=== PATIENT | female | born 1960 | race African-American/Black ===

== ENCOUNTER 2017-01-01 07:48 | Inpatient (IN) | payer MEDICAID, MEDICARE ==
[~2017-01-01] VITALS: Ht 162.6 cm; Wt 45.4 kg
[2017-01-01] VITALS (8 sets, daily range): BP systolic 83–115; BP diastolic 54–76
[2017-01-01] MEDS ORDERED: SODIUM CHLORIDE FLUSH 10ML SYR IVF ONE (08:00)
[2017-01-01] MEDS ORDERED: SODIUM CHLORIDE 0.9% 1,000ML IVBOLUS ONE ×2 (08:00→11:00)
[2017-01-01] MEDS ORDERED: DILTIAZEM 5 MG/ML, 5ML IV ONE (08:00)
[2017-01-01] MEDS ORDERED: DILTIAZEM 5 MG/ML, 5ML ONE ×3 (08:03→11:51)
[2017-01-01] MEDS ORDERED: LORazepam 2 MG/ML, 1ML ONE (08:08)
[2017-01-01 08:29] LABS: ASPARTATE AMINO TRANSFERASE 21 U/L (15-37); BLOOD UREA NITROGEN 12 mg/dL (7-18)
[2017-01-01] MEDS ORDERED: LORazepam 2 MG/ML, 1ML IVPush ONE (08:30)
[2017-01-01 08:34] LABS: IS PT STATUS REG ER OR PRE ER? YES
[2017-01-01] MEDS ORDERED: DILTIAZEM 5 MG/ML, 5ML IVPush ONE ×2 (09:00→12:00)
[2017-01-01 09:02] LABS: HEMOGLOBIN 11.6 g/dL (11.7-16.4)
[2017-01-01] MEDS ORDERED: FUROSEMIDE 20 MG/2 ML IV ONE (09:30)
[2017-01-01] MEDS ORDERED: DILTIAZEM 125 MG in SODIUM CHLORIDE 0.9% 100 ML IV PRN ×2 (09:30→18:00)
[2017-01-01] MEDS ORDERED: FUROSEMIDE 20 MG/2 ML ONE (09:42)
[2017-01-01] MEDS ORDERED: LEVOFLOXACIN/PMX 750MG/150ML 150 ML ONE (10:57)
[2017-01-01] MEDS ORDERED: LEVOFLOXACIN/PMX 750MG/150ML 150 ML IV ONE (11:00)
[2017-01-01] MEDS ORDERED: MAGNESIUM SULFATE PMX 2GM/50ML 50 ML IV ONE (11:00)
[2017-01-01] MEDS ORDERED: LEVO25TA2 PO (11:43)
[2017-01-01] MEDS ORDERED: NITR100C PO (11:43)
[2017-01-01] MEDS ORDERED: DOCUSATE 100 MG CAPSULE PO PRN (12:00)
[2017-01-01] MEDS ORDERED: BISACODYL 10 MG SUPP PR PRN (12:00)
[2017-01-01] MEDS ORDERED: LORazepam 1MG TABLET PO PRN (12:00)
[2017-01-01] MEDS ORDERED: ONDANSETRON ODT 4 MG PO PRN (12:00)
[2017-01-01] MEDS ORDERED: ONDANSETRON 2MG/ML, 2ML IVP PRN (12:00)
[2017-01-01] MEDS ORDERED: DIGOXIN 0.25 MG/ML, 2ML IVPush ONE (12:00)
[2017-01-01] MEDS ORDERED: LABETALOL 5MG/ML, 20ML IV PRN (12:00)
[2017-01-01] MEDS ORDERED: POLYETHYLENE GLYCOL 17 GM PACKET PO PRN (12:00)
[2017-01-01] MEDS ORDERED: POTASSIUM CHLORIDE 20 MEQ TAB.ER.PRT PO ONE (12:30)
[2017-01-01] MEDS ORDERED: ENOXAPARIN 60 MG/0.6 ML SQ SCH (13:30)
[2017-01-01] MEDS: NICOTINE 21 MG/24 HR PATCH.TD24 TD SCH (13:46)
[2017-01-01] MEDS: ALBUTEROL/IPRATROPIUM 2.5MG/0.5MG, 3 ML NPPB SCH ×2 (15:00→20:36)
[2017-01-01] MEDS ORDERED: ASPIRIN 81 MG TABLET EC PO SCH (15:30)
[2017-01-01] MEDS ORDERED: PROPYLTHIOURACIL 50 MG TABLET PO SCH (16:00)
[2017-01-01] MEDS: PROPRANOLOL 40 MG TABLET PO SCH ×3 (16:38→21:56)
[2017-01-01] MEDS: ENOXAPARIN 40 MG/0.4 ML SQ SCH ×2 (16:38→16:49)
[2017-01-01] MEDS: PROPYLTHIOURACIL 50 MG TABLET PO SCH (16:46)
[2017-01-01] MEDS ORDERED: PROP50TA3 PO (16:51)
[2017-01-01 17:50] LABS: RAPID INFLUENZA A Negative (Negative); RAPID INFLUENZA B Negative (Negative)
[2017-01-01] MEDS: MORPHINE SULFATE 4 MG/ML, 1ML IVPush PRN ×2 (19:18→22:01)
[2017-01-01] MEDS ORDERED: ATROPINE SYRINGE 0.1 MG/ML, 10ML ONE (23:27)
[2017-01-01] MEDS ORDERED: GLUCAGON 1 MG IVPush ONE (23:30)
[2017-01-01 23:52] LABS: ABG COLLECTION SITE RIGHT RADIAL; COLLATERAL CIRCULATION TESTING NORMAL
[2017-01-02] VITALS: BP 99/70
[2017-01-02] MEDS ORDERED: ATROPINE SYRINGE 0.1 MG/ML, 10ML IVPush ONE
[2017-01-02] MEDS ORDERED: GLUCAGON 1 MG IVPush PRN
[2017-01-02] MEDS ORDERED: CALCIUM GLUCONATE 4.6 MEQ in SODIUM CHLORIDE 0.9% 50 ML IV ONE
[2017-01-02] MEDS ORDERED: DEXTROSE 50%, 50ML SYRINGE ONE (00:02)
[2017-01-02 00:04] LABS: BLOOD UREA NITROGEN 12 mg/dL (7-18)
[2017-01-02] MEDS ORDERED: CODE BLUE RESPONSE XX ONE ×2 (00:10→01:30)
[2017-01-02] MEDS ORDERED: SODIUM BICARB 8.4%, 50ML SYRINGE ONE ×2 (00:10→00:55)
[2017-01-02] MEDS ORDERED: CALCIUM GLUCONATE 4.6 MEQ/10 ML ONE (00:10)
[2017-01-02] MEDS ORDERED: EPINEPHRINE SYRINGE 0.1 MG/ML, 10ML ONE ×2 (00:10→11:04)
[2017-01-02] MEDS ORDERED: AMIODARONE 50 MG/ML, 3ML ONE (00:10)
[2017-01-02] MEDS ORDERED: CALCIUM CHLORIDE 13.6 MEQ/10 ML ONE (00:10)
[2017-01-02] MEDS: PROPYLTHIOURACIL 50 MG TABLET PO SCH ×2 (00:11→08:11)
[2017-01-02] MEDS ORDERED: ALBUTEROL SULFATE 2.5 MG/3 ML ONE (00:12)
[2017-01-02 00:13] LABS: HEMOGLOBIN 12.2 g/dL (11.7-16.4)
[2017-01-02 00:14] LABS: DIFF TOTAL CELLS COUNTED 100 CELL DIFF
[2017-01-02 00:17] LABS: ANISOCYTOSIS 1+; POLYCHROMASIA 1+; VERIFY COUNTS? YES
[2017-01-02] MEDS ORDERED: EPINEPHRINE 2 MG in SODIUM CHLORIDE 0.9% 248 ML IV PRN (00:30)
[2017-01-02 00:43] LABS: ABG COLLECTION SITE RIGHT BRACHIAL
[2017-01-02] MEDS ORDERED: FUROSEMIDE 40 MG/4 ML IV ONE (01:00)
[2017-01-02] MEDS ORDERED: CEFTRIAXONE PMX 1GM/50ML 50 ML IV SCH (01:00)
[2017-01-02] MEDS ORDERED: SODIUM BICARB 8.4%, 50ML SYRINGE IVPush ONE (01:05)
[2017-01-02 01:16] LABS: BLOOD UREA NITROGEN 11 mg/dL (7-18)
[2017-01-02] MEDS ORDERED: PROPOFOL 100 ML IV ONE (01:47)
[2017-01-02] MEDS ORDERED: INSULIN REGULAR 100 UNITS/ML, 3ML VIAL IVPush ONE (02:00)
[2017-01-02 02:02] LABS: IS PT STATUS REG ER OR PRE ER? NO
[2017-01-02] MEDS ORDERED: LIDOCAINE-MPF 1%, 2ML ENDO PRN (02:30)
[2017-01-02] MEDS ORDERED: PHARMACY MAY ADJ FOR RENAL FX MC SCH (02:30)
[2017-01-02] MEDS: DOXYCYCLINE 100 MG in DEXTROSE 5% 250 ML IV SCH ×2 (03:45→15:38)
[2017-01-02] MEDS: EPINEPHRINE 4 MG in SODIUM CHLORIDE 0.9% 246 ML IV PRN ×2 (03:58→07:33)
[2017-01-02 04:51] LABS: BLOOD UREA NITROGEN 15 mg/dL (7-18)
[2017-01-02 04:56] LABS: ASPARTATE AMINO TRANSFERASE 188 U/L (15-37)
[2017-01-02] MEDS ORDERED: DOPAMINE/D5W PMX 250 ML ONE (05:03)
[2017-01-02 05:28] LABS: ICTOTEST NEGATIVE
[2017-01-02 05:46] VITALS: BP 130/80
[2017-01-02 05:47] LABS: DIFF TOTAL CELLS COUNTED 100 CELL DIFF
[2017-01-02 05:50] LABS: ANISOCYTOSIS 1+; POLYCHROMASIA 1+; VERIFY COUNTS? YES
[2017-01-02] MEDS: ASPIRIN 81 MG TABLET CHEW PO SCH (06:00)
[2017-01-02] MEDS: SODIUM BICARBONATE 8.4% 150 MEQ in DEXTROSE 5% 1,000 ML IV SCH ×3 (07:05→15:38)
[2017-01-02] MEDS: ALBUTEROL/IPRATROPIUM 2.5MG/0.5MG, 3 ML NPPB SCH ×4 (07:09→18:49)
[2017-01-02] MEDS: PROPOFOL 100 ML IV PRN ×2 (07:32→19:57)
[2017-01-02] MEDS: DOPAMINE/D5W PMX 250 ML IV PRN ×2 (08:00→14:49)
[2017-01-02] MEDS ORDERED: ATROPINE SYRINGE 0.1 MG/ML, 10ML ONE (11:05)
[2017-01-02 11:14] LABS: DAU SCREEN DISCLAIMER
[2017-01-02] MEDS ORDERED: LEVOFLOXACIN/PMX 750MG/150ML 150 ML IV SCH (11:30)
[2017-01-02 12:22] LABS: IS PT STATUS REG ER OR PRE ER? NO
[2017-01-02] MEDS: NICOTINE 21 MG/24 HR PATCH.TD24 TD SCH (15:42)
[2017-01-02] MEDS ORDERED: VANCOMYCIN PER PHARMACY MC PRN (17:30)
[2017-01-02] MEDS: MEROPENEM 1 GM in SODIUM CHLORIDE 0.9% 100 ML IV SCH (17:53)
[2017-01-02] MEDS: ENOXAPARIN 40 MG/0.4 ML SQ SCH (17:54)
[2017-01-02] MEDS ORDERED: PHARMACOKINETIC MONITORING MC PRN (18:00)
[2017-01-02] MEDS ORDERED: VANCOMYCIN PMX 1GM/200ML 200 ML IV SCH (18:00)
[2017-01-02] MEDS ORDERED: PHARMACOKINETIC CONSULTATION MC ONE (18:00)
[2017-01-02 18:19] LABS: ASPARTATE AMINO TRANSFERASE 686 U/L (15-37); BLOOD UREA NITROGEN 25 mg/dL (7-18)
[2017-01-02 18:25] LABS: IS PT STATUS REG ER OR PRE ER? NO
[2017-01-03] MEDS: SODIUM BICARBONATE 8.4% 150 MEQ in DEXTROSE 5% 1,000 ML IV SCH (00:03)
[2017-01-03] MEDS: EPINEPHRINE 4 MG in SODIUM CHLORIDE 0.9% 246 ML IV PRN ×2 (00:04→17:06)
[2017-01-03] MEDS: DOPAMINE/D5W PMX 250 ML IV PRN (00:04)
[2017-01-03] MEDS: MEROPENEM 1 GM in SODIUM CHLORIDE 0.9% 100 ML IV SCH ×3 (02:12→17:07)
[2017-01-03] MEDS: ASPIRIN 81 MG TABLET CHEW PO SCH ×2 (06:00→07:46)
[2017-01-03 06:16] LABS: ABG COLLECTION SITE LEFT RADIAL; COLLATERAL CIRCULATION TESTING NORMAL
[2017-01-03 06:21] LABS: ASPARTATE AMINO TRANSFERASE 476 U/L (15-37); BLOOD UREA NITROGEN 28 mg/dL (7-18)
[2017-01-03 06:33] LABS: HEMOGLOBIN 11.1 g/dL (11.7-16.4)
[2017-01-03 06:36] VITALS: BP 86/52
[2017-01-03] MEDS: ALBUTEROL/IPRATROPIUM 2.5MG/0.5MG, 3 ML NPPB SCH ×4 (07:24→22:45)
[2017-01-03] MEDS: PROPOFOL 100 ML IV PRN ×2 (10:08→17:14)
[2017-01-03] MEDS ORDERED: MAGNESIUM SULFATE PMX 4GM/100M 100 ML IV ONE (11:00)
[2017-01-03] MEDS: NS + 20MEQ KCL 1,000 ML IV SCH (12:19)
[2017-01-03] MEDS: NICOTINE 21 MG/24 HR PATCH.TD24 TD SCH (12:21)
[2017-01-03] MEDS: ENOXAPARIN 40 MG/0.4 ML SQ SCH (15:08)
[2017-01-03] MEDS: VANCOMYCIN PMX 1GM/200ML 200 ML IV SCH (21:58)
[2017-01-03] MEDS: MORPHINE SULFATE 4 MG/ML, 1ML IVPush PRN (21:58)
[2017-01-04] MEDS: NS + 20MEQ KCL 1,000 ML IV SCH ×3 (00:10→17:11)
[2017-01-04] MEDS: ALBUTEROL/IPRATROPIUM 2.5MG/0.5MG, 3 ML NPPB SCH ×5 (01:40→18:46)
[2017-01-04] MEDS: MEROPENEM 1 GM in SODIUM CHLORIDE 0.9% 100 ML IV SCH ×3 (02:22→17:11)
[2017-01-04 04:57] LABS: ABG COLLECTION SITE ARTERIAL LINE
[2017-01-04 05:02] LABS: ASPARTATE AMINO TRANSFERASE 161 U/L (15-37); BLOOD UREA NITROGEN 30 mg/dL (7-18)
[2017-01-04 05:08] LABS: HEMOGLOBIN 10.5 g/dL (11.7-16.4)
[2017-01-04] MEDS: PROPOFOL 100 ML IV PRN ×2 (07:32→17:40)
[2017-01-04] MEDS: MORPHINE SULFATE 4 MG/ML, 1ML IVPush PRN ×3 (07:43→22:41)
[2017-01-04] MEDS: QUETIAPINE 25MG TABLET PO SCH ×2 (12:14→20:37)
[2017-01-04] MEDS: NICOTINE 21 MG/24 HR PATCH.TD24 TD SCH (12:15)
[2017-01-04] MEDS ORDERED: ATROPINE SYRINGE 0.1 MG/ML, 10ML ONE (13:58)
[2017-01-04] MEDS ORDERED: OMNIPAQUE 350 MG/ML, 100ML BOTTLE ONE (16:08)
[2017-01-04] MEDS ORDERED: AMIODARONE 150 MG in DEXTROSE 5% 100 ML IV ONE (17:00)
[2017-01-04] MEDS: AMIODARONE 900 MG in DEXTROSE 5% 482 ML IV PRN (17:24)
[2017-01-04] MEDS: ENOXAPARIN 40 MG/0.4 ML SQ SCH (17:38)
[2017-01-04] MEDS ORDERED: HEPARIN 5,000 UNITS/ML, 1ML IV ONE (18:30)
[2017-01-04] MEDS: HEPARIN 25,000 UNITS/500ML PMX 500 ML IV PRN (19:40)
[2017-01-04] MEDS: VANCOMYCIN PMX 1GM/200ML 200 ML IV SCH (20:35)
[2017-01-05] MEDS: MEROPENEM 1 GM in SODIUM CHLORIDE 0.9% 100 ML IV SCH ×3 (01:34→17:39)
[2017-01-05] MEDS: NS + 20MEQ KCL 1,000 ML IV SCH ×2 (03:08→13:34)
[2017-01-05 04:33] LABS: ABG COLLECTION SITE RIGHT RADIAL; COLLATERAL CIRCULATION TESTING NORMAL
[2017-01-05] MEDS: MORPHINE SULFATE 4 MG/ML, 1ML IVPush PRN ×2 (04:59→09:34)
[2017-01-05 05:41] LABS: HEMOGLOBIN 9.9 g/dL (11.7-16.4)
[2017-01-05 05:55] LABS: BLOOD UREA NITROGEN 23 mg/dL (7-18)
[2017-01-05 06:00] LABS: ASPARTATE AMINO TRANSFERASE 57 U/L (15-37)
[2017-01-05] MEDS: ASPIRIN 81 MG TABLET CHEW PO SCH (06:24)
[2017-01-05] MEDS: ALBUTEROL/IPRATROPIUM 2.5MG/0.5MG, 3 ML NPPB SCH ×2 (07:00→11:00)
[2017-01-05] MEDS ORDERED: VANCOMYCIN PMX 1GM/200ML 200 ML IV SCH ×2 (08:30)
[2017-01-05] MEDS: QUETIAPINE 25MG TABLET PO SCH ×2 (09:33→21:13)
[2017-01-05] MEDS: HEPARIN 5,000 UNITS/ML, 1ML IV PRN ×2 (09:34→16:18)
[2017-01-05] MEDS ORDERED: PROPOFOL 10 MG/ML, 20ML ONE (11:01)
[2017-01-05] MEDS ORDERED: SUCCINYLCHOLINE 20 MG/ML, 10ML ONE (11:01)
[2017-01-05] MEDS ORDERED: ETOMIDATE 20 MG/10 ML ONE (11:01)
[2017-01-05] MEDS ORDERED: PROPOFOL 10 MG/ML, 100ML IV ONE (11:01)
[2017-01-05] MEDS: NICOTINE 21 MG/24 HR PATCH.TD24 TD SCH (12:53)
[2017-01-05] MEDS: AMIODARONE 900 MG in DEXTROSE 5% 482 ML IV PRN ×2 (12:53→23:31)
[2017-01-05] MEDS: AMIODARONE 200 MG TABLET PO SCH ×2 (14:33→21:13)
[2017-01-05] MEDS: OXYcodone IR 5MG TABLET PO PRN (16:13)
[2017-01-05] MEDS ORDERED: ALBUTEROL/IPRATROPIUM 2.5MG/0.5MG, 3 ML ONE ×2 (21:05→21:47)
[2017-01-05 21:31] LABS: ABG COLLECTION SITE LEFT BRACHIAL
[2017-01-05] MEDS ORDERED: LORazepam 2 MG/ML, 1ML ONE (21:42)
[2017-01-05] MEDS ORDERED: LORazepam 2 MG/ML, 1ML IVPush ONE (22:00)
[2017-01-05] MEDS ORDERED: FUROSEMIDE 40 MG/4 ML IV ONE (22:00)
[2017-01-05] MEDS ORDERED: AMIODARONE 150 MG in DEXTROSE 5% 100 ML IV ONE (22:00)
[2017-01-05] MEDS: PROPOFOL 100 ML IV PRN (22:30)
[2017-01-05] MEDS ORDERED: CALCIUM GLUCONATE 4.6 MEQ in SODIUM CHLORIDE 0.9% 50 ML IV ONE (22:30)
[2017-01-05] MEDS ORDERED: LIDOCAINE-MPF 1%, 2ML ENDO ONE (23:00)
[2017-01-05 23:25] LABS: HEMOGLOBIN 10.8 g/dL (11.7-16.4)
[2017-01-05 23:27] LABS: ASPARTATE AMINO TRANSFERASE 53 U/L (15-37); BLOOD UREA NITROGEN 19 mg/dL (7-18)
[2017-01-05] MEDS: methylPREDNISolone SOD SUCC 125 MG/2 ML IVPush SCH (23:49)
[2017-01-05 23:51] LABS: ABG COLLECTION SITE LEFT BRACHIAL
[2017-01-06] MEDS ORDERED: LIDOCAINE-MPF 1%, 2ML INFIL PRN
[2017-01-06] MEDS ORDERED: LORazepam 2 MG/ML, 1ML IVPush ONE (00:30)
[2017-01-06] MEDS: HEPARIN 5,000 UNITS/ML, 1ML IV PRN (00:49)
[2017-01-06] MEDS ORDERED: SUCCINYLCHOLINE 20 MG/ML, 10ML IVPush ONE (01:00)
[2017-01-06] MEDS ORDERED: ETOMIDATE 20 MG/10 ML IVPush ONE (01:00)
[2017-01-06] MEDS: HEPARIN 25,000 UNITS/500ML PMX 500 ML IV PRN (02:06)
[2017-01-06] MEDS: MEROPENEM 1 GM in SODIUM CHLORIDE 0.9% 100 ML IV SCH ×3 (02:07→18:22)
[2017-01-06] MEDS: PROPOFOL 100 ML IV PRN ×2 (02:25→15:34)
[2017-01-06] MEDS ORDERED: LIDOCAINE-MPF 1%, 2ML ENDO PRN (02:30)
[2017-01-06 04:38] LABS: ABG COLLECTION SITE LEFT RADIAL; COLLATERAL CIRCULATION TESTING NORMAL; HEMOGLOBIN 10.9 g/dL (11.7-16.4)
[2017-01-06 04:57] LABS: BLOOD UREA NITROGEN 25 mg/dL (7-18)
[2017-01-06] MEDS: methylPREDNISolone SOD SUCC 125 MG/2 ML IVPush SCH ×4 (05:10→20:57)
[2017-01-06 05:42] LABS: DIFF TOTAL CELLS COUNTED 100 CELL DIFF
[2017-01-06 05:43] LABS: VERIFY COUNTS? YES
[2017-01-06 05:44] LABS: POLYCHROMASIA 1+
[2017-01-06 05:45] LABS: HYPOCHROMIA 1+
[2017-01-06 05:46] LABS: LARGE PLATELETS 1+
[2017-01-06] MEDS: ASPIRIN 81 MG TABLET CHEW PO SCH (06:33)
[2017-01-06] MEDS ORDERED: ALBUMIN HUMAN 25% 100 ML IV ONE (09:00)
[2017-01-06] MEDS: AMIODARONE 200 MG TABLET PO SCH ×2 (10:05→20:57)
[2017-01-06] MEDS: QUETIAPINE 25MG TABLET PO SCH ×2 (10:05→20:56)
[2017-01-06] MEDS ORDERED: FUROSEMIDE 20 MG/2 ML IV ONE (10:30)
[2017-01-06] MEDS: NICOTINE 21 MG/24 HR PATCH.TD24 TD SCH (13:38)
[2017-01-07] MEDS: MEROPENEM 1 GM in SODIUM CHLORIDE 0.9% 100 ML IV SCH ×3 (01:11→16:20)
[2017-01-07] MEDS: PROPOFOL 100 ML IV PRN ×2 (01:11→15:35)
[2017-01-07] MEDS: FILTER 0.22 MICRON IV PRN (02:04)
[2017-01-07] MEDS: AMIODARONE 900 MG in DEXTROSE 5% 482 ML IV PRN (02:05)
[2017-01-07] MEDS: methylPREDNISolone SOD SUCC 125 MG/2 ML IVPush SCH ×4 (04:02→22:23)
[2017-01-07] MEDS: HEPARIN 25,000 UNITS/500ML PMX 500 ML IV PRN (04:05)
[2017-01-07 04:51] LABS: ABG COLLECTION SITE ARTERIAL LINE
[2017-01-07] MEDS: HEPARIN 5,000 UNITS/ML, 1ML IV PRN ×3 (05:51→20:21)
[2017-01-07] MEDS: ASPIRIN 81 MG TABLET CHEW PO SCH (06:42)
[2017-01-07] MEDS: AMIODARONE 200 MG TABLET PO SCH ×2 (07:52→20:22)
[2017-01-07] MEDS: QUETIAPINE 25MG TABLET PO SCH ×2 (07:52→20:22)
[2017-01-07 08:32] LABS: BLOOD UREA NITROGEN 35 mg/dL (7-18)
[2017-01-07] MEDS ORDERED: ALBUMIN HUMAN 25% 100 ML IV ONE (09:00)
[2017-01-07] MEDS ORDERED: FUROSEMIDE 40 MG/4 ML IV ONE (09:00)
[2017-01-07] MEDS: CHOLESTYRAMINE 4GM PACKET PO SCH ×2 (09:04→20:22)
[2017-01-07] MEDS: NICOTINE 21 MG/24 HR PATCH.TD24 TD SCH (12:00)
[2017-01-07] MEDS: ALBUTEROL/IPRATROPIUM 2.5MG/0.5MG, 3 ML NPPB PRN (22:53)
[2017-01-08] MEDS: MEROPENEM 1 GM in SODIUM CHLORIDE 0.9% 100 ML IV SCH ×3 (01:36→17:42)
[2017-01-08] MEDS: methylPREDNISolone SOD SUCC 125 MG/2 ML IVPush SCH ×4 (03:29→21:21)
[2017-01-08] MEDS: HEPARIN 25,000 UNITS/500ML PMX 500 ML IV PRN ×2 (03:36→22:02)
[2017-01-08 04:27] LABS: ABG COLLECTION SITE LEFT RADIAL; COLLATERAL CIRCULATION TESTING NORMAL
[2017-01-08 04:43] LABS: BLOOD UREA NITROGEN 35 mg/dL (7-18)
[2017-01-08] MEDS: ASPIRIN 81 MG TABLET CHEW PO SCH (06:31)
[2017-01-08] MEDS ORDERED: MAGNESIUM SULFATE PMX 2GM/50ML 50 ML IV ONE (07:00)
[2017-01-08] MEDS: AMIODARONE 200 MG TABLET PO SCH ×2 (08:04→21:20)
[2017-01-08] MEDS: QUETIAPINE 25MG TABLET PO SCH ×2 (08:04→21:20)
[2017-01-08] MEDS: CHOLESTYRAMINE 4GM PACKET PO SCH ×2 (08:04→21:20)
[2017-01-08 08:08] LABS: HEMOGLOBIN 9.7 g/dL (11.7-16.4)
[2017-01-08] MEDS: FILTER 0.22 MICRON IV PRN (08:12)
[2017-01-08] MEDS: AMIODARONE 900 MG in DEXTROSE 5% 482 ML IV PRN (08:12)
[2017-01-08 08:42] LABS: DIFF TOTAL CELLS COUNTED 100 CELL DIFF
[2017-01-08 08:43] LABS: VERIFY COUNTS? YES
[2017-01-08 08:44] LABS: LARGE PLATELETS 1+; POLYCHROMASIA 1+
[2017-01-08] MEDS: HEPARIN 5,000 UNITS/ML, 1ML IV PRN ×2 (08:59→22:50)
[2017-01-08] MEDS: ALBUMIN HUMAN 25% 100 ML IV SCH (09:54)
[2017-01-08] MEDS: FUROSEMIDE 40 MG/4 ML IV SCH (11:09)
[2017-01-08] MEDS: NICOTINE 21 MG/24 HR PATCH.TD24 TD SCH (11:12)
[2017-01-08] MEDS: MORPHINE SULFATE 4 MG/ML, 1ML IVPush PRN ×2 (19:28→22:30)
[2017-01-08] MEDS: ALBUTEROL/IPRATROPIUM 2.5MG/0.5MG, 3 ML NPPB PRN ×2 (19:35→21:45)
[2017-01-09] MEDS: MEROPENEM 1 GM in SODIUM CHLORIDE 0.9% 100 ML IV SCH ×3 (01:25→17:34)
[2017-01-09] MEDS: PROPOFOL 100 ML IV PRN (01:45)
[2017-01-09] MEDS: ALBUTEROL/IPRATROPIUM 2.5MG/0.5MG, 3 ML NPPB PRN (02:32)
[2017-01-09] MEDS: methylPREDNISolone SOD SUCC 125 MG/2 ML IVPush SCH ×4 (04:06→20:55)
[2017-01-09 04:58] LABS: HEMOGLOBIN 9.8 g/dL (11.7-16.4)
[2017-01-09 05:09] LABS: BLOOD UREA NITROGEN 35 mg/dL (7-18)
[2017-01-09] MEDS: ASPIRIN 81 MG TABLET CHEW PO SCH (05:09)
[2017-01-09] MEDS: CHOLESTYRAMINE 4GM PACKET PO SCH ×2 (09:00→20:53)
[2017-01-09] MEDS: INSULIN ASPART 100 UNITS/ML, PEN SQ-INSULIN SCH ×4 (09:07→20:55)
[2017-01-09] MEDS: ALBUMIN HUMAN 25% 100 ML IV SCH (09:07)
[2017-01-09] MEDS: QUETIAPINE 25MG TABLET PO SCH ×2 (09:47→20:55)
[2017-01-09] MEDS: AMIODARONE 200 MG TABLET PO SCH ×2 (09:47→20:55)
[2017-01-09] MEDS: FUROSEMIDE 40 MG/4 ML IV SCH (10:05)
[2017-01-09] MEDS: NICOTINE 21 MG/24 HR PATCH.TD24 TD SCH (12:23)
[2017-01-09] MEDS: HEPARIN 25,000 UNITS/500ML PMX 500 ML IV PRN (16:28)
[2017-01-10] MEDS: MEROPENEM 1 GM in SODIUM CHLORIDE 0.9% 100 ML IV SCH ×3 (01:39→17:25)
[2017-01-10] MEDS: methylPREDNISolone SOD SUCC 125 MG/2 ML IVPush SCH ×4 (03:56→21:55)
[2017-01-10 04:18] VITALS: BP 124/66
[2017-01-10] MEDS: ASPIRIN 81 MG TABLET CHEW PO SCH (05:14)
[2017-01-10 07:38] LABS: ABG COLLECTION SITE LEFT RADIAL; COLLATERAL CIRCULATION TESTING NORMAL
[2017-01-10 07:41] LABS: HEMOGLOBIN 9.6 g/dL (11.7-16.4)
[2017-01-10 07:46] LABS: BLOOD UREA NITROGEN 37 mg/dL (7-18)
[2017-01-10] MEDS: INSULIN ASPART 100 UNITS/ML, PEN SQ-INSULIN SCH ×4 (07:58→23:00)
[2017-01-10] MEDS: ALBUMIN HUMAN 25% 100 ML IV SCH ×2 (08:06→19:17)
[2017-01-10 08:09] LABS: DIFF TOTAL CELLS COUNTED 100 CELL DIFF
[2017-01-10 08:16] LABS: VERIFY COUNTS? YES
[2017-01-10 08:17] LABS: LARGE PLATELETS 1+; POLYCHROMASIA 1+
[2017-01-10] MEDS: HEPARIN 25,000 UNITS/500ML PMX 500 ML IV PRN (08:28)
[2017-01-10] MEDS: FUROSEMIDE 40 MG/4 ML IV SCH ×2 (09:28→20:30)
[2017-01-10] MEDS: AMIODARONE 200 MG TABLET PO SCH (11:27)
[2017-01-10] MEDS: CHOLESTYRAMINE 4GM PACKET PO SCH ×2 (11:27→21:00)
[2017-01-10] MEDS: NICOTINE 21 MG/24 HR PATCH.TD24 TD SCH (11:57)
[2017-01-10] MEDS: AMIODARONE 150 MG in DEXTROSE 5% 100 ML IV SCH (21:38)
[2017-01-11] MEDS: HEPARIN 25,000 UNITS/500ML PMX 500 ML IV PRN ×2 (00:06→17:53)
[2017-01-11] MEDS: MEROPENEM 1 GM in SODIUM CHLORIDE 0.9% 100 ML IV SCH ×3 (01:44→17:38)
[2017-01-11] MEDS: MORPHINE SULFATE 4 MG/ML, 1ML IVPush PRN ×3 (01:49→23:00)
[2017-01-11] MEDS: INSULIN ASPART 100 UNITS/ML, PEN SQ-INSULIN SCH ×4 (04:37→22:57)
[2017-01-11] MEDS: methylPREDNISolone SOD SUCC 125 MG/2 ML IVPush SCH ×2 (04:37→10:18)
[2017-01-11 04:39] LABS: HEMOGLOBIN 10.4 g/dL (11.7-16.4)
[2017-01-11 04:49] LABS: BLOOD UREA NITROGEN 34 mg/dL (7-18)
[2017-01-11 04:52] LABS: ASPARTATE AMINO TRANSFERASE 29 U/L (15-37)
[2017-01-11] MEDS: ASPIRIN 81 MG TABLET CHEW PO SCH (05:54)
[2017-01-11] MEDS: ALBUMIN HUMAN 25% 100 ML IV SCH ×2 (08:03→19:30)
[2017-01-11] MEDS: CHOLESTYRAMINE 4GM PACKET PO SCH ×2 (09:00→21:00)
[2017-01-11] MEDS: FAMOTIDINE 20 MG/2 ML IVPush SCH ×2 (09:24→20:40)
[2017-01-11] MEDS: FUROSEMIDE 40 MG/4 ML IV SCH ×2 (09:25→20:40)
[2017-01-11] MEDS: AMIODARONE 150 MG in DEXTROSE 5% 100 ML IV SCH ×2 (10:18→20:39)
[2017-01-11] MEDS ORDERED: ALBUTEROL/IPRATROPIUM 2.5MG/0.5MG, 3 ML ONE (12:03)
[2017-01-11] MEDS: NICOTINE 21 MG/24 HR PATCH.TD24 TD SCH (17:10)
[2017-01-11] MEDS: methylPREDNISolone SOD SUCC 40 MG/ML IVPush SCH (17:38)
[2017-01-12] MEDS: MEROPENEM 1 GM in SODIUM CHLORIDE 0.9% 100 ML IV SCH ×3 (01:31→17:58)
[2017-01-12] MEDS: methylPREDNISolone SOD SUCC 40 MG/ML IVPush SCH ×3 (02:11→17:57)
[2017-01-12] MEDS: INSULIN ASPART 100 UNITS/ML, PEN SQ-INSULIN SCH ×4 (04:33→23:00)
[2017-01-12 04:44] LABS: HEMOGLOBIN 10.6 g/dL (11.7-16.4)
[2017-01-12 04:50] LABS: ASPARTATE AMINO TRANSFERASE 26 U/L (15-37); BLOOD UREA NITROGEN 36 mg/dL (7-18)
[2017-01-12] MEDS ORDERED: POTASSIUM CHLORIDE 40 MEQ in SODIUM CHLORIDE 0.9% 500 ML IV ONE (06:00)
[2017-01-12] MEDS: ASPIRIN 81 MG TABLET CHEW PO SCH (06:00)
[2017-01-12] MEDS: ALBUMIN HUMAN 25% 100 ML IV SCH (08:08)
[2017-01-12] MEDS: AMIODARONE 150 MG in DEXTROSE 5% 100 ML IV SCH (09:00)
[2017-01-12] MEDS: FUROSEMIDE 40 MG/4 ML IV SCH (09:00)
[2017-01-12] MEDS ORDERED: POTASSIUM CHLORIDE 10% 40 MEQ/30 ML UDC PO ONE (09:30)
[2017-01-12] MEDS: FAMOTIDINE 20 MG/2 ML IVPush SCH ×2 (09:30→22:05)
[2017-01-12] MEDS ORDERED: MAGNESIUM SULFATE PMX 4GM/100M 100 ML IV ONE (09:30)
[2017-01-12] MEDS: CHOLESTYRAMINE 4GM PACKET PO SCH ×2 (09:31→21:00)
[2017-01-12] MEDS: AMIODARONE 200 MG TABLET PO SCH ×2 (09:46→21:00)
[2017-01-12] MEDS: CARVEDILOL 3.125 MG TABLET PO SCH ×2 (09:46→17:57)
[2017-01-12] MEDS: HEPARIN 25,000 UNITS/500ML PMX 500 ML IV PRN (11:08)
[2017-01-12] MEDS: LISINOPRIL 5 MG TABLET PO SCH ×2 (12:12→21:00)
[2017-01-12] MEDS: NICOTINE 21 MG/24 HR PATCH.TD24 TD SCH (12:12)
[2017-01-12] MEDS ORDERED: FUROSEMIDE 20 MG/2 ML IV ONE (18:00)
[2017-01-12 21:48] VITALS: BP_SYST 172; BP_SYST 177; BP_DIAS 108
[2017-01-12] MEDS: MORPHINE SULFATE 4 MG/ML, 1ML IVPush PRN ×2 (22:05→22:52)
[2017-01-12] MEDS ORDERED: FUROSEMIDE 40 MG/4 ML ONE (22:18)
[2017-01-12] MEDS ORDERED: FUROSEMIDE 40 MG/4 ML IV ONE (22:30)
[2017-01-12 22:53] LABS: ABG COLLECTION SITE RIGHT BRACHIAL
[2017-01-12] MEDS: AMIODARONE 900 MG in DEXTROSE 5% 482 ML IV PRN (23:46)
[2017-01-12] MEDS: FILTER 0.22 MICRON IV PRN (23:46)
[2017-01-13 00:22] VITALS: BP 161/98
[2017-01-13] MEDS: MEROPENEM 1 GM in SODIUM CHLORIDE 0.9% 100 ML IV SCH ×3 (02:00→19:00)
[2017-01-13] MEDS: MORPHINE SULFATE 4 MG/ML, 1ML IVPush PRN ×3 (03:05→20:42)
[2017-01-13] MEDS: methylPREDNISolone SOD SUCC 40 MG/ML IVPush SCH ×3 (03:05→19:00)
[2017-01-13] MEDS: HEPARIN 25,000 UNITS/500ML PMX 500 ML IV PRN ×2 (05:07→17:06)
[2017-01-13 05:29] LABS: HEMOGLOBIN 10.8 g/dL (11.7-16.4)
[2017-01-13] MEDS: CARVEDILOL 3.125 MG TABLET PO SCH (05:54)
[2017-01-13] MEDS: ASPIRIN 81 MG TABLET CHEW PO SCH (05:54)
[2017-01-13 05:57] LABS: ASPARTATE AMINO TRANSFERASE 27 U/L (15-37); BLOOD UREA NITROGEN 28 mg/dL (7-18)
[2017-01-13] MEDS: INSULIN ASPART 100 UNITS/ML, PEN SQ-INSULIN SCH ×4 (06:02→23:00)
[2017-01-13 06:41] VITALS: BP 137/78
[2017-01-13] MEDS: CHOLESTYRAMINE 4GM PACKET PO SCH (09:00)
[2017-01-13] MEDS: LISINOPRIL 5 MG TABLET PO SCH ×2 (09:00→21:00)
[2017-01-13] MEDS: AMIODARONE 200 MG TABLET PO SCH ×2 (09:00→21:00)
[2017-01-13] MEDS: FAMOTIDINE 20 MG/2 ML IVPush SCH ×2 (11:43→20:59)
[2017-01-13] MEDS: NICOTINE 21 MG/24 HR PATCH.TD24 TD SCH (11:43)
[2017-01-13 14:42] VITALS: BP 157/101
[2017-01-13] MEDS: AMIODARONE 900 MG in DEXTROSE 5% 482 ML IV PRN (17:03)
[2017-01-13] MEDS: FILTER 0.22 MICRON IV PRN (17:03)
[2017-01-13 17:22] VITALS: BP 164/98
[2017-01-13 18:57] VITALS: BP 161/100
[2017-01-13] MEDS: hydrALAzine 20 MG/ML, 1ML IV PRN (18:57)
[2017-01-13 20:00] VITALS: BP 129/89
[2017-01-14] VITALS (12 sets, daily range): BP systolic 122–178; BP diastolic 62–117
[2017-01-14] MEDS: MORPHINE SULFATE 4 MG/ML, 1ML IVPush PRN ×3 (01:54→21:02)
[2017-01-14] MEDS: MEROPENEM 1 GM in SODIUM CHLORIDE 0.9% 100 ML IV SCH ×3 (04:14→21:26)
[2017-01-14] MEDS: methylPREDNISolone SOD SUCC 40 MG/ML IVPush SCH ×3 (04:15→21:02)
[2017-01-14] MEDS: INSULIN ASPART 100 UNITS/ML, PEN SQ-INSULIN SCH ×4 (05:10→23:31)
[2017-01-14 05:30] LABS: HEMOGLOBIN 10.3 g/dL (11.7-16.4)
[2017-01-14 05:41] LABS: BLOOD UREA NITROGEN 23 mg/dL (7-18)
[2017-01-14 05:44] LABS: ASPARTATE AMINO TRANSFERASE 35 U/L (15-37)
[2017-01-14] MEDS: ASPIRIN 81 MG TABLET CHEW PO SCH (06:33)
[2017-01-14] MEDS: FAMOTIDINE 20 MG/2 ML IVPush SCH ×2 (08:54→21:02)
[2017-01-14] MEDS: AMIODARONE 200 MG TABLET PO SCH ×2 (08:54→21:02)
[2017-01-14] MEDS: LISINOPRIL 5 MG TABLET PO SCH ×2 (08:55→21:01)
[2017-01-14] MEDS: HEPARIN 25,000 UNITS/500ML PMX 500 ML IV PRN (10:21)
[2017-01-14] MEDS: hydrALAzine 20 MG/ML, 1ML IV PRN (10:22)
[2017-01-14] MEDS: NICOTINE 21 MG/24 HR PATCH.TD24 TD SCH (11:56)
[2017-01-14] MEDS ORDERED: FUROSEMIDE 20 MG/2 ML IV ONE (13:30)
[2017-01-14] MEDS ORDERED: POTASSIUM CHLORIDE 20 MEQ PACKET PO ONE (15:00)
[2017-01-14] MEDS ORDERED: MAGNESIUM SULFATE PMX 2GM/50ML 50 ML IV ONE (15:30)
[2017-01-14 17:28] LABS: DAU SCREEN DISCLAIMER
[2017-01-15] MEDS ORDERED: LORazepam 2 MG/ML, 1ML IVPush ONE ×2 (00:05→01:50)
[2017-01-15 00:42] LABS: ABG COLLECTION SITE LEFT RADIAL; COLLATERAL CIRCULATION TESTING NORMAL
[2017-01-15 00:52] LABS: IS PT STATUS REG ER OR PRE ER? NO
[2017-01-15] MEDS ORDERED: FUROSEMIDE 20 MG/2 ML IV ONE ×2 (01:30)
[2017-01-15 02:42] VITALS: BP 126/77
[2017-01-15] MEDS: methylPREDNISolone SOD SUCC 40 MG/ML IVPush SCH ×3 (04:52→21:36)
[2017-01-15] MEDS: MEROPENEM 1 GM in SODIUM CHLORIDE 0.9% 100 ML IV SCH ×3 (04:52→21:36)
[2017-01-15] MEDS: INSULIN ASPART 100 UNITS/ML, PEN SQ-INSULIN SCH ×3 (05:00→17:00)
[2017-01-15] MEDS: HEPARIN 25,000 UNITS/500ML PMX 500 ML IV PRN (05:23)
[2017-01-15 05:54] LABS: HEMOGLOBIN 10.7 g/dL (11.7-16.4)
[2017-01-15] MEDS: ASPIRIN 81 MG TABLET CHEW PO SCH (06:00)
[2017-01-15 06:04] LABS: BLOOD UREA NITROGEN 25 mg/dL (7-18)
[2017-01-15 06:08] LABS: IS PT STATUS REG ER OR PRE ER? NO
[2017-01-15 08:09] VITALS: BP 158/77
[2017-01-15] MEDS: AMIODARONE 900 MG in DEXTROSE 5% 482 ML IV PRN (08:49)
[2017-01-15] MEDS ORDERED: AMIODARONE 150 MG in DEXTROSE 5% 100 ML IV ONE (09:00)
[2017-01-15] MEDS ORDERED: POTASSIUM CHLORIDE 20 MEQ TAB.ER.PRT PO ONE ×2 (09:00→12:30)
[2017-01-15] MEDS: FAMOTIDINE 20 MG/2 ML IVPush SCH ×2 (09:00→21:36)
[2017-01-15] MEDS: AMIODARONE 200 MG TABLET PO SCH ×2 (09:00→21:00)
[2017-01-15] MEDS: LISINOPRIL 5 MG TABLET PO SCH ×2 (09:00→21:00)
[2017-01-15 09:11] LABS: ABG COLLECTION SITE LEFT RADIAL; COLLATERAL CIRCULATION TESTING NORMAL
[2017-01-15] MEDS ORDERED: FUROSEMIDE 40 MG/4 ML ONE (09:11)
[2017-01-15] MEDS ORDERED: FUROSEMIDE 40 MG/4 ML IV ONE (09:30)
[2017-01-15] MEDS: NICOTINE 21 MG/24 HR PATCH.TD24 TD SCH (12:38)
[2017-01-15 13:29] LABS: IS PT STATUS REG ER OR PRE ER? NO
[2017-01-15] MEDS ORDERED: POTASSIUM CHLORIDE 40 MEQ in SODIUM CHLORIDE 0.9% 500 ML IV ONE (17:00)
[2017-01-15 17:35] VITALS: BP 154/96
[2017-01-15 20:00] VITALS: BP 147/94
[2017-01-16] VITALS (9 sets, daily range): BP systolic 133–165; BP diastolic 84–101
[2017-01-16] MEDS: HEPARIN 25,000 UNITS/500ML PMX 500 ML IV PRN (01:04)
[2017-01-16] MEDS: INSULIN ASPART 100 UNITS/ML, PEN SQ-INSULIN SCH ×5 (01:04→23:45)
[2017-01-16] MEDS: methylPREDNISolone SOD SUCC 40 MG/ML IVPush SCH ×3 (04:20→22:10)
[2017-01-16 05:25] LABS: HEMOGLOBIN 10.1 g/dL (11.7-16.4)
[2017-01-16 05:33] LABS: BLOOD UREA NITROGEN 27 mg/dL (7-18)
[2017-01-16 05:37] LABS: ASPARTATE AMINO TRANSFERASE 24 U/L (15-37)
[2017-01-16] MEDS: ASPIRIN 81 MG TABLET CHEW PO SCH (06:00)
[2017-01-16] MEDS ORDERED: LORazepam 2 MG/ML, 1ML IVPush ONE ×2 (08:30→15:30)
[2017-01-16] MEDS: LISINOPRIL 5 MG TABLET PO SCH ×2 (08:44→22:10)
[2017-01-16] MEDS: AMIODARONE 200 MG TABLET PO SCH ×2 (08:44→21:00)
[2017-01-16] MEDS ORDERED: SODIUM CHLORIDE 0.9% 1,000 ML IV SCH (09:48)
[2017-01-16] MEDS ORDERED: VANCOMYCIN PMX 1GM/200ML 200 ML IVPB ONE (11:00)
[2017-01-16] MEDS: FAMOTIDINE 20 MG/2 ML IVPush SCH ×2 (11:30→23:33)
[2017-01-16] MEDS: NICOTINE 21 MG/24 HR PATCH.TD24 TD SCH ×2 (12:00→16:23)
[2017-01-16] MEDS: hydrALAzine 20 MG/ML, 1ML IV PRN (13:02)
[2017-01-16] MEDS ORDERED: MAGNESIUM SULFATE PMX 2GM/50ML 50 ML IV ONE (15:30)
[2017-01-16] MEDS ORDERED: FUROSEMIDE 40 MG/4 ML IV ONE (17:00)
[2017-01-16] MEDS ORDERED: CEFAZOLIN 1,000 MG ONE ×2 (17:36→17:46)
[2017-01-16] MEDS ORDERED: FENTANYL PF 100 MCG/2ML ONE ×2 (17:36→17:45)
[2017-01-16] MEDS ORDERED: MIDAZOLAM 1 MG/ML, 5ML ONE ×2 (17:36→17:46)
[2017-01-16] MEDS ORDERED: CEFAZOLIN PMX 1GM/50ML 0 ML ONE ×2 (17:36→17:46)
[2017-01-16] MEDS ORDERED: LIDOCAINE 2%, 20ML ONE ×2 (17:36→17:46)
[2017-01-16] MEDS: AMIODARONE 900 MG in DEXTROSE 5% 482 ML IV PRN (17:54)
[2017-01-17 01:43] VITALS: BP 152/85
[2017-01-17] MEDS: HEPARIN 25,000 UNITS/500ML PMX 500 ML IV PRN (03:29)
[2017-01-17] MEDS: OXYcodone IR 5MG TABLET PO PRN ×2 (04:42→20:18)
[2017-01-17] MEDS: INSULIN ASPART 100 UNITS/ML, PEN SQ-INSULIN SCH ×3 (05:00→17:00)
[2017-01-17 06:01] LABS: HEMOGLOBIN 10.8 g/dL (11.7-16.4)
[2017-01-17] MEDS: methylPREDNISolone SOD SUCC 40 MG/ML IVPush SCH ×2 (06:07→14:24)
[2017-01-17] MEDS: ASPIRIN 81 MG TABLET CHEW PO SCH (06:07)
[2017-01-17 06:08] LABS: BLOOD UREA NITROGEN 29 mg/dL (7-18)
[2017-01-17 06:55] VITALS: BP 140/76
[2017-01-17] MEDS: LISINOPRIL 5 MG TABLET PO SCH ×2 (09:00→20:17)
[2017-01-17] MEDS: AMIODARONE 200 MG TABLET PO SCH (09:00)
[2017-01-17] MEDS: SODIUM CHLORIDE 0.9% 1,000 ML IV SCH (09:48)
[2017-01-17] MEDS ORDERED: VANCOMYCIN PMX 1GM/200ML 200 ML ONE (09:53)
[2017-01-17] MEDS ORDERED: VANCOMYCIN 500 MG ONE (09:53)
[2017-01-17] MEDS ORDERED: DIPHENHYDRAMINE 50 MG/ML, 1ML ONE (09:56)
[2017-01-17] MEDS ORDERED: MIDAZOLAM 1 MG/ML, 5ML ONE (09:56)
[2017-01-17] MEDS ORDERED: FENTANYL PF 100 MCG/2ML ONE (09:56)
[2017-01-17] MEDS ORDERED: HYDROcodone/APAP 5/325 TABLET PO PRN (10:00)
[2017-01-17] MEDS ORDERED: LIDOCAINE 2%, 20ML ONE (10:09)
[2017-01-17 12:42] VITALS: BP 157/82
[2017-01-17] MEDS: AMIODARONE 900 MG in DEXTROSE 5% 482 ML IV SCH ×2 (13:15→20:21)
[2017-01-17] MEDS ORDERED: HEPARIN 25,000 UNITS/500ML PMX 500 ML IV PRN (14:00)
[2017-01-17] MEDS: NICOTINE 21 MG/24 HR PATCH.TD24 TD SCH (14:24)
[2017-01-17] MEDS: FAMOTIDINE 20 MG/2 ML IVPush SCH ×2 (14:24→20:17)
[2017-01-17] MEDS: SODIUM CHLORIDE FLUSH 10ML SYR IVF SCH (20:17)
[2017-01-18] MEDS: methylPREDNISolone SOD SUCC 40 MG/ML IVPush SCH ×3 (00:05→16:09)
[2017-01-18] MEDS: INSULIN ASPART 100 UNITS/ML, PEN SQ-INSULIN SCH ×5 (00:10→23:00)
[2017-01-18 00:28] VITALS: BP 165/83
[2017-01-18] MEDS ORDERED: FUROSEMIDE 20 MG/2 ML IV ONE (00:40)
[2017-01-18] MEDS: SODIUM CHLORIDE 0.9% 1,000 ML IV SCH ×2 (00:57→12:28)
[2017-01-18] MEDS: CLINDAMYCIN PMX 600MG/50ML 50 ML IV SCH ×3 (01:15→18:07)
[2017-01-18] MEDS: ASPIRIN 81 MG TABLET CHEW PO SCH (04:37)
[2017-01-18 06:34] LABS: BLOOD UREA NITROGEN 28 mg/dL (7-18)
[2017-01-18 06:40] LABS: ASPARTATE AMINO TRANSFERASE 41 U/L (15-37)
[2017-01-18 06:53] LABS: DIFF TOTAL CELLS COUNTED 100 CELL DIFF
[2017-01-18 06:55] LABS: ANISOCYTOSIS 1+
[2017-01-18] MEDS ORDERED: HEPARIN 5,000 UNITS/ML, 1ML IV ONE (07:00)
[2017-01-18] MEDS ORDERED: HEPARIN 25,000 UNITS/500ML PMX 500 ML IV PRN ×2 (07:00)
[2017-01-18] MEDS ORDERED: HEPARIN 5,000 UNITS/ML, 1ML IV PRN (07:00)
[2017-01-18 07:05] LABS: VERIFY COUNTS? YES
[2017-01-18 07:32] VITALS: BP 147/90
[2017-01-18] MEDS: FAMOTIDINE 20 MG/2 ML IVPush SCH ×2 (08:51→21:53)
[2017-01-18] MEDS: SODIUM CHLORIDE FLUSH 10ML SYR IVF SCH ×2 (08:51→21:53)
[2017-01-18] MEDS: LISINOPRIL 5 MG TABLET PO SCH ×2 (08:52→21:54)
[2017-01-18] MEDS: RIVAROXABAN 15 MG TABLET PO SCH ×2 (12:05→18:24)
[2017-01-18] MEDS: METOPROLOL TARTRATE 25 MG TABLET PO SCH ×2 (12:07→18:30)
[2017-01-18] MEDS: AMIODARONE 200 MG TABLET PO SCH ×2 (12:12→21:54)
[2017-01-18 13:43] VITALS: BP 152/84
[2017-01-18] MEDS: NICOTINE 21 MG/24 HR PATCH.TD24 TD SCH (14:35)
[2017-01-18] MEDS ORDERED: POTASSIUM CHLORIDE 20 MEQ TAB.ER.PRT PO ONE ×2 (15:00→19:00)
[2017-01-18 18:46] VITALS: BP 136/82
[2017-01-18] MEDS ORDERED: MAGNESIUM SULFATE PMX 2GM/50ML 50 ML IV ONE (23:00)
[2017-01-19] MEDS: METOPROLOL TARTRATE 25 MG TABLET PO SCH (01:21)
[2017-01-19] MEDS: CLINDAMYCIN PMX 600MG/50ML 50 ML IV SCH ×3 (01:31→17:03)
[2017-01-19] MEDS: methylPREDNISolone SOD SUCC 40 MG/ML IVPush SCH ×3 (01:31→17:03)
[2017-01-19 03:07] VITALS: BP 138/76
[2017-01-19] MEDS: INSULIN ASPART 100 UNITS/ML, PEN SQ-INSULIN SCH ×2 (05:00→11:00)
[2017-01-19] MEDS: ASPIRIN 81 MG TABLET CHEW PO SCH (05:01)
[2017-01-19 05:52] LABS: ASPARTATE AMINO TRANSFERASE 27 U/L (15-37); BLOOD UREA NITROGEN 28 mg/dL (7-18)
[2017-01-19 05:53] LABS: HEMOGLOBIN 12.6 g/dL (11.7-16.4)
[2017-01-19 06:21] LABS: DIFF TOTAL CELLS COUNTED 100 CELL DIFF
[2017-01-19 06:28] LABS: ANISOCYTOSIS 1+; VERIFY COUNTS? YES
[2017-01-19 06:30] LABS: MICROCYTOSIS 1+
[2017-01-19 06:31] LABS: POLYCHROMASIA 1+
[2017-01-19 07:27] VITALS: BP 156/73
[2017-01-19] MEDS: SODIUM CHLORIDE FLUSH 10ML SYR IVF SCH ×2 (09:00→21:44)
[2017-01-19] MEDS: AMIODARONE 200 MG TABLET PO SCH ×2 (09:32→21:43)
[2017-01-19] MEDS: RIVAROXABAN 15 MG TABLET PO SCH ×2 (09:33→17:03)
[2017-01-19] MEDS: LISINOPRIL 5 MG TABLET PO SCH ×2 (09:34→21:43)
[2017-01-19] MEDS: FAMOTIDINE 20 MG/2 ML IVPush SCH ×2 (09:37→21:44)
[2017-01-19] MEDS: NICOTINE 21 MG/24 HR PATCH.TD24 TD SCH (13:00)
[2017-01-19 14:00] VITALS: BP 138/87
[2017-01-19] MEDS: METOPROLOL TARTRATE 50 MG TABLET PO SCH (17:05)
[2017-01-19 19:13] VITALS: BP 118/69
[2017-01-20 01:22] VITALS: BP 145/76
[2017-01-20] MEDS: methylPREDNISolone SOD SUCC 40 MG/ML IVPush SCH ×2 (01:38→08:01)
[2017-01-20] MEDS: CLINDAMYCIN PMX 600MG/50ML 50 ML IV SCH ×2 (01:38→09:03)
[2017-01-20 05:30] VITALS: BP 148/69
[2017-01-20] MEDS: ASPIRIN 81 MG TABLET CHEW PO SCH (05:31)
[2017-01-20] MEDS: METOPROLOL TARTRATE 50 MG TABLET PO SCH ×2 (05:31→18:16)
[2017-01-20 07:47] VITALS: BP 130/79
[2017-01-20] MEDS: FAMOTIDINE 20 MG/2 ML IVPush SCH (08:01)
[2017-01-20] MEDS: LISINOPRIL 5 MG TABLET PO SCH ×2 (08:01→21:32)
[2017-01-20] MEDS: AMIODARONE 200 MG TABLET PO SCH ×3 (08:02→21:32)
[2017-01-20] MEDS: RIVAROXABAN 15 MG TABLET PO SCH ×2 (08:03→18:16)
[2017-01-20] MEDS: SODIUM CHLORIDE FLUSH 10ML SYR IVF SCH ×2 (08:03→21:32)
[2017-01-20] MEDS: POTASSIUM CHLORIDE 20 MEQ TAB.ER.PRT PO SCH ×2 (09:44→17:00)
[2017-01-20] MEDS: NICOTINE 21 MG/24 HR PATCH.TD24 TD SCH (12:32)
[2017-01-20 16:07] VITALS: BP 127/72
[2017-01-20 21:00] VITALS: BP 117/67
[2017-01-21 03:35] VITALS: BP 94/64
[2017-01-21] MEDS: ASPIRIN 81 MG TABLET CHEW PO SCH (05:33)
[2017-01-21] MEDS: METOPROLOL TARTRATE 50 MG TABLET PO SCH ×2 (05:33→16:55)
[2017-01-21 06:37] LABS: BLOOD UREA NITROGEN 35 mg/dL (7-18)
[2017-01-21 06:50] VITALS: BP 108/72
[2017-01-21 07:06] LABS: DIFF TOTAL CELLS COUNTED 100 CELL DIFF; HEMOGLOBIN 13.8 g/dL (11.7-16.4)
[2017-01-21 07:07] LABS: VERIFY COUNTS? YES
[2017-01-21 07:09] LABS: ANISOCYTOSIS 1+
[2017-01-21] MEDS ORDERED: MAGNESIUM SULFATE PMX 4GM/100M 100 ML IV ONE (10:00)
[2017-01-21] MEDS: RIVAROXABAN 15 MG TABLET PO SCH ×2 (10:44→16:54)
[2017-01-21] MEDS: POTASSIUM CHLORIDE 20 MEQ TAB.ER.PRT PO SCH ×2 (10:44→16:54)
[2017-01-21] MEDS: AMIODARONE 200 MG TABLET PO SCH ×2 (10:44→22:39)
[2017-01-21] MEDS: LISINOPRIL 5 MG TABLET PO SCH ×2 (10:45→22:38)
[2017-01-21] MEDS: SODIUM CHLORIDE FLUSH 10ML SYR IVF SCH ×2 (10:45→22:39)
[2017-01-21] MEDS: NICOTINE 21 MG/24 HR PATCH.TD24 TD SCH (11:41)
[2017-01-21 13:18] VITALS: BP 122/83
[2017-01-21 18:38] VITALS: BP 117/73
[2017-01-21 22:34] VITALS: BP 93/61
[2017-01-22 01:58] VITALS: BP 105/70
[2017-01-22 06:25] LABS: HEMOGLOBIN 15.8 g/dL (11.7-16.4)
[2017-01-22 06:31] VITALS: BP 101/64
[2017-01-22] MEDS: ASPIRIN 81 MG TABLET CHEW PO SCH (06:32)
[2017-01-22] MEDS: METOPROLOL TARTRATE 50 MG TABLET PO SCH ×2 (06:32→17:50)
[2017-01-22 06:49] LABS: ASPARTATE AMINO TRANSFERASE 18 U/L (15-37); BLOOD UREA NITROGEN 34 mg/dL (7-18)
[2017-01-22 07:20] VITALS: BP 94/60
[2017-01-22 07:30] LABS: DIFF TOTAL CELLS COUNTED 100 CELL DIFF
[2017-01-22 07:45] LABS: ANISOCYTOSIS 1+; VERIFY COUNTS? YES
[2017-01-22] MEDS: POTASSIUM CHLORIDE 20 MEQ TAB.ER.PRT PO SCH ×2 (08:15→17:49)
[2017-01-22] MEDS: RIVAROXABAN 15 MG TABLET PO SCH ×2 (08:15→17:50)
[2017-01-22] MEDS: AMIODARONE 200 MG TABLET PO SCH ×2 (08:15→21:46)
[2017-01-22] MEDS: LISINOPRIL 5 MG TABLET PO SCH ×2 (08:16→21:46)
[2017-01-22] MEDS: SODIUM CHLORIDE FLUSH 10ML SYR IVF SCH ×2 (08:21→21:46)
[2017-01-22] MEDS: SODIUM CHLORIDE 0.45% 1,000 ML IV SCH (10:30)
[2017-01-22] MEDS: NICOTINE 21 MG/24 HR PATCH.TD24 TD SCH (12:55)
[2017-01-22 13:03] VITALS: BP 103/66
[2017-01-22 18:44] VITALS: BP 101/70
[2017-01-23] VITALS (7 sets, daily range): BP systolic 93–132; BP diastolic 56–69
[2017-01-23] MEDS: SODIUM CHLORIDE 0.45% 1,000 ML IV SCH (02:10)
[2017-01-23] MEDS: METOPROLOL TARTRATE 50 MG TABLET PO SCH ×2 (06:37→18:41)
[2017-01-23] MEDS: ASPIRIN 81 MG TABLET CHEW PO SCH (06:37)
[2017-01-23 06:57] LABS: BLOOD UREA NITROGEN 23 mg/dL (7-18)
[2017-01-23 07:02] LABS: HEMOGLOBIN 11.8 g/dL (11.7-16.4)
[2017-01-23] MEDS: RIVAROXABAN 15 MG TABLET PO SCH ×2 (09:02→16:51)
[2017-01-23] MEDS: LISINOPRIL 5 MG TABLET PO SCH ×2 (09:02→21:52)
[2017-01-23] MEDS: AMIODARONE 200 MG TABLET PO SCH ×2 (09:02→21:51)
[2017-01-23] MEDS: SODIUM CHLORIDE FLUSH 10ML SYR IVF SCH (09:02)
[2017-01-23] MEDS: NICOTINE 21 MG/24 HR PATCH.TD24 TD SCH (12:00)
[2017-01-24 01:12] VITALS: BP 103/65
[2017-01-24] MEDS: ASPIRIN 81 MG TABLET CHEW PO SCH (06:00)
[2017-01-24 06:19] VITALS: BP 92/56
[2017-01-24] MEDS: METOPROLOL TARTRATE 50 MG TABLET PO SCH ×2 (06:22→17:34)
[2017-01-24 06:32] VITALS: BP 92/56
[2017-01-24] MEDS: RIVAROXABAN 15 MG TABLET PO SCH ×2 (09:05→17:34)
[2017-01-24] MEDS: AMIODARONE 200 MG TABLET PO SCH ×2 (09:05→20:09)
[2017-01-24] MEDS: LISINOPRIL 5 MG TABLET PO SCH ×2 (09:06→20:09)
[2017-01-24 13:04] VITALS: BP 103/69
[2017-01-24] MEDS: NICOTINE 21 MG/24 HR PATCH.TD24 TD SCH (15:11)
[2017-01-24 17:33] VITALS: BP 102/56
[2017-01-24 18:55] VITALS: BP 105/85
[2017-01-25 01:34] VITALS: BP 94/54
[2017-01-25 05:53] LABS: HEMOGLOBIN 10.3 g/dL (11.7-16.4)
[2017-01-25] MEDS: ASPIRIN 81 MG TABLET CHEW PO SCH (06:21)
[2017-01-25 06:22] VITALS: BP_SYST 81; BP_SYST 94; BP_DIAS 53; BP_DIAS 57
[2017-01-25 06:23] LABS: BLOOD UREA NITROGEN 11 mg/dL (7-18)
[2017-01-25 06:36] VITALS: BP 93/58
[2017-01-25] MEDS: METOPROLOL TARTRATE 50 MG TABLET PO SCH ×2 (08:00→15:44)
[2017-01-25] MEDS: RIVAROXABAN 15 MG TABLET PO SCH ×2 (08:20→15:52)
[2017-01-25] MEDS: LISINOPRIL 5 MG TABLET PO SCH ×2 (08:20→20:35)
[2017-01-25] MEDS: AMIODARONE 200 MG TABLET PO SCH ×2 (08:20→20:35)
[2017-01-25] MEDS ORDERED: ACETAMINOPHEN 325 MG TABLET ONE (10:16)
[2017-01-25] MEDS: NICOTINE 21 MG/24 HR PATCH.TD24 TD SCH (15:52)
[2017-01-25 16:15] VITALS: BP 92/56
[2017-01-25 20:20] VITALS: BP 94/54
[2017-01-26 02:29] VITALS: BP 98/51
[2017-01-26 05:24] VITALS: BP 102/61
[2017-01-26] MEDS: ASPIRIN 81 MG TABLET CHEW PO SCH (06:06)
[2017-01-26 07:18] VITALS: BP 97/60
[2017-01-26] MEDS: METOPROLOL TARTRATE 50 MG TABLET PO SCH ×2 (08:00→17:21)
[2017-01-26] MEDS: LISINOPRIL 5 MG TABLET PO SCH ×2 (08:46→21:00)
[2017-01-26] MEDS: AMIODARONE 200 MG TABLET PO SCH ×2 (09:51→22:07)
[2017-01-26] MEDS: RIVAROXABAN 15 MG TABLET PO SCH ×2 (09:51→18:20)
[2017-01-26 13:31] VITALS: BP 98/57
[2017-01-26] MEDS: NICOTINE 21 MG/24 HR PATCH.TD24 TD SCH (15:41)
[2017-01-26 19:06] VITALS: BP 115/66
[2017-01-27 01:02] VITALS: BP 103/48
[2017-01-27] MEDS: ASPIRIN 81 MG TABLET CHEW PO SCH (05:41)
[2017-01-27] MEDS: METOPROLOL TARTRATE 50 MG TABLET PO SCH (05:42)
[2017-01-27 06:30] VITALS: BP 101/61
[2017-01-27] MEDS: RIVAROXABAN 15 MG TABLET PO SCH ×2 (09:25→17:46)
[2017-01-27] MEDS: AMIODARONE 200 MG TABLET PO SCH ×2 (09:25→20:27)
[2017-01-27] MEDS: LISINOPRIL 5 MG TABLET PO SCH ×2 (09:26→19:42)
[2017-01-27 12:30] VITALS: BP 91/37
[2017-01-27] MEDS: NICOTINE 21 MG/24 HR PATCH.TD24 TD SCH (15:46)
[2017-01-27 17:00] VITALS: BP 92/49
[2017-01-27 19:06] VITALS: BP 105/56
[2017-01-28 01:51] VITALS: BP 100/52
[2017-01-28] MEDS: ASPIRIN 81 MG TABLET CHEW PO SCH (05:22)
[2017-01-28 05:47] LABS: HEMOGLOBIN 10.3 g/dL (11.7-16.4)
[2017-01-28 06:14] LABS: ASPARTATE AMINO TRANSFERASE 18 U/L (15-37); BLOOD UREA NITROGEN 10 mg/dL (7-18)
[2017-01-28 07:54] VITALS: BP 103/52
[2017-01-28] MEDS: RIVAROXABAN 15 MG TABLET PO SCH ×2 (08:32→16:42)
[2017-01-28] MEDS: LISINOPRIL 5 MG TABLET PO SCH ×2 (08:32→21:37)
[2017-01-28] MEDS: AMIODARONE 200 MG TABLET PO SCH ×2 (08:32→21:37)
[2017-01-28] MEDS: HYDROCORTISONE OINT 2.5%, 20GM TP PRN ×2 (11:44→21:37)
[2017-01-28 12:00] VITALS: BP 107/61
[2017-01-28] MEDS: NICOTINE 21 MG/24 HR PATCH.TD24 TD SCH (16:42)
[2017-01-28 18:49] VITALS: BP 117/68
[2017-01-28 19:12] VITALS: BP 115/74
[2017-01-29 01:17] VITALS: BP 95/54
[2017-01-29] MEDS: ASPIRIN 81 MG TABLET CHEW PO SCH (05:26)
[2017-01-29 06:55] VITALS: BP 95/59
[2017-01-29] MEDS: HYDROCORTISONE OINT 2.5%, 20GM TP PRN (08:39)
[2017-01-29] MEDS: LISINOPRIL 5 MG TABLET PO SCH (08:39)
[2017-01-29] MEDS: RIVAROXABAN 15 MG TABLET PO SCH ×2 (08:39→15:25)
[2017-01-29] MEDS: AMIODARONE 200 MG TABLET PO SCH (08:41)
[2017-01-29 12:46] VITALS: BP 102/59
[2017-01-29] MEDS ORDERED: ASPI-515 PO (13:39)
[2017-01-29] MEDS ORDERED: METH10TA6 PO (13:39)
[2017-01-29] MEDS ORDERED: LISI5TAB7 PO (13:39)
[2017-01-29] MEDS ORDERED: DOCU-30 PO (13:39)
[2017-01-29] MEDS ORDERED: HYDR453.4 TP (13:39)
[2017-01-29] MEDS ORDERED: AMIO200T42 PO (13:39)
[2017-01-29] MEDS ORDERED: NICO1PAT5 TD (13:39)
[2017-01-29] MEDS ORDERED: RIVA15TA PO (13:39)
[2017-01-29] MEDS: NICOTINE 21 MG/24 HR PATCH.TD24 TD SCH (15:25)
== END 2017-01-29 16:10 | disposition home or self-care (01) | DRG 870 ==
LOC: ED 10:55 → EDIP 11:02 → 5SO 12:55 → CCU 23:51 → 5SO 01-12 21:22 → 3NE 01-26 19:00
PROVIDERS: ADMIT Hospitalist; ATTEND Family Medicine
PROC: 0T9B70Z Drainage of Bladder with Drainage Device, Via Natural or Artificial Opening (ICD-10-PCS; 2017-01-01)
PROC: 5A1955Z Respiratory Ventilation, Greater than 96 Consecutive Hours (ICD-10-PCS; principal; 2017-01-02)
PROC: 02HV33Z Insertion of Infusion Device into Superior Vena Cava, Percutaneous Approach (ICD-10-PCS; 2017-01-02)
PROC: B548ZZA Ultrasonography of Superior Vena Cava, Guidance (ICD-10-PCS; 2017-01-02)
PROC: 5A12012 Performance of Cardiac Output, Single, Manual (ICD-10-PCS; 2017-01-02)
PROC: 0BH17EZ Insertion of Endotracheal Airway into Trachea, Via Natural or Artificial Opening (ICD-10-PCS; 2017-01-02)
PROC: 5A1955Z Respiratory Ventilation, Greater than 96 Consecutive Hours (ICD-10-PCS; 2017-01-05)
PROC: 0BH17EZ Insertion of Endotracheal Airway into Trachea, Via Natural or Artificial Opening (ICD-10-PCS; 2017-01-05)
PROC: 02H63JZ Insertion of Pacemaker Lead into Right Atrium, Percutaneous Approach (ICD-10-PCS; 2017-01-17)
PROC: 0JH606Z Insertion of Pacemaker, Dual Chamber into Chest Subcutaneous Tissue and Fascia, Open Approach (ICD-10-PCS; 2017-01-17)
PROC: 02HK3JZ Insertion of Pacemaker Lead into Right Ventricle, Percutaneous Approach (ICD-10-PCS; 2017-01-17)
DX: A41.9 Sepsis, unspecified organism (principal); J96.00 Acute respiratory failure, unspecified whether with hypoxia or hypercapnia; J18.9 Pneumonia, unspecified organism; E43 Unspecified severe protein-calorie malnutrition; K72.00 Acute and subacute hepatic failure without coma; I46.9 Cardiac arrest, cause unspecified; I82.621 Acute embolism and thrombosis of deep veins of right upper extremity; I50.20 Unspecified systolic (congestive) heart failure; E87.0 Hyperosmolality and hypernatremia; R57.9 Shock, unspecified; I42.9 Cardiomyopathy, unspecified; Z99.11 Dependence on respirator [ventilator] status; Z68.1 Body mass index [BMI] 19.9 or less, adult; N17.9 Acute kidney failure, unspecified; I48.1 Persistent atrial fibrillation; E87.6 Hypokalemia; E05.00 Thyrotoxicosis with diffuse goiter without thyrotoxic crisis or storm; E83.42 Hypomagnesemia; E87.5 Hyperkalemia; F17.210 Nicotine dependence, cigarettes, uncomplicated; I11.0 Hypertensive heart disease with heart failure; D64.9 Anemia, unspecified; F14.10 Cocaine abuse, uncomplicated; J44.9 Chronic obstructive pulmonary disease, unspecified; I49.5 Sick sinus syndrome; K80.20 Calculus of gallbladder without cholecystitis without obstruction; R13.10 Dysphagia, unspecified; Z87.440 Personal history of urinary (tract) infections; Z98.890 Other specified postprocedural states; Z88.0 Allergy status to penicillin; Z79.01 Long term (current) use of anticoagulants; Z79.899 Other long term (current) drug therapy
CPT/HCPCS: 33208; 36415; 36600; 70450; 71010; 71275; 74000; 74230; 76536; 76700; 80048; 80053; 80061; 80202; 80307; 81001; 82533; 82803; 82962; 83605; 83735; 83880; 84100; 84132; 84145; 84436; 84439; 84443; 84478; 84481; 84484; 85025; 85520; 85610; 85730; 87040; 87070; 87081; 87086; 87205; 87324; 87400; 92950; 93005; 93306; 93970; 94002; 94003; 94150; 94640; 96361; 96365; 96366; 96375; 96376; C1779; C1785; C1892; J0461; J0610; J0690; J0696; J1265; J1644; J1650; J1815; J1940; J1956; J2185; J2250; J2704; J3010; J3370; J3480; J3490; J7060; J7070; J7620; P9047; Q9967; J0171; J0282; J0330; J0360; J1160; J1200; J1610; J2060; J2920; J2930; J3475; J7030; J7040; J7050; J7512; S0028

== ENCOUNTER 2017-02-03 09:32 | Emergency (ER) | payer MEDICAID ==
[~2017-02-03] VITALS: Ht 162.6 cm; Wt 48.0 kg
[~2017-02-03 09:32] MED LIST: AMIO200T42 PO; ASPI-515 PO; DOCU-30 PO; HYDR453.4 TP; LEVO25TA2 PO; LISI5TAB7 PO; METH10TA6 PO; NICO1PAT5 TD; NITR100C PO; PROP50TA3 PO; RIVA15TA PO
[2017-02-03 09:35] VITALS: BP 122/86
== END 2017-02-03 11:57 | disposition home or self-care (01) ==
LOC: ED 11:51
DX: L03.114 Cellulitis of left upper limb (principal); I80.8 Phlebitis and thrombophlebitis of other sites; I10 Essential (primary) hypertension; E03.9 Hypothyroidism, unspecified; Z88.0 Allergy status to penicillin
CPT/HCPCS: 93005; 99284

== ENCOUNTER 2017-07-11 11:36 | Inpatient (IN) | payer MEDICAID ==
[~2017-07-11] VITALS: Ht 162.6 cm; Wt 50.6 kg
[~2017-07-11 11:36] MED LIST changes: +DOCU-131 PO; -DOCU-30 PO; +NICO1PAT16 TD; -NICO1PAT5 TD
[2017-07-11] MEDS ORDERED: ASPIRIN 81 MG TABLET CHEW ONE (12:22)
[2017-07-11] MEDS ORDERED: SODIUM CHLORIDE FLUSH 10ML SYR IVF ONE (12:30)
[2017-07-11] MEDS ORDERED: ASPIRIN 81 MG TABLET CHEW PO ONE (12:30)
[2017-07-11] MEDS ORDERED: SODIUM CHLORIDE 0.9% 1,000ML IVBOLUS ONE (12:30)
[2017-07-11 12:38] LABS: ASPARTATE AMINO TRANSFERASE 16 U/L (15-37); BLOOD UREA NITROGEN 12 mg/dL (7-18)
[2017-07-11 12:44] LABS: IS PT STATUS REG ER OR PRE ER? YES
[2017-07-11 12:54] LABS: HEMATOCRIT 36.2 % (34.6-47.8); HEMOGLOBIN 11.7 g/dL (11.7-16.4)
[2017-07-11] MEDS ORDERED: CEFTRIAXONE PMX 1GM/50ML 50 ML IVPB ONE (15:00)
[2017-07-11] MEDS ORDERED: OMNIPAQUE 350 MG/ML, 100ML BOTTLE ONE (15:56)
[2017-07-11] MEDS ORDERED: ONDANSETRON ODT 4 MG PO PRN (16:00)
[2017-07-11] MEDS ORDERED: ONDANSETRON 2MG/ML, 2ML IVPush PRN (16:00)
[2017-07-11] MEDS ORDERED: FUROSEMIDE 20 MG/2 ML IV ONE (16:00)
[2017-07-11 16:18] LABS: ACETAMINOPHEN < 2 mcg/mL (10-30)
[2017-07-11] MEDS ORDERED: CEFTRIAXONE PMX 1GM/50ML 50 ML ONE (16:56)
[2017-07-11 18:37] VITALS: BP 152/87
[2017-07-11 19:17] VITALS: BP 153/91
[2017-07-11] MEDS ORDERED: LORazepam 2 MG/ML, 1ML ONE (21:23)
[2017-07-11] MEDS ORDERED: LORazepam 2 MG/ML, 1ML IVPush ONE (21:30)
[2017-07-11 21:56] LABS: ABG COLLECTION SITE LEFT RADIAL; COLLATERAL CIRCULATION TESTING NORMAL
[2017-07-11] MEDS ORDERED: PIPERACILLIN/TAZO/PMX 3.375GM 50 ML IV SCH (22:00)
[2017-07-11 22:19] LABS: DAU SCREEN DISCLAIMER
[2017-07-11] MEDS ORDERED: CEFTRIAXONE PMX 1GM/50ML 50 ML IV SCH (22:30)
[2017-07-11] MEDS ORDERED: MAGNESIUM SULFATE PMX 2GM/50ML 50 ML IV ONE (22:30)
[2017-07-11] MEDS: NICOTINE 7 MG/24 HR PATCH.TD24 TD SCH (22:37)
[2017-07-11] MEDS: RIVAROXABAN 15 MG TABLET PO SCH (22:37)
[2017-07-11] MEDS: AMIODARONE 200 MG TABLET PO SCH (22:38)
[2017-07-11] MEDS: PROPYLTHIOURACIL 50 MG TABLET PO SCH (22:38)
[2017-07-11] MEDS ORDERED: DILTIAZEM 5 MG/ML, 5ML IVPush ONE (23:00)
[2017-07-11 23:19] LABS: HEMATOCRIT 38.4 % (34.6-47.8); HEMOGLOBIN 12.4 g/dL (11.7-16.4); WHITE BLOOD COUNT 14.1 x10^3/uL (3.4-10)
[2017-07-11 23:28] LABS: BLOOD UREA NITROGEN 10 mg/dL (7-18)
[2017-07-11 23:30] LABS: ASPARTATE AMINO TRANSFERASE 18 U/L (15-37)
[2017-07-12] MEDS ORDERED: DILTIAZEM 5 MG/ML, 5ML IVPush ONE (00:30)
[2017-07-12 00:34] LABS: IS PT STATUS REG ER OR PRE ER? NO
[2017-07-12 02:00] VITALS: BP 109/64
[2017-07-12] MEDS ORDERED: ALBUTEROL SULFATE 2.5 MG/3 ML NPPB PRN (03:00)
[2017-07-12 05:54] LABS: HEMATOCRIT 37.2 % (34.6-47.8); WHITE BLOOD COUNT 13.3 x10^3/uL (3.4-10)
[2017-07-12 06:15] LABS: ASPARTATE AMINO TRANSFERASE 17 U/L (15-37); BLOOD UREA NITROGEN 10 mg/dL (7-18)
[2017-07-12 06:54] VITALS: BP 113/66
[2017-07-12] MEDS: LORazepam 2 MG/ML, 1ML IVPush PRN ×2 (07:59→21:02)
[2017-07-12] MEDS: PROPYLTHIOURACIL 50 MG TABLET PO SCH ×2 (11:37→21:00)
[2017-07-12] MEDS: AMIODARONE 200 MG TABLET PO SCH ×2 (11:37→21:01)
[2017-07-12] MEDS: RIVAROXABAN 15 MG TABLET PO SCH ×2 (11:38→21:01)
[2017-07-12] MEDS: LISINOPRIL 5 MG TABLET PO SCH (11:38)
[2017-07-12] MEDS ORDERED: POTASSIUM CHLORIDE 20 MEQ TAB.ER.PRT PO ONE (15:30)
[2017-07-12 15:39] VITALS: BP_SYST 105; BP_SYST 106; BP_DIAS 61; BP_DIAS 66
[2017-07-12] MEDS: CEFTRIAXONE PMX 1GM/50ML 50 ML IV SCH (15:43)
[2017-07-12] MEDS: METRONIDAZOLE PMX 500MG/100ML 100 ML IV SCH (16:44)
[2017-07-12] MEDS: NICOTINE 7 MG/24 HR PATCH.TD24 TD SCH (16:46)
[2017-07-12 19:46] VITALS: BP 106/65
[2017-07-13] MEDS: METRONIDAZOLE PMX 500MG/100ML 100 ML IV SCH ×3 (00:44→17:55)
[2017-07-13 00:53] VITALS: BP 105/71
[2017-07-13 05:37] LABS: BLOOD UREA NITROGEN 15 mg/dL (7-18)
[2017-07-13 05:40] LABS: HEMATOCRIT 33.6 % (34.6-47.8); HEMOGLOBIN 10.9 g/dL (11.7-16.4); WHITE BLOOD COUNT 6.3 x10^3/uL (3.4-10)
[2017-07-13 05:41] LABS: ASPARTATE AMINO TRANSFERASE 13 U/L (15-37)
[2017-07-13 07:50] VITALS: BP 113/63
[2017-07-13] MEDS: RIVAROXABAN 15 MG TABLET PO SCH ×2 (08:38→17:55)
[2017-07-13] MEDS: LISINOPRIL 5 MG TABLET PO SCH (08:38)
[2017-07-13] MEDS: AMIODARONE 200 MG TABLET PO SCH ×2 (08:38→21:31)
[2017-07-13] MEDS: PROPYLTHIOURACIL 50 MG TABLET PO SCH ×2 (08:38→21:31)
[2017-07-13 08:50] VITALS: BP_SYST 118; BP_SYST 126; BP_SYST 136; BP_DIAS 78; BP_DIAS 79; BP_DIAS 92
[2017-07-13 13:10] VITALS: BP_SYST 102; BP_SYST 104; BP_DIAS 64; BP_DIAS 68; BP_DIAS 78
[2017-07-13] MEDS ORDERED: POTASSIUM CHLORIDE 20 MEQ TAB.ER.PRT PO ONE (15:00)
[2017-07-13] MEDS: NICOTINE 7 MG/24 HR PATCH.TD24 TD SCH (15:47)
[2017-07-13] MEDS: CEFTRIAXONE PMX 1GM/50ML 50 ML IV SCH (15:47)
[2017-07-13] MEDS: POTASSIUM CHLORIDE 20 MEQ TAB.ER.PRT PO SCH (17:55)
[2017-07-13 19:00] VITALS: BP 119/72
[2017-07-14] VITALS (7 sets, daily range): BP systolic 107–134; BP diastolic 60–86
[2017-07-14] MEDS: METRONIDAZOLE PMX 500MG/100ML 100 ML IV SCH ×3 (00:36→17:27)
[2017-07-14] MEDS: POTASSIUM CHLORIDE 20 MEQ TAB.ER.PRT PO SCH ×2 (08:00→16:25)
[2017-07-14] MEDS: RIVAROXABAN 15 MG TABLET PO SCH ×2 (08:28→16:25)
[2017-07-14] MEDS: PROPYLTHIOURACIL 50 MG TABLET PO SCH ×2 (08:28→20:44)
[2017-07-14] MEDS: LISINOPRIL 5 MG TABLET PO SCH (08:28)
[2017-07-14] MEDS: AMIODARONE 200 MG TABLET PO SCH ×2 (08:28→20:44)
[2017-07-14 13:31] LABS: BLOOD UREA NITROGEN 15 mg/dL (7-18)
[2017-07-14] MEDS: CEFTRIAXONE PMX 1GM/50ML 50 ML IV SCH (14:58)
[2017-07-14] MEDS ORDERED: MAGNESIUM SULFATE PMX 2GM/50ML 50 ML IV ONE (15:00)
[2017-07-14] MEDS: NICOTINE 7 MG/24 HR PATCH.TD24 TD SCH (16:00)
[2017-07-15] MEDS: METRONIDAZOLE PMX 500MG/100ML 100 ML IV SCH ×2 (00:34→08:06)
[2017-07-15 01:00] VITALS: BP 117/74
[2017-07-15 06:02] LABS: HEMATOCRIT 36.2 % (34.6-47.8); HEMOGLOBIN 11.8 g/dL (11.7-16.4); WHITE BLOOD COUNT 6.4 x10^3/uL (3.4-10)
[2017-07-15 06:06] LABS: BLOOD UREA NITROGEN 14 mg/dL (7-18)
[2017-07-15] MEDS: RIVAROXABAN 15 MG TABLET PO SCH (08:05)
[2017-07-15] MEDS: AMIODARONE 200 MG TABLET PO SCH (08:06)
[2017-07-15] MEDS: PROPYLTHIOURACIL 50 MG TABLET PO SCH (08:06)
[2017-07-15] MEDS: LISINOPRIL 5 MG TABLET PO SCH (08:06)
[2017-07-15 08:23] VITALS: BP_SYST 117; BP_SYST 121; BP_SYST 126; BP_DIAS 69; BP_DIAS 75; BP_DIAS 76
[2017-07-15] MEDS ORDERED: METH10TA6 PO (08:41)
[2017-07-15] MEDS ORDERED: AMIO200T42 PO (08:41)
[2017-07-15] MEDS ORDERED: CEFD300C37 PO (08:41)
[2017-07-15] MEDS ORDERED: RIVA20TA PO (08:41)
[2017-07-15] MEDS ORDERED: METR500T PO (08:41)
[2017-07-15] MEDS ORDERED: PROP50TA3 PO (08:41)
[2017-07-15] MEDS ORDERED: LISI5TAB7 PO (08:41)
[2017-07-15] MEDS ORDERED: metroNIDAZOLE 500 MG TABLET PO SCH (09:00)
[2017-07-15] MEDS ORDERED: CEFDINIR 300 MG CAPSULE PO SCH (09:00)
== END 2017-07-15 10:20 | disposition home or self-care (01) | DRG 177 ==
LOC: ED 12:53 → EDIP 14:33 → 4WST 17:05 → DCLOUNGE 07-15 10:07
PROVIDERS: ADMIT Hospitalist; ATTEND Hospitalist
DX: J69.0 Pneumonitis due to inhalation of food and vomit (principal); I50.33 Acute on chronic diastolic (congestive) heart failure; J96.10 Chronic respiratory failure, unspecified whether with hypoxia or hypercapnia; E44.0 Moderate protein-calorie malnutrition; I42.9 Cardiomyopathy, unspecified; D68.59 Other primary thrombophilia; J44.0 Chronic obstructive pulmonary disease with (acute) lower respiratory infection; I48.2 Chronic atrial fibrillation; Z68.1 Body mass index [BMI] 19.9 or less, adult; R17 Unspecified jaundice; D63.8 Anemia in other chronic diseases classified elsewhere; J15.9 Unspecified bacterial pneumonia; I11.0 Hypertensive heart disease with heart failure; I27.2 Other secondary pulmonary hypertension; E83.42 Hypomagnesemia; E86.0 Dehydration; E05.00 Thyrotoxicosis with diffuse goiter without thyrotoxic crisis or storm; Z88.0 Allergy status to penicillin; Z88.8 Allergy status to other drugs, medicaments and biological substances; F14.10 Cocaine abuse, uncomplicated; F17.210 Nicotine dependence, cigarettes, uncomplicated; Z79.82 Long term (current) use of aspirin; Z86.711 Personal history of pulmonary embolism; Z86.718 Personal history of other venous thrombosis and embolism; Z91.14 Patient's other noncompliance with medication regimen; Z99.81 Dependence on supplemental oxygen; Z95.0 Presence of cardiac pacemaker; R42 Dizziness and giddiness
CPT/HCPCS: 36415; 36600; 70450; 71010; 71020; 71275; 80048; 80053; 80307; 82803; 82962; 83605; 83735; 84145; 84439; 84443; 84481; 84484; 85025; 85379; 85610; 85730; 87040; 87324; 89055; 93005; 93306; 96365; 96366; J0696; J2405; Q9967; J1940; J2060; J3475; J7030

== ENCOUNTER 2017-12-02 09:27 | Emergency (ER) | payer MEDICAID ==
[~2017-12-02] VITALS: Ht 162.6 cm; Wt 50.0 kg
[~2017-12-02 09:27] MED LIST changes: +CEFD300C37 PO; +METR500T PO; +NICO-487 TD; -NICO1PAT16 TD; +RIVA20TA PO
[2017-12-02] MEDS ORDERED: CARV6.252 PO (10:51)
[2017-12-02 11:01] VITALS: BP 125/73
== END 2017-12-02 11:04 | disposition home or self-care (01) ==
LOC: ED 10:26
DX: S99.911A Unspecified injury of right ankle, initial encounter (principal); J44.0 Chronic obstructive pulmonary disease with (acute) lower respiratory infection; J18.9 Pneumonia, unspecified organism; I10 Essential (primary) hypertension; Z87.891 Personal history of nicotine dependence; Z88.0 Allergy status to penicillin; Z95.0 Presence of cardiac pacemaker
CPT/HCPCS: 71046; 99284

== ENCOUNTER 2017-12-11 21:57 | Inpatient (IN) | payer MEDICAID ==
[~2017-12-11] VITALS: Ht 162.6 cm; Wt 57.3 kg
[~2017-12-11 21:57] MED LIST changes: +CARV6.252 PO; +DILT30TA27 PO
[2017-12-11] MEDS ORDERED: HYDROmorphone 2 MG/ML, 1ML ONE (22:19)
[2017-12-11] MEDS ORDERED: LORazepam 2 MG/ML, 1ML ONE (22:20)
[2017-12-11] MEDS ORDERED: DILTIAZEM 5 MG/ML, 5ML IVPush STA (22:24)
[2017-12-11] MEDS ORDERED: DILTIAZEM 5 MG/ML, 5ML ONE (22:29)
[2017-12-11] MEDS ORDERED: HYDROmorphone 1 MG/ML, 1ML IV ONE (22:30)
[2017-12-11] MEDS ORDERED: LORazepam 2 MG/ML, 1ML IVPush ONE (22:30)
[2017-12-11 22:43] LABS: MEAN CORPUSCULAR HEMOGLOBIN 27.8 pg (27.0-34.8); MEAN CORPUSCULAR VOLUME 86.9 fL (80-100); MEAN PLATELET VOLUME 8.6 fL (7.4-10.4); PLATELET COUNT 280 x10^3/uL (130-400); RED BLOOD COUNT 4.28 x10^6/uL (3.82-5.3); RED CELL DISTRIBUTION WIDTH 15.1 % (9.6-15.2)
[2017-12-11 22:44] LABS: INTERNATIONAL NORMALIZED RATIO 2.11 (0.93-1.1); PROTHROMBIN TIME 21.4 Seconds (9.6-11.5)
[2017-12-11 22:47] LABS: ANION GAP 13 mmol/L (5-15); CALCIUM 8.5 mg/dL (8.5-10.1); CHLORIDE 102 mmol/L (98-107)
[2017-12-11 22:53] LABS: ALANINE AMINOTRANSFERASE 15 U/L (12-78); ALKALINE PHOSPHATASE 159 U/L (45-117); BILIRUBIN,TOTAL 3.4 mg/dL (0.2-1.0); CREATININE 0.38 mg/dL (0.55-1.02); TOTAL PROTEIN 7.9 g/dL (6.4-8.2); TROPONIN I < 0.015 ng/mL (0.000-0.045)
[2017-12-11 22:55] LABS: MD YES
[2017-12-11 22:58] LABS: EOS#(MANUAL) 0.21 x10^3/uL (0.0-0.4); EOS% (MANUAL) 1 % (1-7); LYMPH#(MANUAL) 3.28 x10^3/uL (1-3.4); LYMPHS% (MANUAL) 16 % (22-44); MONOS#(MANUAL) 1.03 x10^3/uL (0.3-2.7); MONOS% (MANUAL) 5 % (2-9); NRBC % (MANUAL) 1 % (0-1); POLYCHROMASIA 1+; SEG#(MANUAL) 15.99 x10^3/uL (1.8-6.8); SEGS% (MANUAL) 78 % (42-75)
[2017-12-11 22:59] LABS: ANISOCYTOSIS 1+
[2017-12-11 23:00] LABS: <PLATELET ESTIMATE> ADEQUATE; <PLT MORPHOLOGY> NORMAL PLT MORPH; PMNS WITH VACUOLES 1+
[2017-12-11] MEDS ORDERED: CEFTRIAXONE PMX 1GM/50ML 50 ML IVPB ONE (23:30)
[2017-12-11] MEDS ORDERED: CEFTRIAXONE PMX 1GM/50ML 50 ML ONE (23:51)
[2017-12-12] MEDS ORDERED: LABETALOL 5MG/ML, 20ML IVPush PRN
[2017-12-12] MEDS ORDERED: DOCUSATE 100 MG CAPSULE PO PRN
[2017-12-12] MEDS ORDERED: ACETAMINOPHEN 325 MG TABLET PO PRN
[2017-12-12] MEDS ORDERED: ONDANSETRON ODT 4 MG PO PRN
[2017-12-12] MEDS ORDERED: LORazepam 2 MG/ML, 1ML IVPush PRN (00:30)
[2017-12-12 00:51] VITALS: BP 113/71
[2017-12-12] MEDS ORDERED: DILTIAZEM 5 MG/ML, 5ML IVPush PRN (01:00)
[2017-12-12 03:13] VITALS: BP 114/72
[2017-12-12] MEDS: DILTIAZEM 30 MG TABLET PO SCH ×4 (06:13→17:34)
[2017-12-12 07:48] VITALS: BP 122/69
[2017-12-12] MEDS: PROPYLTHIOURACIL 50 MG TABLET PO SCH ×2 (07:53→20:40)
[2017-12-12] MEDS: RIVAROXABAN 20 MG TABLET PO SCH (07:54)
[2017-12-12] MEDS: LISINOPRIL 5 MG TABLET PO SCH (07:54)
[2017-12-12 12:22] VITALS: BP 119/70
[2017-12-12] MEDS ORDERED: FUROSEMIDE 20 MG/2 ML IV ONE (13:00)
[2017-12-12] MEDS: FUROSEMIDE 20 MG/2 ML IV SCH (16:05)
[2017-12-12] MEDS ORDERED: GUAIFENESIN 100 MG/5 ML, 5ML UDC ONE (16:50)
[2017-12-12] MEDS ORDERED: CEFTRIAXONE 1,000 MG IM SCH (17:00)
[2017-12-12] MEDS: CEFTRIAXONE PMX 1GM/50ML 50 ML IV SCH (17:34)
[2017-12-12] MEDS: GUAIFENESIN 200 MG TABLET PO SCH (17:34)
[2017-12-12 18:23] VITALS: BP 152/88
[2017-12-13] VITALS (7 sets, daily range): BP systolic 97–134; BP diastolic 59–82
[2017-12-13] MEDS: DILTIAZEM 30 MG TABLET PO SCH ×5 (00:19→17:24)
[2017-12-13] MEDS: BENZONATATE 100 MG CAPSULE PO PRN (00:20)
[2017-12-13] MEDS ORDERED: BENZONATATE 100 MG CAPSULE PO SCH (00:30)
[2017-12-13 05:21] LABS: CHLORIDE 107 mmol/L (98-107)
[2017-12-13 05:23] LABS: BASOPHILS # (AUTO) 0.09 x10^3/uL (0-0.1); BASOPHILS % (AUTO) 1 % (0-1); EOSINOPHILS % (AUTO) 3 % (1-7); LYMPHOCYTES # (AUTO) 2.07 x10^3/uL (1-3.4); LYMPHOCYTES % (AUTO) 19 % (22-44); MD NO; MEAN CORPUSCULAR HEMOGLOBIN 27.6 pg (27.0-34.8); MEAN CORPUSCULAR HGB CONC 31.4 g/dL (32.4-35.8); MEAN CORPUSCULAR VOLUME 87.8 fL (80-100); MEAN PLATELET VOLUME 8.8 fL (7.4-10.4); MONOCYTES # (AUTO) 1.24 x10^3/uL (0.2-0.8); MONOCYTES % (AUTO) 11 % (2-9); NEUTROPHILS # (AUTO) 7.12 x10^3/uL (1.8-6.8); NEUTROPHILS % (AUTO) 66 % (42-75); PLATELET COUNT 227 x10^3/uL (130-400); RED BLOOD COUNT 3.55 x10^6/uL (3.82-5.3); RED CELL DISTRIBUTION WIDTH 15.6 % (9.6-15.2)
[2017-12-13 05:41] LABS: ALANINE AMINOTRANSFERASE 12 U/L (12-78); ALBUMIN 2.3 g/dL (3.4-5.0); ALKALINE PHOSPHATASE 124 U/L (45-117); ANION GAP 8 mmol/L (5-15); BILIRUBIN,TOTAL 1.7 mg/dL (0.2-1.0); CALCIUM 7.8 mg/dL (8.5-10.1); CREATININE 0.36 mg/dL (0.55-1.02); TOTAL PROTEIN 6.5 g/dL (6.4-8.2)
[2017-12-13] MEDS: GUAIFENESIN 200 MG TABLET PO SCH ×4 (06:05→21:56)
[2017-12-13] MEDS: LISINOPRIL 5 MG TABLET PO SCH (07:58)
[2017-12-13] MEDS ORDERED: MAGNESIUM SULFATE PMX 4GM/100M 100 ML IV ONE (08:00)
[2017-12-13] MEDS: RIVAROXABAN 20 MG TABLET PO SCH (08:23)
[2017-12-13] MEDS: FUROSEMIDE 20 MG/2 ML IV SCH ×2 (08:23→17:24)
[2017-12-13] MEDS: PROPYLTHIOURACIL 50 MG TABLET PO SCH ×2 (08:23→21:56)
[2017-12-13] MEDS: CEFTRIAXONE PMX 1GM/50ML 50 ML IV SCH (17:24)
[2017-12-14] VITALS (7 sets, daily range): BP systolic 100–116; BP diastolic 60–76
[2017-12-14] MEDS: DILTIAZEM 30 MG TABLET PO SCH ×5 (00:47→23:57)
[2017-12-14] MEDS: BENZONATATE 100 MG CAPSULE PO PRN (04:03)
[2017-12-14 05:14] LABS: ALANINE AMINOTRANSFERASE 13 U/L (12-78); ALBUMIN 2.5 g/dL (3.4-5.0); ANION GAP 6 mmol/L (5-15); CALCIUM 8.4 mg/dL (8.5-10.1); CHLORIDE 104 mmol/L (98-107)
[2017-12-14 05:16] LABS: ALKALINE PHOSPHATASE 144 U/L (45-117); BILIRUBIN,TOTAL 1.7 mg/dL (0.2-1.0); CREATININE 0.44 mg/dL (0.55-1.02); TOTAL PROTEIN 7.5 g/dL (6.4-8.2)
[2017-12-14 05:19] LABS: BASOPHILS # (AUTO) 0.02 x10^3/uL (0-0.1); BASOPHILS % (AUTO) 0 % (0-1); EOSINOPHILS # (AUTO) 0.59 x10^3/uL (0-0.4); EOSINOPHILS % (AUTO) 7 % (1-7); LYMPHOCYTES # (AUTO) 3.09 x10^3/uL (1-3.4); LYMPHOCYTES % (AUTO) 34 % (22-44); MD NO; MEAN CORPUSCULAR HEMOGLOBIN 28.2 pg (27.0-34.8); MEAN CORPUSCULAR HGB CONC 32.6 g/dL (32.4-35.8); MEAN CORPUSCULAR VOLUME 86.4 fL (80-100); MEAN PLATELET VOLUME 8.4 fL (7.4-10.4); MONOCYTES # (AUTO) 1.01 x10^3/uL (0.2-0.8); MONOCYTES % (AUTO) 11 % (2-9); NEUTROPHILS # (AUTO) 4.32 x10^3/uL (1.8-6.8); NEUTROPHILS % (AUTO) 48 % (42-75); PLATELET COUNT 257 x10^3/uL (130-400); RED CELL DISTRIBUTION WIDTH 15.1 % (9.6-15.2)
[2017-12-14] MEDS: GUAIFENESIN 200 MG TABLET PO SCH ×4 (06:13→20:03)
[2017-12-14] MEDS: PROPYLTHIOURACIL 50 MG TABLET PO SCH ×2 (09:55→20:03)
[2017-12-14] MEDS: FUROSEMIDE 20 MG/2 ML IV SCH ×2 (09:55→17:14)
[2017-12-14] MEDS: RIVAROXABAN 20 MG TABLET PO SCH (09:56)
[2017-12-14] MEDS: LISINOPRIL 5 MG TABLET PO SCH (09:56)
[2017-12-14] MEDS ORDERED: FENTANYL PF 100 MCG/2ML ONE (11:26)
[2017-12-14] MEDS ORDERED: MIDAZOLAM 1 MG/ML, 2ML ONE (11:26)
[2017-12-14] MEDS: CEFTRIAXONE PMX 1GM/50ML 50 ML IV SCH (17:14)
[2017-12-14 19:13] LABS: THYROID STIMULATING HORMONE < 0.005 mIU/L (0.358-3.740)
[2017-12-14 19:14] LABS: FREE T4 (FREE THYROXINE) > 8.00 ng/dL (0.76-1.46)
[2017-12-14] MEDS: TEMAZEPAM 15 MG CAPSULE PO PRN (23:57)
[2017-12-15 06:39] VITALS: BP 104/58
[2017-12-15] MEDS: GUAIFENESIN 200 MG TABLET PO SCH ×4 (06:40→20:23)
[2017-12-15 07:32] VITALS: BP 104/70
[2017-12-15] MEDS: DILTIAZEM CD 180 MG CAP.ER.24H PO SCH (09:13)
[2017-12-15] MEDS: FUROSEMIDE 20 MG/2 ML IV SCH ×2 (09:13→16:50)
[2017-12-15] MEDS: LISINOPRIL 5 MG TABLET PO SCH (09:14)
[2017-12-15] MEDS: PROPYLTHIOURACIL 50 MG TABLET PO SCH ×3 (09:14→20:23)
[2017-12-15] MEDS: RIVAROXABAN 20 MG TABLET PO SCH (09:23)
[2017-12-15 13:52] VITALS: BP 117/64
[2017-12-15] MEDS: CEFTRIAXONE PMX 1GM/50ML 50 ML IV SCH (16:50)
[2017-12-15 19:05] VITALS: BP 112/63
[2017-12-15] MEDS: TEMAZEPAM 15 MG CAPSULE PO PRN (20:23)
[2017-12-16 03:04] VITALS: BP 112/70
[2017-12-16 05:08] LABS: ALBUMIN 2.6 g/dL (3.4-5.0); ANION GAP 6 mmol/L (5-15); CALCIUM 8.6 mg/dL (8.5-10.1); CHLORIDE 102 mmol/L (98-107)
[2017-12-16 05:12] LABS: ALANINE AMINOTRANSFERASE 19 U/L (12-78); ALKALINE PHOSPHATASE 144 U/L (45-117); BILIRUBIN,TOTAL 0.9 mg/dL (0.2-1.0); CREATININE 0.45 mg/dL (0.55-1.02); TOTAL PROTEIN 7.7 g/dL (6.4-8.2)
[2017-12-16 05:25] LABS: MEAN CORPUSCULAR HEMOGLOBIN 27.9 pg (27.0-34.8); MEAN CORPUSCULAR HGB CONC 32.3 g/dL (32.4-35.8); MEAN CORPUSCULAR VOLUME 86.5 fL (80-100); MEAN PLATELET VOLUME 8.2 fL (7.4-10.4); PLATELET COUNT 298 x10^3/uL (130-400); RED BLOOD COUNT 4.21 x10^6/uL (3.82-5.3); RED CELL DISTRIBUTION WIDTH 15.2 % (9.6-15.2)
[2017-12-16] MEDS: GUAIFENESIN 200 MG TABLET PO SCH ×2 (05:52→11:29)
[2017-12-16 06:01] LABS: BASOPHILS # (AUTO) 0.06 x10^3/uL (0-0.1); BASOPHILS % (AUTO) 1 % (0-1); EOSINOPHILS # (AUTO) 0.46 x10^3/uL (0-0.4); EOSINOPHILS % (AUTO) 8 % (1-7); LYMPHOCYTES # (AUTO) 2.13 x10^3/uL (1-3.4); LYMPHOCYTES % (AUTO) 38 % (22-44); MD SCAN; MONOCYTES # (AUTO) 0.92 x10^3/uL (0.2-0.8); MONOCYTES % (AUTO) 16 % (2-9); NEUTROPHILS # (AUTO) 2.08 x10^3/uL (1.8-6.8); NEUTROPHILS % (AUTO) 37 % (42-75)
[2017-12-16 07:25] VITALS: BP 126/69
[2017-12-16] MEDS: LISINOPRIL 5 MG TABLET PO SCH (07:34)
[2017-12-16] MEDS: RIVAROXABAN 20 MG TABLET PO SCH (07:34)
[2017-12-16] MEDS: PROPYLTHIOURACIL 50 MG TABLET PO SCH (07:34)
[2017-12-16] MEDS: FUROSEMIDE 20 MG/2 ML IV SCH (07:34)
[2017-12-16] MEDS: DILTIAZEM CD 180 MG CAP.ER.24H PO SCH (07:35)
[2017-12-16] MEDS ORDERED: DILT180C53 PO (10:55)
[2017-12-16] MEDS ORDERED: METH10TA6 PO (10:55)
[2017-12-16] MEDS ORDERED: PROP50TA3 PO (10:55)
[2017-12-16 11:38] VITALS: BP 119/79
== END 2017-12-16 12:35 | disposition home or self-care (01) | DRG 871 ==
LOC: ED 22:16 → EDIP 23:39 → 5SO 12-12 00:19 → DCLOUNGE 12-16 12:28
PROVIDERS: ADMIT Family Medicine; ATTEND Family Medicine
DX: A41.9 Sepsis, unspecified organism (principal); J15.9 Unspecified bacterial pneumonia; I11.0 Hypertensive heart disease with heart failure; D68.69 Other thrombophilia; E44.0 Moderate protein-calorie malnutrition; I27.20 Pulmonary hypertension, unspecified; I50.32 Chronic diastolic (congestive) heart failure; R17 Unspecified jaundice; J44.0 Chronic obstructive pulmonary disease with (acute) lower respiratory infection; I48.2 Chronic atrial fibrillation; F14.10 Cocaine abuse, uncomplicated; M54.9 Dorsalgia, unspecified; R65.20 Severe sepsis without septic shock; D64.9 Anemia, unspecified; E05.90 Thyrotoxicosis, unspecified without thyrotoxic crisis or storm; F15.10 Other stimulant abuse, uncomplicated; Z72.0 Tobacco use; Z86.711 Personal history of pulmonary embolism; Z86.718 Personal history of other venous thrombosis and embolism; Z95.0 Presence of cardiac pacemaker; Z68.21 Body mass index [BMI] 21.0-21.9, adult; Z88.0 Allergy status to penicillin; Z88.8 Allergy status to other drugs, medicaments and biological substances
CPT/HCPCS: 36415; 71045; 71250; 76700; 80053; 83520; 83605; 83735; 83880; 84439; 84443; 84481; 84484; 85025; 85610; 85730; 87040; 93005; 96374; 96375; J0696; J1170; J2250; J3010; J1940; J2060; J3475

== ENCOUNTER 2018-03-23 10:29 | Inpatient (IN) | payer MEDICAID ==
[~2018-03-23] VITALS: Ht 162.6 cm; Wt 44.6 kg
[~2018-03-23 10:29] MED LIST changes: +DILT180C53 PO
[2018-03-23] MEDS ORDERED: ALBUTEROL/IPRATROPIUM 2.5MG/0.5MG, 3 ML ONE ×2 (10:42→16:03)
[2018-03-23 10:57] LABS: MEAN CORPUSCULAR HEMOGLOBIN 28.3 pg (27.0-34.8); MEAN CORPUSCULAR HGB CONC 32.5 g/dL (32.4-35.8); MEAN PLATELET VOLUME 8.2 fL (7.4-10.4); PLATELET COUNT 265 x10^3/uL (130-400); RED BLOOD COUNT 4.11 x10^6/uL (3.82-5.3); RED CELL DISTRIBUTION WIDTH 14.7 % (9.6-15.2)
[2018-03-23] MEDS ORDERED: METOPROLOL 1 MG/ML, 5ML ONE ×3 (10:59→17:42)
[2018-03-23] MEDS ORDERED: SODIUM CHLORIDE FLUSH 10ML SYR IVF ONE (11:00)
[2018-03-23] MEDS ORDERED: METOPROLOL 1 MG/ML, 5ML IVPush ONE ×3 (11:00→19:00)
[2018-03-23] MEDS ORDERED: AMIODARONE 50 MG/ML, 3ML ONE ×2 (11:06→17:41)
[2018-03-23 11:08] LABS: ALBUMIN 2.7 g/dL (3.4-5.0); ANION GAP 11 mmol/L (5-15); CHLORIDE 106 mmol/L (98-107)
[2018-03-23 11:11] LABS: ALANINE AMINOTRANSFERASE 20 U/L (12-78); ALKALINE PHOSPHATASE 173 U/L (45-117); BILIRUBIN,TOTAL 3.1 mg/dL (0.2-1.0); CREATININE 0.47 mg/dL (0.55-1.02); TOTAL PROTEIN 7.4 g/dL (6.4-8.2); TROPONIN I < 0.015 ng/mL (0.000-0.045)
[2018-03-23 11:25] LABS: MD YES
[2018-03-23 11:28] LABS: BAND#(MANUAL) 0.19 x10^3/uL; BANDS%(MANUAL) 1 % (0-7); LYMPH#(MANUAL) 3.28 x10^3/uL (1-3.4); LYMPHS% (MANUAL) 17 % (22-44); MONOS#(MANUAL) 0.58 x10^3/uL (0.3-2.7); MONOS% (MANUAL) 3 % (2-9); SEG#(MANUAL) 15.25 x10^3/uL (1.8-6.8); SEGS% (MANUAL) 79 % (42-75)
[2018-03-23 11:29] LABS: <PLATELET ESTIMATE> ADEQUATE; <PLT MORPHOLOGY> NORMAL PLT MORPH; <RBC MORPHOLOGY> NORMAL
[2018-03-23] MEDS ORDERED: VERAPAMIL 2.5 MG/ML, 2ML IV ONE (11:30)
[2018-03-23] MEDS ORDERED: VERAPAMIL 2.5 MG/ML, 2ML ONE (11:44)
[2018-03-23] MEDS ORDERED: FUROSEMIDE 20 MG/2 ML ONE (11:44)
[2018-03-23] MEDS ORDERED: FUROSEMIDE 100 MG/10 ML IV ONE (12:00)
[2018-03-23 14:18] VITALS: BP 125/91
[2018-03-23 15:00] LABS: FREE T4 (FREE THYROXINE) 5.17 ng/dL (0.76-1.46)
[2018-03-23] MEDS ORDERED: LORazepam 2 MG/ML, 1ML IVPush ONE (15:00)
[2018-03-23 15:15] LABS: THYROID STIMULATING HORMONE < 0.005 mIU/L (0.358-3.740)
[2018-03-23] MEDS ORDERED: ONDANSETRON ODT 4 MG PO PRN (15:30)
[2018-03-23] MEDS: NICOTINE 7 MG/24 HR PATCH.TD24 TD SCH (15:30)
[2018-03-23 15:40] LABS: AMPHETAMINE SCREEN, URINE Negative (Negative); BARBITURATE SCREEN, URINE Negative (Negative); BENZODIAZEPINE SCREEN, URINE Negative (Negative); CANNABINOID SCREEN, URINE Negative (Negative); COCAINE SCREEN, URINE Positive (Negative); METHADONE SCREEN, URINE Negative (Negative); OPIATE SCREEN, URINE Negative (Negative)
[2018-03-23] MEDS ORDERED: ALBU18HF INH (15:42)
[2018-03-23] MEDS ORDERED: TIOT18CA INH (15:42)
[2018-03-23] MEDS ORDERED: FLUT1AER INH (15:42)
[2018-03-23] MEDS ORDERED: LISINOPRIL 5 MG TABLET PO SCH (15:54)
[2018-03-23] MEDS ORDERED: DILTIAZEM CD 180 MG CAP.ER.24H PO SCH (15:54)
[2018-03-23] MEDS ORDERED: RIVAROXABAN 20 MG TABLET PO SCH (15:54)
[2018-03-23 15:59] VITALS: BP 119/79
[2018-03-23] MEDS ORDERED: DOXYCYCLINE 100 MG in DEXTROSE 5% 250 ML IV SCH (16:00)
[2018-03-23] MEDS ORDERED: DIGOXIN 0.25 MG/ML, 2ML IVPush ONE (16:00)
[2018-03-23] MEDS ORDERED: VERAPAMIL 2.5 MG/ML, 4ML IVPush ONE (16:00)
[2018-03-23] MEDS ORDERED: CEFTRIAXONE PMX 1GM/50ML 50 ML IV SCH (16:00)
[2018-03-23 16:25] VITALS: BP 130/85
[2018-03-23] MEDS ORDERED: MAGNESIUM SULFATE PMX 4GM/100M 100 ML IV ONE (17:00)
[2018-03-23] MEDS: FUROSEMIDE 20 MG/2 ML IV SCH (17:00)
[2018-03-23] MEDS ORDERED: ROCURONIUM 10 MG/ML,10ML ONE (17:41)
[2018-03-23] MEDS ORDERED: CODE BLUE RESPONSE XX ONE (17:41)
[2018-03-23] MEDS ORDERED: ETOMIDATE 20 MG/10 ML ONE (17:41)
[2018-03-23] MEDS ORDERED: FILTER 0.22 MICRON IV PRN (18:00)
[2018-03-23] MEDS ORDERED: AMIODARONE 150 MG in DEXTROSE 5% 100 ML IVPB ONE (18:00)
[2018-03-23] MEDS ORDERED: SENNA/DOCUSATE TABLET NG PRN (18:30)
[2018-03-23] MEDS ORDERED: FENTANYL PF 100 MCG/2ML IVPush PRN (18:30)
[2018-03-23] MEDS ORDERED: SENNOSIDES 8.8 MG/5 ML ORAL SOL NG PRN (18:30)
[2018-03-23] MEDS ORDERED: SODIUM CHLORIDE 0.9% 1,000ML IVBOLUS ONE ×2 (18:30→19:30)
[2018-03-23] MEDS ORDERED: BISACODYL 10 MG SUPP PR PRN (18:30)
[2018-03-23] MEDS ORDERED: LIDOCAINE-MPF 1%, 2ML ENDO PRN (18:30)
[2018-03-23] MEDS ORDERED: LACTULOSE 20 GM/30 ML UDC NG PRN (18:30)
[2018-03-23] MEDS ORDERED: PHARMACY MAY ADJ FOR RENAL FX MC SCH (18:30)
[2018-03-23 18:37] LABS: ANION GAP 14 mmol/L (5-15); CHLORIDE 105 mmol/L (98-107); CREATININE 0.81 mg/dL (0.55-1.02); TRIGLYCERIDES 71 mg/dL (50-200)
[2018-03-23 18:44] LABS: INTERNATIONAL NORMALIZED RATIO 1.44 (0.93-1.1); MEAN CORPUSCULAR HEMOGLOBIN 28.9 pg (27.0-34.8); MEAN CORPUSCULAR HGB CONC 32.4 g/dL (32.4-35.8); MEAN CORPUSCULAR VOLUME 89.3 fL (80-100); MEAN PLATELET VOLUME 8.5 fL (7.4-10.4); PLATELET COUNT 305 x10^3/uL (130-400); PROTHROMBIN TIME 14.9 Seconds (9.6-11.5); RED BLOOD COUNT 4.22 x10^6/uL (3.82-5.3); RED CELL DISTRIBUTION WIDTH 14.8 % (9.6-15.2)
[2018-03-23 18:46] LABS: BASOPHILS # (AUTO) 0.05 x10^3/uL (0-0.1); BASOPHILS % (AUTO) 0 % (0-1); EOSINOPHILS # (AUTO) 0.06 x10^3/uL (0-0.4); EOSINOPHILS % (AUTO) 0 % (1-7); LYMPHOCYTES # (AUTO) 4.16 x10^3/uL (1-3.4); LYMPHOCYTES % (AUTO) 22 % (22-44); MONOCYTES # (AUTO) 1.39 x10^3/uL (0.2-0.8); MONOCYTES % (AUTO) 7 % (2-9); NEUTROPHILS # (AUTO) 13.08 x10^3/uL (1.8-6.8); NEUTROPHILS % (AUTO) 70 % (42-75)
[2018-03-23 18:47] LABS: MD SCAN
[2018-03-23] MEDS: ALBUTEROL/IPRATROPIUM 2.5MG/0.5MG, 3 ML INLINE SCH ×2 (19:05→22:10)
[2018-03-23 19:14] LABS: TROPONIN I 0.028 ng/mL (0.000-0.045)
[2018-03-23] MEDS: PROPOFOL 100 ML IV PRN (19:21)
[2018-03-23] MEDS ORDERED: HEPARIN 5,000 UNITS/ML, 1ML IV ONE (19:30)
[2018-03-23] MEDS: AMIODARONE 450 MG in DEXTROSE 5% 241 ML IV PRN (19:37)
[2018-03-23] MEDS ORDERED: ALBUTEROL/IPRATROPIUM 2.5MG/0.5MG, 3 ML NPPB SCH (20:00)
[2018-03-23] MEDS: CEFTRIAXONE PMX 2GM/50ML 50 ML IV SCH (20:31)
[2018-03-23] MEDS: METRONIDAZOLE PMX 500MG/100ML 100 ML IV SCH (20:31)
[2018-03-23] MEDS: ASPIRIN 81 MG TABLET CHEW NG SCH (20:34)
[2018-03-23] MEDS: HEPARIN 25,000 UNITS/500ML PMX 500 ML IV PRN (20:37)
[2018-03-24 01:39] LABS: TROPONIN I 0.047 ng/mL (0.000-0.045)
[2018-03-24] MEDS: HEPARIN 5,000 UNITS/ML, 1ML IV PRN ×4 (01:54→21:40)
[2018-03-24] MEDS: ALBUTEROL/IPRATROPIUM 2.5MG/0.5MG, 3 ML INLINE SCH ×6 (02:18→22:13)
[2018-03-24] MEDS: METRONIDAZOLE PMX 500MG/100ML 100 ML IV SCH ×3 (03:23→18:36)
[2018-03-24 03:36] VITALS: BP 97/71
[2018-03-24] MEDS: AMIODARONE 450 MG in DEXTROSE 5% 241 ML IV PRN (04:22)
[2018-03-24] MEDS: PROPOFOL 100 ML IV PRN ×2 (04:22→14:55)
[2018-03-24 04:34] LABS: MEAN CORPUSCULAR HEMOGLOBIN 28.2 pg (27.0-34.8); MEAN CORPUSCULAR HGB CONC 31.9 g/dL (32.4-35.8); MEAN CORPUSCULAR VOLUME 88.3 fL (80-100); MEAN PLATELET VOLUME 8.4 fL (7.4-10.4); PLATELET COUNT 227 x10^3/uL (130-400); RED BLOOD COUNT 3.96 x10^6/uL (3.82-5.3); RED CELL DISTRIBUTION WIDTH 14.8 % (9.6-15.2)
[2018-03-24 04:43] LABS: ALBUMIN 2.1 g/dL (3.4-5.0); ANION GAP 9 mmol/L (5-15); CALCIUM 7.2 mg/dL (8.5-10.1); CHLORIDE 108 mmol/L (98-107)
[2018-03-24 04:54] LABS: ALANINE AMINOTRANSFERASE 42 U/L (12-78); ALKALINE PHOSPHATASE 140 U/L (45-117); BILIRUBIN,TOTAL 2.2 mg/dL (0.2-1.0); CREATININE 0.88 mg/dL (0.55-1.02); FREE T4 (FREE THYROXINE) 7.52 ng/dL (0.76-1.46); TOTAL PROTEIN 5.7 g/dL (6.4-8.2)
[2018-03-24 04:58] LABS: THYROID STIMULATING HORMONE < 0.005 mIU/L (0.358-3.740)
[2018-03-24 05:03] LABS: BASOPHILS # (AUTO) 0.01 x10^3/uL (0-0.1); BASOPHILS % (AUTO) 0 % (0-1); EOSINOPHILS # (AUTO) 0.17 x10^3/uL (0-0.4); EOSINOPHILS % (AUTO) 1 % (1-7); LYMPHOCYTES # (AUTO) 3.37 x10^3/uL (1-3.4); LYMPHOCYTES % (AUTO) 18 % (22-44); MD SCAN; MONOCYTES # (AUTO) 1.16 x10^3/uL (0.2-0.8); MONOCYTES % (AUTO) 6 % (2-9); NEUTROPHILS # (AUTO) 14.43 x10^3/uL (1.8-6.8); NEUTROPHILS % (AUTO) 75 % (42-75)
[2018-03-24] MEDS ORDERED: HYDROCORTISONE 100 MG INJ. IVPush SCH (07:30)
[2018-03-24] MEDS: FUROSEMIDE 20 MG/2 ML IV SCH ×2 (08:23→16:49)
[2018-03-24] MEDS ORDERED: ALBUTEROL SULFATE INH SCH (09:00)
[2018-03-24] MEDS ORDERED: Tiotropium Bromide** (Spiriva**) 18 MCG) INH SCH (09:00)
[2018-03-24] MEDS: FLUTICASONE/VILANTEROL 100-25MCG/INH INH SCH (09:00)
[2018-03-24] MEDS: PANTOPRAZOLE 40 MG IV IV SCH (09:45)
[2018-03-24] MEDS: POTASSIUM CHLORIDE 10% 40 MEQ/30 ML UDC PO SCH ×2 (09:45→21:43)
[2018-03-24] MEDS: ASPIRIN 81 MG TABLET CHEW NG SCH (09:45)
[2018-03-24] MEDS ORDERED: CALCIUM GLUCONATE 4.6 MEQ in SODIUM CHLORIDE 0.9% 50 ML IV ONE (11:00)
[2018-03-24] MEDS ORDERED: HYDROCORTISONE 100 MG INJ. IVPush ONE (13:00)
[2018-03-24] MEDS ORDERED: POTASSIUM CHLORIDE 20 MEQ TAB.ER.PRT PO ONE (13:00)
[2018-03-24] MEDS: NICOTINE 7 MG/24 HR PATCH.TD24 TD SCH (15:21)
[2018-03-24] MEDS: HYDROCORTISONE 100 MG INJ. IVPush SCH ×2 (15:21→23:51)
[2018-03-24] MEDS: CEFTRIAXONE PMX 2GM/50ML 50 ML IV SCH (20:14)
[2018-03-24] MEDS: HEPARIN 25,000 UNITS/500ML PMX 500 ML IV PRN (21:41)
[2018-03-25] MEDS: PROPOFOL 100 ML IV PRN (01:50)
[2018-03-25] MEDS: ALBUTEROL/IPRATROPIUM 2.5MG/0.5MG, 3 ML INLINE SCH ×3 (02:25→10:30)
[2018-03-25] MEDS: METRONIDAZOLE PMX 500MG/100ML 100 ML IV SCH ×3 (02:51→19:19)
[2018-03-25 04:00] VITALS: BP 96/60
[2018-03-25 05:02] LABS: ANION GAP 9 mmol/L (5-15); CALCIUM 7.6 mg/dL (8.5-10.1); CHLORIDE 107 mmol/L (98-107)
[2018-03-25 05:05] LABS: MEAN CORPUSCULAR HEMOGLOBIN 28.9 pg (27.0-34.8); MEAN CORPUSCULAR VOLUME 87.5 fL (80-100); MEAN PLATELET VOLUME 8.6 fL (7.4-10.4); PLATELET COUNT 254 x10^3/uL (130-400); RED BLOOD COUNT 3.78 x10^6/uL (3.82-5.3); RED CELL DISTRIBUTION WIDTH 14.9 % (9.6-15.2)
[2018-03-25 05:13] LABS: CREATININE 1.07 mg/dL (0.55-1.02)
[2018-03-25 05:19] LABS: THYROID STIMULATING HORMONE < 0.005 mIU/L (0.358-3.740)
[2018-03-25 05:20] LABS: FREE T4 (FREE THYROXINE) > 8.00 ng/dL (0.76-1.46)
[2018-03-25 06:07] LABS: BASOPHILS # (AUTO) 0.02 x10^3/uL (0-0.1); BASOPHILS % (AUTO) 0 % (0-1); EOSINOPHILS % (AUTO) 0 % (1-7); LYMPHOCYTES # (AUTO) 0.88 x10^3/uL (1-3.4); LYMPHOCYTES % (AUTO) 8 % (22-44); MD SCAN; MONOCYTES # (AUTO) 0.58 x10^3/uL (0.2-0.8); MONOCYTES % (AUTO) 5 % (2-9); NEUTROPHILS # (AUTO) 9.55 x10^3/uL (1.8-6.8); NEUTROPHILS % (AUTO) 87 % (42-75)
[2018-03-25] MEDS: HEPARIN 5,000 UNITS/ML, 1ML IV PRN ×3 (06:12→22:21)
[2018-03-25] MEDS ORDERED: AMIODARONE 50 MG/ML, 3ML IVPush ONE (08:00)
[2018-03-25] MEDS ORDERED: AMIODARONE 150 MG in DEXTROSE 5% 100 ML IV ONE (08:00)
[2018-03-25] MEDS ORDERED: FILTER 0.22 MICRON IV ONE (08:00)
[2018-03-25] MEDS: ASPIRIN 81 MG TABLET CHEW NG SCH (08:30)
[2018-03-25] MEDS: PANTOPRAZOLE 40 MG IV IV SCH (08:30)
[2018-03-25] MEDS: FLUTICASONE/VILANTEROL 100-25MCG/INH INH SCH (08:31)
[2018-03-25] MEDS: FUROSEMIDE 20 MG/2 ML IV SCH ×2 (08:31→16:35)
[2018-03-25] MEDS: HYDROCORTISONE 100 MG INJ. IVPush SCH ×2 (08:31→16:34)
[2018-03-25] MEDS ORDERED: CALCIUM GLUCONATE 4.6 MEQ in SODIUM CHLORIDE 0.9% 50 ML IV ONE (09:00)
[2018-03-25] MEDS ORDERED: MAGNESIUM SULFATE PMX 2GM/50ML 50 ML IV ONE (09:00)
[2018-03-25] MEDS: AMIODARONE 450 MG in DEXTROSE 5% 241 ML IV PRN (09:13)
[2018-03-25] MEDS: POTASSIUM CHLORIDE 20 MEQ PACKET PO SCH ×2 (09:15→16:35)
[2018-03-25] MEDS ORDERED: ERGOCALCIFEROL 50,000 UNIT CAPSULE PO SCH (11:00)
[2018-03-25] MEDS: NICOTINE 7 MG/24 HR PATCH.TD24 TD SCH (15:30)
[2018-03-25] MEDS: HEPARIN 25,000 UNITS/500ML PMX 500 ML IV PRN ×2 (19:33→22:23)
[2018-03-25] MEDS ORDERED: FENTANYL PF 100 MCG/2ML IVPush PRN (20:00)
[2018-03-25] MEDS: CEFTRIAXONE PMX 2GM/50ML 50 ML IV SCH (21:05)
[2018-03-26] MEDS: HYDROCORTISONE 100 MG INJ. IVPush SCH (00:38)
[2018-03-26] MEDS: AMIODARONE 450 MG in DEXTROSE 5% 241 ML IV PRN (00:39)
[2018-03-26] MEDS: METRONIDAZOLE PMX 500MG/100ML 100 ML IV SCH ×3 (03:15→20:27)
[2018-03-26 04:00] VITALS: BP 101/79
[2018-03-26 04:42] LABS: MEAN CORPUSCULAR HGB CONC 32.4 g/dL (32.4-35.8); MEAN CORPUSCULAR VOLUME 89.6 fL (80-100); MEAN PLATELET VOLUME 8.4 fL (7.4-10.4); PLATELET COUNT 242 x10^3/uL (130-400); RED BLOOD COUNT 3.73 x10^6/uL (3.82-5.3); RED CELL DISTRIBUTION WIDTH 14.6 % (9.6-15.2)
[2018-03-26 04:47] LABS: O2 FLOW 1.75 L/min
[2018-03-26 04:53] LABS: ANION GAP 8 mmol/L (5-15); CALCIUM 8.1 mg/dL (8.5-10.1); CHLORIDE 108 mmol/L (98-107); CREATININE 0.85 mg/dL (0.55-1.02)
[2018-03-26 04:54] LABS: MD YES
[2018-03-26 04:56] LABS: LYMPH#(MANUAL) 1.76 x10^3/uL (1-3.4); LYMPHS% (MANUAL) 11 % (22-44); MONOS#(MANUAL) 0.48 x10^3/uL (0.3-2.7); MONOS% (MANUAL) 3 % (2-9); SEG#(MANUAL) 13.76 x10^3/uL (1.8-6.8); SEGS% (MANUAL) 86 % (42-75)
[2018-03-26 04:57] LABS: <PLATELET ESTIMATE> ADEQUATE; <PLT MORPHOLOGY> NORMAL PLT MORPH; ANISOCYTOSIS 1+; POLYCHROMASIA 1+
[2018-03-26 05:02] LABS: FREE T4 (FREE THYROXINE) 7.37 ng/dL (0.76-1.46); TRIGLYCERIDES 42 mg/dL (50-200)
[2018-03-26] MEDS: FUROSEMIDE 20 MG/2 ML IV SCH ×2 (09:18→18:22)
[2018-03-26] MEDS: POTASSIUM CHLORIDE 20 MEQ PACKET PO SCH ×2 (09:18→18:22)
[2018-03-26] MEDS: FLUTICASONE/VILANTEROL 100-25MCG/INH INH SCH (09:19)
[2018-03-26] MEDS: ASPIRIN 81 MG TABLET CHEW NG SCH (09:19)
[2018-03-26] MEDS: AMIODARONE 200 MG TABLET PO SCH ×2 (09:20→21:52)
[2018-03-26] MEDS: HEPARIN 5,000 UNITS/ML, 1ML IV PRN ×2 (11:34→18:21)
[2018-03-26] MEDS: HEPARIN 25,000 UNITS/500ML PMX 500 ML IV PRN (13:49)
[2018-03-26 17:45] VITALS: BP 110/72
[2018-03-26] MEDS: NICOTINE 7 MG/24 HR PATCH.TD24 TD SCH (18:22)
[2018-03-26 18:55] VITALS: BP 128/86
[2018-03-26] MEDS: DIPHENHYDRAMINE 50 MG CAPSULE PO PRN (20:27)
[2018-03-26] MEDS: CEFTRIAXONE PMX 2GM/50ML 50 ML IV SCH (21:52)
[2018-03-26] MEDS: LORazepam 2 MG/ML, 1ML IVPush PRN (22:01)
[2018-03-26] MEDS ORDERED: METOPROLOL TARTRATE 25 MG TABLET ONE (23:09)
[2018-03-26] MEDS: METOPROLOL TARTRATE 25 MG TABLET PO SCH (23:11)
[2018-03-27] MEDS: HEPARIN 5,000 UNITS/ML, 1ML IV PRN ×2 (01:26→14:16)
[2018-03-27] MEDS: METRONIDAZOLE PMX 500MG/100ML 100 ML IV SCH ×3 (03:07→19:31)
[2018-03-27 03:09] VITALS: BP 104/74
[2018-03-27] MEDS: METOPROLOL TARTRATE 25 MG TABLET PO SCH ×2 (06:14→16:52)
[2018-03-27] MEDS: HEPARIN 25,000 UNITS/500ML PMX 500 ML IV PRN ×2 (06:15→19:12)
[2018-03-27] MEDS: FLUTICASONE/VILANTEROL 100-25MCG/INH INH SCH (09:00)
[2018-03-27 09:01] VITALS: BP 105/67
[2018-03-27] MEDS: FUROSEMIDE 20 MG/2 ML IV SCH ×2 (09:11→16:52)
[2018-03-27] MEDS: ASPIRIN 81 MG TABLET CHEW NG SCH (09:12)
[2018-03-27] MEDS: AMIODARONE 200 MG TABLET PO SCH ×2 (09:12→21:32)
[2018-03-27] MEDS: POTASSIUM CHLORIDE 20 MEQ PACKET PO SCH ×2 (09:18→16:10)
[2018-03-27 14:38] VITALS: BP 97/68
[2018-03-27] MEDS: NICOTINE 7 MG/24 HR PATCH.TD24 TD SCH (15:30)
[2018-03-27] MEDS ORDERED: GUAIFENESIN 200 MG TABLET PO ONE (19:30)
[2018-03-27 20:14] VITALS: BP 111/75
[2018-03-27] MEDS: DIPHENHYDRAMINE 50 MG CAPSULE PO PRN (21:32)
[2018-03-27] MEDS: CEFTRIAXONE PMX 2GM/50ML 50 ML IV SCH (21:33)
[2018-03-28 00:42] VITALS: BP 100/65
[2018-03-28] MEDS: LORazepam 2 MG/ML, 1ML IVPush PRN (03:19)
[2018-03-28] MEDS: METOPROLOL TARTRATE 25 MG TABLET PO SCH (03:23)
[2018-03-28] MEDS: METRONIDAZOLE PMX 500MG/100ML 100 ML IV SCH ×2 (03:23→10:51)
[2018-03-28 03:59] LABS: MEAN CORPUSCULAR HEMOGLOBIN 29.2 pg (27.0-34.8); MEAN CORPUSCULAR HGB CONC 32.7 g/dL (32.4-35.8); MEAN CORPUSCULAR VOLUME 89.4 fL (80-100); MEAN PLATELET VOLUME 8.6 fL (7.4-10.4); PLATELET COUNT 180 x10^3/uL (130-400); RED BLOOD COUNT 3.64 x10^6/uL (3.82-5.3); RED CELL DISTRIBUTION WIDTH 15.2 % (9.6-15.2)
[2018-03-28 04:09] LABS: ANION GAP 5 mmol/L (5-15); CHLORIDE 103 mmol/L (98-107); CREATININE 0.53 mg/dL (0.55-1.02)
[2018-03-28 04:19] LABS: FREE T4 (FREE THYROXINE) 5.73 ng/dL (0.76-1.46)
[2018-03-28 04:28] LABS: MD YES
[2018-03-28 04:30] LABS: ANISOCYTOSIS 1+; EOS#(MANUAL) 0.23 x10^3/uL (0.0-0.4); EOS% (MANUAL) 2 % (1-7); LYMPH#(MANUAL) 3.86 x10^3/uL (1-3.4); LYMPHS% (MANUAL) 33 % (22-44); MONOS#(MANUAL) 0.35 x10^3/uL (0.3-2.7); MONOS% (MANUAL) 3 % (2-9); SEG#(MANUAL) 7.25 x10^3/uL (1.8-6.8); SEGS% (MANUAL) 62 % (42-75)
[2018-03-28 04:31] LABS: OVALOCYTES 1+; POLYCHROMASIA 1+
[2018-03-28 04:32] LABS: <PLATELET ESTIMATE> ADEQUATE; <PLT MORPHOLOGY> NORMAL PLT MORPH
[2018-03-28 06:47] VITALS: BP 95/58
[2018-03-28] MEDS: POTASSIUM CHLORIDE 20 MEQ PACKET PO SCH ×2 (08:00→17:00)
[2018-03-28] MEDS: FLUTICASONE/VILANTEROL 100-25MCG/INH INH SCH (09:00)
[2018-03-28] MEDS: FUROSEMIDE 20 MG/2 ML IV SCH ×2 (09:36→17:00)
[2018-03-28] MEDS: ASPIRIN 81 MG TABLET CHEW NG SCH (09:37)
[2018-03-28] MEDS: AMIODARONE 200 MG TABLET PO SCH ×2 (09:37→21:04)
[2018-03-28] MEDS ORDERED: POTASSIUM CHLORIDE 40 MEQ in SODIUM CHLORIDE 0.9% 500 ML IV ONE (10:30)
[2018-03-28] MEDS: HEPARIN 25,000 UNITS/500ML PMX 500 ML IV PRN (11:02)
[2018-03-28] MEDS ORDERED: CALCIUM CHLORIDE 13.6 MEQ in SODIUM CHLORIDE 0.9% 100 ML IV ONE (11:30)
[2018-03-28] MEDS ORDERED: POTASSIUM CHLORIDE 20 MEQ TAB.ER.PRT PO ONE (11:30)
[2018-03-28 14:54] VITALS: BP 98/65
[2018-03-28] MEDS: metroNIDAZOLE 500 MG TABLET PO SCH ×2 (15:08→23:31)
[2018-03-28] MEDS: NICOTINE 7 MG/24 HR PATCH.TD24 TD SCH (15:30)
[2018-03-28] MEDS ORDERED: POTASSIUM CHLORIDE 20 MEQ in SODIUM CHLORIDE 0.9% 250 ML IV ONE (17:30)
[2018-03-28] MEDS: CARVEDILOL 3.125 MG TABLET PO SCH (18:00)
[2018-03-28 18:53] VITALS: BP 96/72
[2018-03-28] MEDS: DOXYCYCLINE 100MG TABLET PO SCH (21:03)
[2018-03-29] MEDS: HEPARIN 25,000 UNITS/500ML PMX 500 ML IV PRN ×2 (02:30→16:21)
[2018-03-29 03:59] VITALS: BP 95/57
[2018-03-29 05:28] LABS: MEAN CORPUSCULAR HEMOGLOBIN 28.7 pg (27.0-34.8); MEAN CORPUSCULAR HGB CONC 32.2 g/dL (32.4-35.8); MEAN CORPUSCULAR VOLUME 89.3 fL (80-100); MEAN PLATELET VOLUME 8.6 fL (7.4-10.4); PLATELET COUNT 165 x10^3/uL (130-400); RED BLOOD COUNT 3.45 x10^6/uL (3.82-5.3); RED CELL DISTRIBUTION WIDTH 15.6 % (9.6-15.2)
[2018-03-29 05:30] LABS: ANION GAP 7 mmol/L (5-15); CALCIUM 7.7 mg/dL (8.5-10.1); CHLORIDE 107 mmol/L (98-107)
[2018-03-29 05:33] LABS: CREATININE 0.44 mg/dL (0.55-1.02)
[2018-03-29 05:50] LABS: MD YES
[2018-03-29 05:52] LABS: EOS#(MANUAL) 0.74 x10^3/uL (0.0-0.4); EOS% (MANUAL) 9 % (1-7); LYMPH#(MANUAL) 2.95 x10^3/uL (1-3.4); LYMPHS% (MANUAL) 36 % (22-44); MONOS#(MANUAL) 0.41 x10^3/uL (0.3-2.7); MONOS% (MANUAL) 5 % (2-9); SEGS% (MANUAL) 50 % (42-75)
[2018-03-29 05:53] LABS: <PLATELET ESTIMATE> ADEQUATE; <PLT MORPHOLOGY> NORMAL PLT MORPH; ANISOCYTOSIS 1+; POLYCHROMASIA 1+
[2018-03-29] MEDS: CARVEDILOL 3.125 MG TABLET PO SCH (06:00)
[2018-03-29] MEDS: metroNIDAZOLE 500 MG TABLET PO SCH ×3 (06:26→21:18)
[2018-03-29] MEDS: FUROSEMIDE 20 MG/2 ML IV SCH ×2 (07:30→16:21)
[2018-03-29] MEDS ORDERED: MAGNESIUM SULFATE PMX 4GM/100M 100 ML IV ONE (08:00)
[2018-03-29] MEDS: POTASSIUM CHLORIDE 20 MEQ PACKET PO SCH ×2 (08:00→16:21)
[2018-03-29] MEDS: AMIODARONE 200 MG TABLET PO SCH ×2 (08:12→21:18)
[2018-03-29] MEDS: ASPIRIN 81 MG TABLET CHEW NG SCH (08:12)
[2018-03-29] MEDS: DOXYCYCLINE 100MG TABLET PO SCH ×2 (08:12→21:18)
[2018-03-29] MEDS: FLUTICASONE/VILANTEROL 100-25MCG/INH INH SCH (08:13)
[2018-03-29 08:35] VITALS: BP 109/71
[2018-03-29 13:14] VITALS: BP 127/87
[2018-03-29] MEDS: NICOTINE 7 MG/24 HR PATCH.TD24 TD SCH (14:58)
[2018-03-29 18:52] VITALS: BP 109/70
[2018-03-30 04:15] VITALS: BP 104/67
[2018-03-30] MEDS: metroNIDAZOLE 500 MG TABLET PO SCH (05:45)
[2018-03-30 06:48] VITALS: BP 91/53
[2018-03-30] MEDS: HEPARIN 25,000 UNITS/500ML PMX 500 ML IV PRN ×2 (06:57→06:59)
[2018-03-30] MEDS: FUROSEMIDE 20 MG/2 ML IV SCH (07:30)
[2018-03-30] MEDS: POTASSIUM CHLORIDE 20 MEQ PACKET PO SCH ×2 (08:00→17:00)
[2018-03-30] MEDS ORDERED: MAGNESIUM SULFATE PMX 4GM/100M 100 ML IV ONE (08:30)
[2018-03-30 09:55] VITALS: BP 112/77
[2018-03-30] MEDS: SPIRONOLACTONE 25 MG TABLET PO SCH (10:08)
[2018-03-30] MEDS: FUROSEMIDE 20 MG TABLET PO SCH (10:09)
[2018-03-30] MEDS: AMIODARONE 200 MG TABLET PO SCH (10:09)
[2018-03-30] MEDS: LISINOPRIL 5 MG TABLET PO SCH (10:09)
[2018-03-30] MEDS: DOXYCYCLINE 100MG TABLET PO SCH ×2 (10:09→20:24)
[2018-03-30] MEDS: ASPIRIN 81 MG TABLET CHEW NG SCH (10:10)
[2018-03-30] MEDS: FLUTICASONE/VILANTEROL 100-25MCG/INH INH SCH (10:53)
[2018-03-30] MEDS: NICOTINE 7 MG/24 HR PATCH.TD24 TD SCH (13:48)
[2018-03-30 14:08] VITALS: BP 111/67
[2018-03-30] MEDS ORDERED: RIVAROXABAN 20 MG TABLET PO SCH (17:00)
[2018-03-30 20:10] VITALS: BP 116/68
[2018-03-31 02:46] VITALS: BP 96/60
[2018-03-31 07:43] VITALS: BP 119/76
[2018-03-31] MEDS: POTASSIUM CHLORIDE 20 MEQ PACKET PO SCH (08:00)
[2018-03-31] MEDS: FLUTICASONE/VILANTEROL 100-25MCG/INH INH SCH (09:00)
[2018-03-31 09:20] VITALS: BP 104/67
[2018-03-31] MEDS: AMIODARONE 200 MG TABLET PO SCH (09:21)
[2018-03-31] MEDS: DOXYCYCLINE 100MG TABLET PO SCH (09:21)
[2018-03-31] MEDS: SPIRONOLACTONE 25 MG TABLET PO SCH (09:22)
[2018-03-31] MEDS: ASPIRIN 81 MG TABLET CHEW NG SCH (09:22)
[2018-03-31] MEDS: FUROSEMIDE 20 MG TABLET PO SCH (09:22)
[2018-03-31] MEDS: LISINOPRIL 5 MG TABLET PO SCH (09:22)
[2018-03-31] MEDS ORDERED: ACETAMINOPHEN 325 MG TABLET ONE (09:43)
[2018-03-31] MEDS ORDERED: ACETAMINOPHEN 325 MG TABLET PO PRN (10:00)
[2018-03-31 12:15] VITALS: BP 99/63
[2018-03-31] MEDS: NICOTINE 7 MG/24 HR PATCH.TD24 TD SCH (13:17)
[2018-03-31 13:30] LABS: FREE T4 (FREE THYROXINE) 3.06 ng/dL (0.76-1.46)
[2018-03-31] MEDS ORDERED: ERGO500017 PO (13:33)
[2018-03-31] MEDS ORDERED: AMIO200T42 PO (13:33)
[2018-03-31] MEDS ORDERED: SPIR25TA PO (13:33)
[2018-03-31] MEDS ORDERED: LISI5TAB7 PO (13:33)
[2018-03-31] MEDS ORDERED: ASPI-515 NG (13:33)
[2018-03-31] MEDS ORDERED: FURO20TA3 PO (13:33)
[2018-03-31] MEDS ORDERED: POTA20PA25 PO (13:33)
[2018-03-31] MEDS ORDERED: MAGNESIUM SULFATE 4 GM in SODIUM CHLORIDE 0.9% 100 ML IV ONE (14:00)
== END 2018-03-31 17:09 | disposition home or self-care (01) | DRG 871 ==
LOC: ED 12:39 → 5SO 12:40 → ED 13:36 → CCU 17:33 → 5SO 03-26 17:43
PROVIDERS: ADMIT Internal Medicine; ATTEND Internal Medicine
PROC: 5A1945Z Respiratory Ventilation, 24-96 Consecutive Hours (ICD-10-PCS; principal; 2018-03-23)
PROC: 0BH17EZ Insertion of Endotracheal Airway into Trachea, Via Natural or Artificial Opening (ICD-10-PCS; 2018-03-23)
PROC: 5A2204Z Restoration of Cardiac Rhythm, Single (ICD-10-PCS; 2018-03-23)
DX: A41.9 Sepsis, unspecified organism (principal); E43 Unspecified severe protein-calorie malnutrition; J96.20 Acute and chronic respiratory failure, unspecified whether with hypoxia or hypercapnia; I46.2 Cardiac arrest due to underlying cardiac condition; J69.0 Pneumonitis due to inhalation of food and vomit; D68.69 Other thrombophilia; I50.43 Acute on chronic combined systolic (congestive) and diastolic (congestive) heart failure; E27.40 Unspecified adrenocortical insufficiency; I49.01 Ventricular fibrillation; I47.2 Ventricular tachycardia; I42.9 Cardiomyopathy, unspecified; I48.1 Persistent atrial fibrillation; I48.92 Unspecified atrial flutter; Z68.1 Body mass index [BMI] 19.9 or less, adult; E83.42 Hypomagnesemia; I27.20 Pulmonary hypertension, unspecified; I11.0 Hypertensive heart disease with heart failure; D63.8 Anemia in other chronic diseases classified elsewhere; E03.9 Hypothyroidism, unspecified; E05.90 Thyrotoxicosis, unspecified without thyrotoxic crisis or storm; E87.6 Hypokalemia; F14.10 Cocaine abuse, uncomplicated; F15.10 Other stimulant abuse, uncomplicated; F17.200 Nicotine dependence, unspecified, uncomplicated; I49.5 Sick sinus syndrome; J44.9 Chronic obstructive pulmonary disease, unspecified; K80.20 Calculus of gallbladder without cholecystitis without obstruction; Z79.01 Long term (current) use of anticoagulants; Z79.899 Other long term (current) drug therapy; Z86.711 Personal history of pulmonary embolism; Z86.718 Personal history of other venous thrombosis and embolism; Z87.01 Personal history of pneumonia (recurrent); Z88.0 Allergy status to penicillin; Z91.14 Patient's other noncompliance with medication regimen; Z95.0 Presence of cardiac pacemaker; Z99.81 Dependence on supplemental oxygen
CPT/HCPCS: 36415; 36600; 71045; 74230; 76700; 80048; 80053; 80307; 82306; 82330; 82533; 82803; 83605; 83690; 83735; 83880; 83970; 84100; 84145; 84439; 84443; 84478; 84481; 84484; 85014; 85018; 85025; 85520; 85610; 85730; 87040; 87070; 87081; 87205; 92950; 93005; 94002; 94003; 94640; 99291; C8929; J0610; J0696; J1644; J1940; J2704; J3010; J3475; J3480; J7060; J7620; Q0162; C9113; J0282; J1160; J1720; J2060; J7030; J7040; J7050

== ENCOUNTER 2018-04-19 21:18 | Inpatient (IN) | payer MEDICAID ==
[~2018-04-19] VITALS: Ht 162.6 cm; Wt 48.3 kg
[~2018-04-19 21:18] MED LIST changes: +ALBU18HF INH; +ASPI-515 NG; +ERGO500017 PO; +FLUT1AER INH; +FURO20TA3 PO; +POTA20PA25 PO; +SPIR25TA PO; +TIOT18CA INH
[2018-04-19] MEDS ORDERED: LORazepam 2 MG/ML, 1ML ONE (21:51)
[2018-04-19] MEDS ORDERED: FUROSEMIDE 20 MG/2 ML ONE ×2 (21:51→21:52)
[2018-04-19 21:55] LABS: MEAN CORPUSCULAR HEMOGLOBIN 28.2 pg (27.0-34.8); MEAN CORPUSCULAR HGB CONC 31.5 g/dL (32.4-35.8); MEAN CORPUSCULAR VOLUME 89.4 fL (80-100); MEAN PLATELET VOLUME 8.6 fL (7.4-10.4); PLATELET COUNT 327 x10^3/uL (130-400)
[2018-04-19] MEDS ORDERED: FUROSEMIDE 40 MG/4 ML IV ONE (22:00)
[2018-04-19] MEDS ORDERED: SODIUM CHLORIDE FLUSH 10ML SYR IVF ONE (22:00)
[2018-04-19] MEDS ORDERED: LORazepam 2 MG/ML, 1ML IVPush ONE (22:00)
[2018-04-19 22:02] LABS: INTERNATIONAL NORMALIZED RATIO 1.44 (0.93-1.1); PROTHROMBIN TIME 14.7 Seconds (9.6-11.5)
[2018-04-19 22:05] LABS: ALANINE AMINOTRANSFERASE 14 U/L (12-78); ALBUMIN 3.2 g/dL (3.4-5.0); ANION GAP 10 mmol/L (5-15); CALCIUM 8.5 mg/dL (8.5-10.1); CHLORIDE 108 mmol/L (98-107); CREATININE 0.56 mg/dL (0.55-1.02)
[2018-04-19 22:09] LABS: ALKALINE PHOSPHATASE 196 U/L (45-117); BILIRUBIN,TOTAL 0.9 mg/dL (0.2-1.0); TOTAL PROTEIN 8.5 g/dL (6.4-8.2); TROPONIN I < 0.015 ng/mL (0.000-0.045)
[2018-04-19 22:16] LABS: BASOPHILS % (AUTO) 0 % (0-1); EOSINOPHILS # (AUTO) 0.36 x10^3/uL (0-0.4); EOSINOPHILS % (AUTO) 2 % (1-7); LYMPHOCYTES # (AUTO) 2.19 x10^3/uL (1-3.4); LYMPHOCYTES % (AUTO) 14 % (22-44); MD SCAN; MONOCYTES # (AUTO) 0.92 x10^3/uL (0.2-0.8); MONOCYTES % (AUTO) 6 % (2-9); NEUTROPHILS # (AUTO) 12.74 x10^3/uL (1.8-6.8); NEUTROPHILS % (AUTO) 79 % (42-75)
[2018-04-19 22:39] LABS: MICROSCOPIC NOT IND
[2018-04-19 22:43] LABS: CULTURE INDICATED? NO
[2018-04-19 22:54] LABS: AMPHETAMINE SCREEN, URINE Negative (Negative); BARBITURATE SCREEN, URINE Negative (Negative); BENZODIAZEPINE SCREEN, URINE Negative (Negative); CANNABINOID SCREEN, URINE Negative (Negative); COCAINE SCREEN, URINE Negative (Negative); METHADONE SCREEN, URINE Negative (Negative); OPIATE SCREEN, URINE Negative (Negative)
[2018-04-19] MEDS ORDERED: VANCOMYCIN PER PHARMACY MC PRN (23:00)
[2018-04-19] MEDS ORDERED: CEFTRIAXONE PMX 1GM/50ML 50 ML IV ONE (23:00)
[2018-04-19] MEDS ORDERED: VANCOMYCIN PMX 1GM/200ML 200 ML IV ONE (23:00)
[2018-04-19] MEDS ORDERED: CEFTRIAXONE PMX 1GM/50ML 50 ML ONE (23:18)
[2018-04-20] MEDS ORDERED: ACETAMINOPHEN 325 MG TABLET PO PRN (00:30)
[2018-04-20] MEDS ORDERED: POLYETHYLENE GLYCOL 17 GM PACKET PO PRN (00:30)
[2018-04-20] MEDS ORDERED: BISACODYL 10 MG SUPP PR PRN ×2 (00:30→22:00)
[2018-04-20] MEDS ORDERED: LABETALOL 5MG/ML, 20ML IVPush PRN (00:30)
[2018-04-20] MEDS ORDERED: ENALAPRILAT 1.25 MG/ML, 2ML IVPush PRN (00:30)
[2018-04-20] MEDS ORDERED: DOCUSATE 100 MG CAPSULE PO PRN (00:30)
[2018-04-20 00:50] VITALS: BP 116/76
[2018-04-20] MEDS: ERGOCALCIFEROL 50,000 UNIT CAPSULE PO SCH (01:37)
[2018-04-20] MEDS: CEFTRIAXONE PMX 1GM/50ML 50 ML IV SCH (01:37)
[2018-04-20] MEDS ORDERED: ALBUTEROL SULFATE 2.5 MG/3 ML NPPB PRN (02:30)
[2018-04-20] MEDS: AZITHROMYCIN 500 MG in SODIUM CHLORIDE 0.9% 250 ML IV SCH (02:36)
[2018-04-20] MEDS: POTASSIUM CHLORIDE 20 MEQ PACKET PO SCH ×2 (08:00→16:49)
[2018-04-20 08:05] VITALS: BP 122/84
[2018-04-20] MEDS ORDERED: IPRATROPIUM 0.5 MG/2.5 ML INHA HHN SCH (09:00)
[2018-04-20] MEDS: TEMPLATE NON-FORMULARY MED. (Albuterol Sulfate (Ventolin Hfa) 1 PUFF) INH SCH (09:00)
[2018-04-20] MEDS ORDERED: ASPIRIN 81 MG TABLET EC PO SCH (09:00)
[2018-04-20] MEDS: ALBUTEROL/IPRATROPIUM 2.5MG/0.5MG, 3 ML HHN SCH ×3 (09:06→18:36)
[2018-04-20] MEDS: AMIODARONE 200 MG TABLET PO SCH (09:18)
[2018-04-20] MEDS: RIVAROXABAN 20 MG TABLET PO SCH (09:18)
[2018-04-20] MEDS: FUROSEMIDE 20 MG TABLET PO SCH (09:19)
[2018-04-20] MEDS: LISINOPRIL 5 MG TABLET PO SCH (09:19)
[2018-04-20] MEDS: FLUTICASONE/VILANTEROL 100-25MCG/INH INH SCH (09:19)
[2018-04-20] MEDS: SPIRONOLACTONE 25 MG TABLET PO SCH (09:19)
[2018-04-20] MEDS: GUAIFENESIN/DM 200-20MG, 10ML UDC PO PRN (09:32)
[2018-04-20 14:15] VITALS: BP 128/79
[2018-04-20] MEDS ORDERED: CODE BLUE RESPONSE XX ONE (14:15)
[2018-04-20] MEDS ORDERED: MAGNESIUM SULFATE 1 GM/2 ML ONE (14:15)
[2018-04-20] MEDS ORDERED: ETOMIDATE 20 MG/10 ML ONE (14:15)
[2018-04-20] MEDS ORDERED: 0.9 % SODIUM CHLORIDE 10 ML VIAL ONE (14:15)
[2018-04-20] MEDS ORDERED: SUCCINYLCHOLINE 20 MG/ML, 10ML ONE (14:15)
[2018-04-20] MEDS ORDERED: MAGNESIUM SULFATE PMX 4GM/100M 100 ML IV ONE (14:30)
[2018-04-20 14:43] LABS: BASOPHILS # (AUTO) 0.09 x10^3/uL (0-0.1); BASOPHILS % (AUTO) 1 % (0-1); EOSINOPHILS # (AUTO) 0.14 x10^3/uL (0-0.4); EOSINOPHILS % (AUTO) 1 % (1-7); LYMPHOCYTES # (AUTO) 3.34 x10^3/uL (1-3.4); LYMPHOCYTES % (AUTO) 20 % (22-44); MD NO; MEAN CORPUSCULAR HEMOGLOBIN 28.9 pg (27.0-34.8); MEAN CORPUSCULAR HGB CONC 32.2 g/dL (32.4-35.8); MEAN CORPUSCULAR VOLUME 89.7 fL (80-100); MEAN PLATELET VOLUME 8.3 fL (7.4-10.4); MONOCYTES % (AUTO) 8 % (2-9); NEUTROPHILS # (AUTO) 11.51 x10^3/uL (1.8-6.8); NEUTROPHILS % (AUTO) 70 % (42-75); PLATELET COUNT 291 x10^3/uL (130-400); RED BLOOD COUNT 3.68 x10^6/uL (3.82-5.3)
[2018-04-20] MEDS ORDERED: PROPOFOL 100 ML IV ONE ×2 (14:44→20:40)
[2018-04-20 14:51] LABS: ANION GAP 14 mmol/L (5-15); CALCIUM 7.9 mg/dL (8.5-10.1); CHLORIDE 108 mmol/L (98-107); CREATININE 0.58 mg/dL (0.55-1.02)
[2018-04-20] MEDS ORDERED: FUROSEMIDE 20 MG/2 ML ONE (17:23)
[2018-04-20] MEDS ORDERED: FUROSEMIDE 20 MG/2 ML IVPush ONE (17:30)
[2018-04-20] MEDS ORDERED: SENNA/DOCUSATE TABLET NG PRN (22:00)
[2018-04-20] MEDS ORDERED: SENNOSIDES 8.8 MG/5 ML ORAL SOL NG PRN (22:00)
[2018-04-20] MEDS ORDERED: PROPOFOL 100 ML IV PRN (22:00)
[2018-04-20] MEDS ORDERED: LIDOCAINE-MPF 1%, 2ML ENDO PRN (22:00)
[2018-04-20] MEDS ORDERED: PHARMACY MAY ADJ FOR RENAL FX MC SCH (22:00)
[2018-04-20] MEDS ORDERED: LACTULOSE 20 GM/30 ML UDC NG PRN (22:00)
[2018-04-20] MEDS: ALBUTEROL/IPRATROPIUM 2.5MG/0.5MG, 3 ML INLINE SCH (22:18)
[2018-04-20] MEDS ORDERED: FUROSEMIDE 20 MG/2 ML IV ONE (23:00)
[2018-04-20] MEDS: FAMOTIDINE 20 MG/2 ML IV SCH (23:14)
[2018-04-21] MEDS: CEFTRIAXONE PMX 1GM/50ML 50 ML IV SCH (01:23)
[2018-04-21] MEDS: FENTANYL PF 100 MCG/2ML IVPush PRN ×2 (01:24→01:54)
[2018-04-21] MEDS: AZITHROMYCIN 500 MG in SODIUM CHLORIDE 0.9% 250 ML IV SCH (01:24)
[2018-04-21] MEDS: ALBUTEROL/IPRATROPIUM 2.5MG/0.5MG, 3 ML INLINE SCH ×2 (02:13→06:00)
[2018-04-21 05:14] LABS: BASOPHILS # (AUTO) 0.04 x10^3/uL (0-0.1); BASOPHILS % (AUTO) 1 % (0-1); EOSINOPHILS # (AUTO) 0.27 x10^3/uL (0-0.4); EOSINOPHILS % (AUTO) 3 % (1-7); LYMPHOCYTES # (AUTO) 1.45 x10^3/uL (1-3.4); LYMPHOCYTES % (AUTO) 16 % (22-44); MD NO; MEAN CORPUSCULAR HEMOGLOBIN 28.8 pg (27.0-34.8); MEAN CORPUSCULAR HGB CONC 32.6 g/dL (32.4-35.8); MEAN CORPUSCULAR VOLUME 88.4 fL (80-100); MEAN PLATELET VOLUME 8.6 fL (7.4-10.4); MONOCYTES # (AUTO) 0.81 x10^3/uL (0.2-0.8); MONOCYTES % (AUTO) 9 % (2-9); NEUTROPHILS # (AUTO) 6.25 x10^3/uL (1.8-6.8); NEUTROPHILS % (AUTO) 71 % (42-75); PLATELET COUNT 242 x10^3/uL (130-400); RED BLOOD COUNT 3.24 x10^6/uL (3.82-5.3)
[2018-04-21 05:24] LABS: ALANINE AMINOTRANSFERASE 10 U/L (12-78); ALBUMIN 2.4 g/dL (3.4-5.0); ANION GAP 8 mmol/L (5-15); CALCIUM 7.6 mg/dL (8.5-10.1); CHLORIDE 109 mmol/L (98-107); CREATININE 0.49 mg/dL (0.55-1.02)
[2018-04-21 05:26] LABS: ALKALINE PHOSPHATASE 141 U/L (45-117); BILIRUBIN,TOTAL 1.1 mg/dL (0.2-1.0); TOTAL PROTEIN 6.4 g/dL (6.4-8.2)
[2018-04-21] MEDS: POTASSIUM CHLORIDE 20 MEQ PACKET PO SCH ×2 (06:12→16:50)
[2018-04-21] MEDS: TEMPLATE NON-FORMULARY MED. (Albuterol Sulfate (Ventolin Hfa) 1 PUFF) INH SCH (07:57)
[2018-04-21] MEDS: FLUTICASONE/VILANTEROL 100-25MCG/INH INH SCH (08:04)
[2018-04-21] MEDS: SPIRONOLACTONE 25 MG TABLET PO SCH (09:54)
[2018-04-21] MEDS: ASPIRIN 81 MG TABLET CHEW PO SCH (09:54)
[2018-04-21] MEDS: AMIODARONE 200 MG TABLET PO SCH (09:54)
[2018-04-21] MEDS: FAMOTIDINE 20 MG/2 ML IV SCH ×2 (09:54→21:56)
[2018-04-21] MEDS: RIVAROXABAN 20 MG TABLET PO SCH (09:55)
[2018-04-21] MEDS: FUROSEMIDE 20 MG TABLET PO SCH (09:55)
[2018-04-21] MEDS: LISINOPRIL 5 MG TABLET PO SCH (09:55)
[2018-04-21] MEDS ORDERED: ALBUTEROL/IPRATROPIUM 2.5MG/0.5MG, 3 ML NEB PRN (11:00)
[2018-04-21] MEDS ORDERED: POTASSIUM CHLORIDE 20 MEQ TAB.ER.PRT PO ONE (11:30)
[2018-04-21] MEDS ORDERED: POTASSIUM CHLORIDE 40 MEQ in SODIUM CHLORIDE 0.9% 500 ML IV ONE (17:30)
[2018-04-22] MEDS: CEFTRIAXONE PMX 1GM/50ML 50 ML IV SCH (00:49)
[2018-04-22] MEDS: AZITHROMYCIN 500 MG in SODIUM CHLORIDE 0.9% 250 ML IV SCH (01:29)
[2018-04-22] MEDS: POTASSIUM CHLORIDE 20 MEQ PACKET PO SCH ×2 (08:20→15:24)
[2018-04-22] MEDS: TEMPLATE NON-FORMULARY MED. (Albuterol Sulfate (Ventolin Hfa) 1 PUFF) INH SCH (08:20)
[2018-04-22] MEDS: RIVAROXABAN 20 MG TABLET PO SCH (08:29)
[2018-04-22] MEDS: LISINOPRIL 5 MG TABLET PO SCH (08:29)
[2018-04-22] MEDS: SPIRONOLACTONE 25 MG TABLET PO SCH (08:30)
[2018-04-22] MEDS: AMIODARONE 200 MG TABLET PO SCH (08:30)
[2018-04-22] MEDS: FUROSEMIDE 20 MG TABLET PO SCH (08:30)
[2018-04-22] MEDS: ONDANSETRON ODT 4 MG PO PRN (08:30)
[2018-04-22] MEDS: ASPIRIN 81 MG TABLET CHEW PO SCH (08:30)
[2018-04-22] MEDS: FAMOTIDINE 20 MG/2 ML IV SCH ×2 (08:31→19:57)
[2018-04-22] MEDS: FLUTICASONE/VILANTEROL 100-25MCG/INH INH SCH (08:38)
[2018-04-22 09:04] LABS: ANION GAP 7 mmol/L (5-15); CALCIUM 8.7 mg/dL (8.5-10.1); CHLORIDE 108 mmol/L (98-107); CREATININE 0.55 mg/dL (0.55-1.02)
[2018-04-22] MEDS ORDERED: MAGNESIUM SULFATE PMX 4GM/100M 100 ML IV ONE (11:00)
[2018-04-22 19:16] VITALS: BP 115/76
[2018-04-22] MEDS: GUAIFENESIN/DM 200-20MG, 10ML UDC PO PRN (20:04)
[2018-04-23] MEDS: CEFTRIAXONE PMX 1GM/50ML 50 ML IV SCH (00:40)
[2018-04-23] MEDS: AZITHROMYCIN 500 MG in SODIUM CHLORIDE 0.9% 250 ML IV SCH (01:13)
[2018-04-23 02:00] VITALS: BP 120/68
[2018-04-23 05:14] LABS: BASOPHILS # (AUTO) 0.05 x10^3/uL (0-0.1); BASOPHILS % (AUTO) 1 % (0-1); EOSINOPHILS % (AUTO) 4 % (1-7); LYMPHOCYTES # (AUTO) 1.82 x10^3/uL (1-3.4); LYMPHOCYTES % (AUTO) 23 % (22-44); MD NO; MEAN CORPUSCULAR HEMOGLOBIN 29.2 pg (27.0-34.8); MEAN CORPUSCULAR HGB CONC 32.4 g/dL (32.4-35.8); MEAN CORPUSCULAR VOLUME 90.1 fL (80-100); MEAN PLATELET VOLUME 8.4 fL (7.4-10.4); MONOCYTES # (AUTO) 0.74 x10^3/uL (0.2-0.8); MONOCYTES % (AUTO) 9 % (2-9); NEUTROPHILS # (AUTO) 5.02 x10^3/uL (1.8-6.8); NEUTROPHILS % (AUTO) 63 % (42-75); PLATELET COUNT 237 x10^3/uL (130-400); RED CELL DISTRIBUTION WIDTH 15.8 % (9.6-15.2)
[2018-04-23 05:23] LABS: ANION GAP 6 mmol/L (5-15); CALCIUM 8.4 mg/dL (8.5-10.1); CHLORIDE 106 mmol/L (98-107)
[2018-04-23 05:26] LABS: CREATININE 0.46 mg/dL (0.55-1.02); TRIGLYCERIDES 43 mg/dL (50-200)
[2018-04-23 06:56] VITALS: BP 118/68
[2018-04-23] MEDS: TEMPLATE NON-FORMULARY MED. (Albuterol Sulfate (Ventolin Hfa) 1 PUFF) INH SCH (07:18)
[2018-04-23] MEDS: POTASSIUM CHLORIDE 20 MEQ PACKET PO SCH ×2 (07:18→14:51)
[2018-04-23] MEDS: FLUTICASONE/VILANTEROL 100-25MCG/INH INH SCH (07:33)
[2018-04-23] MEDS: LISINOPRIL 5 MG TABLET PO SCH (07:33)
[2018-04-23] MEDS: SPIRONOLACTONE 25 MG TABLET PO SCH (07:33)
[2018-04-23] MEDS: FUROSEMIDE 20 MG TABLET PO SCH (07:34)
[2018-04-23] MEDS: ASPIRIN 81 MG TABLET CHEW PO SCH (07:34)
[2018-04-23] MEDS: AMIODARONE 200 MG TABLET PO SCH (07:34)
[2018-04-23] MEDS: FAMOTIDINE 20 MG TABLET PO SCH ×2 (07:34→19:38)
[2018-04-23] MEDS: RIVAROXABAN 20 MG TABLET PO SCH (07:34)
[2018-04-23 12:35] VITALS: BP 129/82
[2018-04-23] MEDS ORDERED: MAGNESIUM SULFATE PMX 2GM/50ML 50 ML IV ONE (16:00)
[2018-04-23 18:36] VITALS: BP 111/61
[2018-04-23] MEDS: GUAIFENESIN/DM 200-20MG, 10ML UDC PO PRN (21:37)
[2018-04-24] MEDS: CEFTRIAXONE PMX 1GM/50ML 50 ML IV SCH (00:35)
[2018-04-24] MEDS: AZITHROMYCIN 500 MG in SODIUM CHLORIDE 0.9% 250 ML IV SCH (01:34)
[2018-04-24 01:45] VITALS: BP 122/75
[2018-04-24] MEDS: ONDANSETRON ODT 4 MG PO PRN (01:53)
[2018-04-24 04:43] LABS: BASOPHILS # (AUTO) 0.05 x10^3/uL (0-0.1); BASOPHILS % (AUTO) 1 % (0-1); EOSINOPHILS % (AUTO) 4 % (1-7); LYMPHOCYTES # (AUTO) 1.77 x10^3/uL (1-3.4); LYMPHOCYTES % (AUTO) 25 % (22-44); MD NO; MEAN CORPUSCULAR HEMOGLOBIN 29.3 pg (27.0-34.8); MEAN CORPUSCULAR HGB CONC 32.4 g/dL (32.4-35.8); MEAN CORPUSCULAR VOLUME 90.5 fL (80-100); MEAN PLATELET VOLUME 8.4 fL (7.4-10.4); MONOCYTES # (AUTO) 0.72 x10^3/uL (0.2-0.8); MONOCYTES % (AUTO) 10 % (2-9); NEUTROPHILS # (AUTO) 4.34 x10^3/uL (1.8-6.8); NEUTROPHILS % (AUTO) 61 % (42-75); PLATELET COUNT 239 x10^3/uL (130-400); RED BLOOD COUNT 3.29 x10^6/uL (3.82-5.3); RED CELL DISTRIBUTION WIDTH 15.5 % (9.6-15.2)
[2018-04-24 04:54] LABS: ANION GAP 6 mmol/L (5-15); CALCIUM 8.2 mg/dL (8.5-10.1); CHLORIDE 105 mmol/L (98-107); CREATININE 0.46 mg/dL (0.55-1.02)
[2018-04-24 07:05] VITALS: BP 127/77
[2018-04-24] MEDS ORDERED: MAGNESIUM SULFATE PMX 4GM/100M 100 ML IV ONE (08:30)
[2018-04-24] MEDS: POTASSIUM CHLORIDE 20 MEQ PACKET PO SCH ×2 (08:46→17:29)
[2018-04-24] MEDS: FLUTICASONE/VILANTEROL 100-25MCG/INH INH SCH (08:48)
[2018-04-24] MEDS: SPIRONOLACTONE 25 MG TABLET PO SCH (08:49)
[2018-04-24] MEDS: AMIODARONE 200 MG TABLET PO SCH (08:49)
[2018-04-24] MEDS: FUROSEMIDE 20 MG TABLET PO SCH (08:50)
[2018-04-24] MEDS: ASPIRIN 81 MG TABLET CHEW PO SCH (08:50)
[2018-04-24] MEDS: FAMOTIDINE 20 MG TABLET PO SCH ×2 (08:50→19:31)
[2018-04-24] MEDS: LISINOPRIL 5 MG TABLET PO SCH (08:50)
[2018-04-24] MEDS: TEMPLATE NON-FORMULARY MED. (Albuterol Sulfate (Ventolin Hfa) 1 PUFF) INH SCH (08:50)
[2018-04-24] MEDS: RIVAROXABAN 20 MG TABLET PO SCH (08:50)
[2018-04-24] MEDS: GUAIFENESIN/DM 200-20MG, 10ML UDC PO PRN (12:21)
[2018-04-24 12:29] VITALS: BP 123/82
[2018-04-24 19:32] VITALS: BP 107/67
[2018-04-25 00:37] VITALS: BP 100/63
[2018-04-25] MEDS: CEFTRIAXONE PMX 1GM/50ML 50 ML IV SCH (00:37)
[2018-04-25 05:15] LABS: BASOPHILS # (AUTO) 0.07 x10^3/uL (0-0.1); BASOPHILS % (AUTO) 1 % (0-1); EOSINOPHILS # (AUTO) 0.29 x10^3/uL (0-0.4); EOSINOPHILS % (AUTO) 5 % (1-7); LYMPHOCYTES # (AUTO) 1.67 x10^3/uL (1-3.4); LYMPHOCYTES % (AUTO) 27 % (22-44); MD NO; MEAN CORPUSCULAR HEMOGLOBIN 29.3 pg (27.0-34.8); MEAN CORPUSCULAR HGB CONC 32.6 g/dL (32.4-35.8); MEAN CORPUSCULAR VOLUME 89.8 fL (80-100); MEAN PLATELET VOLUME 8.5 fL (7.4-10.4); MONOCYTES # (AUTO) 0.63 x10^3/uL (0.2-0.8); MONOCYTES % (AUTO) 10 % (2-9); NEUTROPHILS # (AUTO) 3.54 x10^3/uL (1.8-6.8); NEUTROPHILS % (AUTO) 57 % (42-75); PLATELET COUNT 262 x10^3/uL (130-400); RED BLOOD COUNT 3.63 x10^6/uL (3.82-5.3); RED CELL DISTRIBUTION WIDTH 15.5 % (9.6-15.2)
[2018-04-25 05:22] LABS: ALBUMIN 2.6 g/dL (3.4-5.0); ANION GAP 5 mmol/L (5-15); CALCIUM 8.9 mg/dL (8.5-10.1); CHLORIDE 104 mmol/L (98-107)
[2018-04-25 05:25] LABS: ALANINE AMINOTRANSFERASE 12 U/L (12-78); ALKALINE PHOSPHATASE 167 U/L (45-117); BILIRUBIN,TOTAL 0.6 mg/dL (0.2-1.0); CREATININE 0.52 mg/dL (0.55-1.02); TOTAL PROTEIN 7.4 g/dL (6.4-8.2)
[2018-04-25] MEDS: GUAIFENESIN/DM 200-20MG, 10ML UDC PO PRN (06:06)
[2018-04-25] MEDS: ASPIRIN 81 MG TABLET CHEW PO SCH (07:58)
[2018-04-25] MEDS: FUROSEMIDE 20 MG TABLET PO SCH (07:59)
[2018-04-25] MEDS: LISINOPRIL 5 MG TABLET PO SCH (07:59)
[2018-04-25] MEDS: FAMOTIDINE 20 MG TABLET PO SCH (07:59)
[2018-04-25] MEDS: SPIRONOLACTONE 25 MG TABLET PO SCH (07:59)
[2018-04-25 08:00] VITALS: BP 115/63
[2018-04-25] MEDS: AMIODARONE 200 MG TABLET PO SCH (08:00)
[2018-04-25] MEDS: POTASSIUM CHLORIDE 20 MEQ PACKET PO SCH (08:00)
[2018-04-25] MEDS: TEMPLATE NON-FORMULARY MED. (Albuterol Sulfate (Ventolin Hfa) 1 PUFF) INH SCH (08:00)
[2018-04-25] MEDS: FLUTICASONE/VILANTEROL 100-25MCG/INH INH SCH (08:01)
[2018-04-25] MEDS: RIVAROXABAN 20 MG TABLET PO SCH (08:01)
[2018-04-25] MEDS ORDERED: SODIUM CHLORIDE 0.9% 1,000 ML IV SCH (08:27)
[2018-04-25] MEDS ORDERED: CEFTRIAXONE PMX 1GM/50ML 50 ML IV SCH (12:00)
[2018-04-25 14:00] VITALS: BP 109/67
[2018-04-25 19:17] VITALS: BP 124/73
[2018-04-25] MEDS: CEFDINIR 300 MG CAPSULE PO SCH (22:29)
[2018-04-26 01:29] VITALS: BP 114/67
[2018-04-26 04:57] LABS: MEAN CORPUSCULAR HEMOGLOBIN 28.8 pg (27.0-34.8); MEAN CORPUSCULAR HGB CONC 32.4 g/dL (32.4-35.8); MEAN CORPUSCULAR VOLUME 88.9 fL (80-100); MEAN PLATELET VOLUME 8.4 fL (7.4-10.4); PLATELET COUNT 321 x10^3/uL (130-400); RED BLOOD COUNT 3.77 x10^6/uL (3.82-5.3); RED CELL DISTRIBUTION WIDTH 15.2 % (9.6-15.2)
[2018-04-26 04:59] LABS: ANION GAP 4 mmol/L (5-15); CALCIUM 8.9 mg/dL (8.5-10.1); CHLORIDE 102 mmol/L (98-107); CREATININE 0.61 mg/dL (0.55-1.02); TRIGLYCERIDES 48 mg/dL (50-200)
[2018-04-26 05:42] LABS: BASOPHILS # (AUTO) 0.08 x10^3/uL (0-0.1); BASOPHILS % (AUTO) 1 % (0-1); EOSINOPHILS # (AUTO) 0.43 x10^3/uL (0-0.4); EOSINOPHILS % (AUTO) 6 % (1-7); LYMPHOCYTES # (AUTO) 2.22 x10^3/uL (1-3.4); LYMPHOCYTES % (AUTO) 31 % (22-44); MD SCAN; MONOCYTES # (AUTO) 0.78 x10^3/uL (0.2-0.8); MONOCYTES % (AUTO) 11 % (2-9); NEUTROPHILS # (AUTO) 3.76 x10^3/uL (1.8-6.8); NEUTROPHILS % (AUTO) 52 % (42-75)
[2018-04-26] MEDS ORDERED: MAGNESIUM SULFATE PMX 4GM/100M 100 ML IV ONE (06:00)
[2018-04-26 07:45] VITALS: BP 113/72
[2018-04-26] MEDS ORDERED: MIDAZOLAM 1 MG/ML, 5ML ONE (08:11)
[2018-04-26] MEDS ORDERED: VANCOMYCIN 500 MG ONE (08:11)
[2018-04-26] MEDS ORDERED: VANCOMYCIN PMX 1GM/200ML 200 ML ONE (08:11)
[2018-04-26] MEDS ORDERED: FENTANYL PF 100 MCG/2ML ONE (08:11)
[2018-04-26] MEDS ORDERED: LIDOCAINE/PF 1%, 30ML ONE (08:11)
[2018-04-26] MEDS ORDERED: DIPHENHYDRAMINE 50 MG/ML, 1ML ONE (08:41)
[2018-04-26] MEDS ORDERED: SODIUM CHLORIDE 0.9% 1,000 ML IV SCH (09:00)
[2018-04-26] MEDS: TEMPLATE NON-FORMULARY MED. (Albuterol Sulfate (Ventolin Hfa) 1 PUFF) INH SCH (09:00)
[2018-04-26 09:30] VITALS: BP 124/80
[2018-04-26] MEDS ORDERED: ACETAMINOPHEN 325 MG TABLET PO PRN (09:30)
[2018-04-26] MEDS: ASPIRIN 81 MG TABLET CHEW PO SCH (10:47)
[2018-04-26] MEDS: LISINOPRIL 5 MG TABLET PO SCH (10:48)
[2018-04-26] MEDS: SPIRONOLACTONE 25 MG TABLET PO SCH (10:48)
[2018-04-26] MEDS: FUROSEMIDE 20 MG TABLET PO SCH (10:48)
[2018-04-26] MEDS: AMIODARONE 200 MG TABLET PO SCH (10:48)
[2018-04-26] MEDS: CEFDINIR 300 MG CAPSULE PO SCH (10:48)
[2018-04-26] MEDS: HYDROcodone/APAP 5/325 TABLET PO PRN (10:54)
[2018-04-26] MEDS: FLUTICASONE/VILANTEROL 100-25MCG/INH INH SCH (10:55)
[2018-04-26 13:15] VITALS: BP 120/69
[2018-04-26] MEDS ORDERED: VANCOMYCIN PMX 1GM/200ML 200 ML IVPB SCH (20:00)
[2018-04-26] MEDS: SODIUM CHLORIDE FLUSH 10ML SYR IVF SCH (20:07)
[2018-04-26 20:26] VITALS: BP 107/71
[2018-04-27 00:23] VITALS: BP 133/79
[2018-04-27] MEDS: ERGOCALCIFEROL 50,000 UNIT CAPSULE PO SCH (00:52)
[2018-04-27] MEDS: HYDROcodone/APAP 5/325 TABLET PO PRN (00:52)
[2018-04-27 05:34] LABS: BASOPHILS # (AUTO) 0.06 x10^3/uL (0-0.1); BASOPHILS % (AUTO) 1 % (0-1); EOSINOPHILS % (AUTO) 2 % (1-7); LYMPHOCYTES # (AUTO) 2.09 x10^3/uL (1-3.4); LYMPHOCYTES % (AUTO) 22 % (22-44); MD NO; MEAN CORPUSCULAR HEMOGLOBIN 28.8 pg (27.0-34.8); MEAN CORPUSCULAR HGB CONC 32.2 g/dL (32.4-35.8); MEAN CORPUSCULAR VOLUME 89.6 fL (80-100); MEAN PLATELET VOLUME 8.3 fL (7.4-10.4); MONOCYTES # (AUTO) 1.01 x10^3/uL (0.2-0.8); MONOCYTES % (AUTO) 11 % (2-9); NEUTROPHILS # (AUTO) 6.02 x10^3/uL (1.8-6.8); NEUTROPHILS % (AUTO) 64 % (42-75); PLATELET COUNT 332 x10^3/uL (130-400); RED BLOOD COUNT 4.17 x10^6/uL (3.82-5.3); RED CELL DISTRIBUTION WIDTH 15.5 % (9.6-15.2)
[2018-04-27 05:46] LABS: CHLORIDE 99 mmol/L (98-107)
[2018-04-27 05:56] LABS: ALANINE AMINOTRANSFERASE 16 U/L (12-78); ALBUMIN 3.1 g/dL (3.4-5.0); ALKALINE PHOSPHATASE 205 U/L (45-117); ANION GAP 5 mmol/L (5-15); BILIRUBIN,TOTAL 1.2 mg/dL (0.2-1.0); CALCIUM 9.1 mg/dL (8.5-10.1); CREATININE 0.68 mg/dL (0.55-1.02); TOTAL PROTEIN 8.6 g/dL (6.4-8.2)
[2018-04-27 06:45] VITALS: BP 138/72
[2018-04-27] MEDS ORDERED: MAGNESIUM SULF. PMX 20GM/500ML 500 ML IV PRN (07:30)
[2018-04-27] MEDS: TEMPLATE NON-FORMULARY MED. (Albuterol Sulfate (Ventolin Hfa) 1 PUFF) INH SCH (09:00)
[2018-04-27] MEDS ORDERED: MAGNESIUM OXIDE 400 MG TABLET PO SCH (09:00)
[2018-04-27] MEDS: FLUTICASONE/VILANTEROL 100-25MCG/INH INH SCH (09:08)
[2018-04-27] MEDS: AMIODARONE 200 MG TABLET PO SCH (09:09)
[2018-04-27] MEDS: ASPIRIN 81 MG TABLET CHEW PO SCH (09:09)
[2018-04-27] MEDS: SPIRONOLACTONE 25 MG TABLET PO SCH (09:09)
[2018-04-27] MEDS: SODIUM CHLORIDE FLUSH 10ML SYR IVF SCH (09:09)
[2018-04-27] MEDS: LISINOPRIL 5 MG TABLET PO SCH (09:09)
[2018-04-27] MEDS: FUROSEMIDE 20 MG TABLET PO SCH (09:10)
[2018-04-27] MEDS ORDERED: SPIR25TA PO (11:02)
[2018-04-27] MEDS ORDERED: FURO20TA3 PO (11:02)
[2018-04-27] MEDS ORDERED: MAGN400T26 PO (11:02)
[2018-04-27 12:20] VITALS: BP 126/76
== END 2018-04-27 12:55 | disposition home or self-care (01) | DRG 226 ==
LOC: ED 23:03 → EDIP 23:27 → 4EST 04-20 00:05 → CCU 04-20 14:48 → 5SO 04-22 15:00 → DCLOUNGE 04-27 12:37
PROVIDERS: ADMIT Hospitalist; ATTEND Hospitalist
PROC: 5A12012 Performance of Cardiac Output, Single, Manual (ICD-10-PCS; 2018-04-20)
PROC: 5A1935Z Respiratory Ventilation, Less than 24 Consecutive Hours (ICD-10-PCS; 2018-04-21)
PROC: 0BH17EZ Insertion of Endotracheal Airway into Trachea, Via Natural or Artificial Opening (ICD-10-PCS; 2018-04-21)
PROC: 02PA3MZ Removal of Cardiac Lead from Heart, Percutaneous Approach (ICD-10-PCS; principal; 2018-04-26)
PROC: 0JH608Z Insertion of Defibrillator Generator into Chest Subcutaneous Tissue and Fascia, Open Approach (ICD-10-PCS; 2018-04-26)
PROC: 02HK3KZ Insertion of Defibrillator Lead into Right Ventricle, Percutaneous Approach (ICD-10-PCS; 2018-04-26)
PROC: 0JPT0PZ Removal of Cardiac Rhythm Related Device from Trunk Subcutaneous Tissue and Fascia, Open Approach (ICD-10-PCS; 2018-04-26)
DX: I11.0 Hypertensive heart disease with heart failure (principal); E43 Unspecified severe protein-calorie malnutrition; I46.9 Cardiac arrest, cause unspecified; J18.9 Pneumonia, unspecified organism; J96.21 Acute and chronic respiratory failure with hypoxia; D68.69 Other thrombophilia; Z68.1 Body mass index [BMI] 19.9 or less, adult; E87.2 Acidosis; I47.2 Ventricular tachycardia; I48.1 Persistent atrial fibrillation; J44.0 Chronic obstructive pulmonary disease with (acute) lower respiratory infection; Z99.11 Dependence on respirator [ventilator] status; I50.43 Acute on chronic combined systolic (congestive) and diastolic (congestive) heart failure; I42.9 Cardiomyopathy, unspecified; E03.9 Hypothyroidism, unspecified; E05.90 Thyrotoxicosis, unspecified without thyrotoxic crisis or storm; E83.42 Hypomagnesemia; E87.6 Hypokalemia; F14.10 Cocaine abuse, uncomplicated; I27.20 Pulmonary hypertension, unspecified; I48.2 Chronic atrial fibrillation; K80.20 Calculus of gallbladder without cholecystitis without obstruction; Z51.5 Encounter for palliative care; Z79.01 Long term (current) use of anticoagulants; Z86.711 Personal history of pulmonary embolism; Z86.718 Personal history of other venous thrombosis and embolism; Z86.72 Personal history of thrombophlebitis; Z86.79 Personal history of other diseases of the circulatory system; Z87.891 Personal history of nicotine dependence; Z88.0 Allergy status to penicillin; Z91.19 Patient's noncompliance with other medical treatment and regimen; Z95.810 Presence of automatic (implantable) cardiac defibrillator; Z99.81 Dependence on supplemental oxygen
CPT/HCPCS: 33223; 33233; 33234; 33249; 36005; 36415; 36600; 71045; 80048; 80053; 80307; 81003; 82803; 83605; 83735; 83880; 84100; 84145; 84443; 84478; 84484; 85025; 85610; 85730; 87040; 87070; 87081; 87205; 92950; 93005; 94002; 94003; 94640; 96365; 96375; 99156; 99157; C1721; C1892; C1895; J0456; J0696; J1940; J2250; J3010; J3370; J3475; J3480; J3490; J7620; Q0162; J0330; J1200; J2060; J7040; J7050; Q9967; S0028

== ENCOUNTER 2018-09-13 15:15 | Emergency (ER) | payer MEDICAID ==
[~2018-09-13] VITALS: Ht 162.6 cm; Wt 51.0 kg
[~2018-09-13 15:15] MED LIST changes: +MAGN400T26 PO
[2018-09-13 16:01] LABS: MEAN CORPUSCULAR HEMOGLOBIN 30.5 pg (27.0-34.8); MEAN CORPUSCULAR HGB CONC 33.2 g/dL (32.4-35.8); MEAN CORPUSCULAR VOLUME 91.7 fL (80-100); MEAN PLATELET VOLUME 8.4 fL (7.4-10.4); PLATELET COUNT 198 x10^3/uL (130-400); RED BLOOD COUNT 4.21 x10^6/uL (3.82-5.3); RED CELL DISTRIBUTION WIDTH 12.1 % (9.6-15.2)
[2018-09-13 16:13] LABS: ALBUMIN 3.3 g/dL (3.4-5.0); ANION GAP 10 mmol/L (5-15); CALCIUM 8.5 mg/dL (8.5-10.1); CHLORIDE 112 mmol/L (98-107); CREATININE 0.57 mg/dL (0.55-1.02)
[2018-09-13 16:16] LABS: TROPONIN I < 0.015 ng/mL (0.000-0.045)
[2018-09-13 16:18] LABS: BASOPHILS # (AUTO) 0.03 x10^3/uL (0-0.1); BASOPHILS % (AUTO) 0 % (0-1); EOSINOPHILS # (AUTO) 0.39 x10^3/uL (0-0.4); EOSINOPHILS % (AUTO) 5 % (1-7); LYMPHOCYTES # (AUTO) 2.17 x10^3/uL (1-3.4); LYMPHOCYTES % (AUTO) 30 % (22-44); MD SCAN; MONOCYTES # (AUTO) 0.69 x10^3/uL (0.2-0.8); MONOCYTES % (AUTO) 10 % (2-9); NEUTROPHILS # (AUTO) 3.98 x10^3/uL (1.8-6.8); NEUTROPHILS % (AUTO) 55 % (42-75)
[2018-09-13 16:53] VITALS: BP 124/89
== END 2018-09-13 17:54 | disposition home or self-care (01) ==
LOC: ED 17:35
DX: I48.91 Unspecified atrial fibrillation (principal); F14.10 Cocaine abuse, uncomplicated; I50.9 Heart failure, unspecified; E05.90 Thyrotoxicosis, unspecified without thyrotoxic crisis or storm; F17.200 Nicotine dependence, unspecified, uncomplicated; Z88.0 Allergy status to penicillin; Z86.718 Personal history of other venous thrombosis and embolism
CPT/HCPCS: 36415; 71045; 80048; 82040; 84484; 85025; 93005; 99285

== ENCOUNTER 2018-09-28 11:12 | Emergency (ER) | payer MEDICAID ==
[~2018-09-28] VITALS: Ht 162.6 cm; Wt 50.0 kg
[2018-09-28] MEDS ORDERED: ASPIRIN 81 MG TABLET CHEW ONE (11:43)
[2018-09-28] MEDS ORDERED: ASPIRIN 81 MG TABLET CHEW PO ONE (12:00)
[2018-09-28] MEDS ORDERED: SODIUM CHLORIDE FLUSH 10ML SYR IVF ONE (12:00)
[2018-09-28 12:06] LABS: MEAN CORPUSCULAR HEMOGLOBIN 30.1 pg (27.0-34.8); MEAN CORPUSCULAR HGB CONC 33.5 g/dL (32.4-35.8); MEAN CORPUSCULAR VOLUME 90.1 fL (80-100); MEAN PLATELET VOLUME 8.8 fL (7.4-10.4); PLATELET COUNT 243 x10^3/uL (130-400); RED BLOOD COUNT 4.82 x10^6/uL (3.82-5.3); RED CELL DISTRIBUTION WIDTH 12.7 % (9.6-15.2)
[2018-09-28 12:17] LABS: ALBUMIN 3.4 g/dL (3.4-5.0); ANION GAP 7 mmol/L (5-15); CALCIUM 8.6 mg/dL (8.5-10.1); CHLORIDE 106 mmol/L (98-107); CREATININE 0.48 mg/dL (0.55-1.02)
[2018-09-28 12:19] LABS: INTERNATIONAL NORMALIZED RATIO 1.14 (0.93-1.1)
[2018-09-28 12:21] LABS: ALANINE AMINOTRANSFERASE 15 U/L (12-78); ALKALINE PHOSPHATASE 145 U/L (45-117); BILIRUBIN,TOTAL 1.4 mg/dL (0.2-1.0); TROPONIN I < 0.015 ng/mL (0.000-0.045)
[2018-09-28 13:10] LABS: BASOPHILS # (AUTO) 0.04 x10^3/uL (0-0.1); BASOPHILS % (AUTO) 1 % (0-1); EOSINOPHILS # (AUTO) 0.24 x10^3/uL (0-0.4); EOSINOPHILS % (AUTO) 4 % (1-7); LYMPHOCYTES # (AUTO) 1.78 x10^3/uL (1-3.4); LYMPHOCYTES % (AUTO) 30 % (22-44); MD SCAN; MONOCYTES # (AUTO) 0.48 x10^3/uL (0.2-0.8); MONOCYTES % (AUTO) 8 % (2-9); NEUTROPHILS # (AUTO) 3.41 x10^3/uL (1.8-6.8); NEUTROPHILS % (AUTO) 57 % (42-75)
[2018-09-28 14:24] VITALS: BP 130/66
== END 2018-09-28 15:26 | disposition home or self-care (01) ==
LOC: ED 14:01
DX: I48.2 Chronic atrial fibrillation (principal); R07.89 Other chest pain; Z76.0 Encounter for issue of repeat prescription; Z72.9 Problem related to lifestyle, unspecified; I50.9 Heart failure, unspecified; E05.90 Thyrotoxicosis, unspecified without thyrotoxic crisis or storm; J44.9 Chronic obstructive pulmonary disease, unspecified; I11.0 Hypertensive heart disease with heart failure; E03.9 Hypothyroidism, unspecified
CPT/HCPCS: 36415; 71045; 80053; 83735; 83880; 84484; 85025; 85610; 85730; 93005; 99284

== ENCOUNTER 2019-01-26 08:59 | Emergency (ER) | payer MEDICAID ==
[~2019-01-26] VITALS: Ht 162.6 cm; Wt 53.0 kg
[2019-01-26 09:11] VITALS: BP 125/66
--- NOTE | 2019-01-26 09:45 | NUR ---
PT AMBULATORY FROM [facility] TO E 06 IN [facility] AT THIS TIME
== END 2019-01-26 10:29 | disposition home or self-care (01) ==
LOC: ED 10:23
DX: J00 Acute nasopharyngitis [common cold] (principal); I11.0 Hypertensive heart disease with heart failure; I50.9 Heart failure, unspecified; E03.9 Hypothyroidism, unspecified; J44.9 Chronic obstructive pulmonary disease, unspecified; I48.91 Unspecified atrial fibrillation; Z86.718 Personal history of other venous thrombosis and embolism
CPT/HCPCS: 71046; 93005; 99283

== ENCOUNTER 2019-05-11 07:45 | Emergency (ER) | payer MEDICAID ==
[~2019-05-11] VITALS: Ht 162.6 cm; Wt 50.0 kg
--- NOTE | 2019-05-11 08:21 | NUR ---
PT TO ROOM FROM LOBBY
--- NOTE | 2019-05-11 08:33 | NUR ---
PT SATES "I HAVENT BEEN ABLE TO BREATH WELL, FEEL SHORT OF BREATH, AND FEEL A FLUTTER IN MY CHEST" PT HAS HX OF AFLUTTER. PT RESTING COMFORTABLE. O2 APPLIED. VS STABLE. WAITING FOR MD ORDERS.
[2019-05-11] MEDS ORDERED: ASPIRIN 81 MG TABLET CHEW ONE (08:50)
[2019-05-11] MEDS ORDERED: ASPIRIN 81 MG TABLET CHEW PO ONE (09:00)
[2019-05-11] MEDS ORDERED: SODIUM CHLORIDE FLUSH 10ML SYR IVF ONE (09:00)
[2019-05-11] MEDS ORDERED: ALBUTEROL/IPRATROPIUM 2.5MG/0.5MG, 3 ML NPPB ONE (09:00)
[2019-05-11 09:11] LABS: BASOPHILS # (AUTO) 0.04 x10^3/uL (0-0.1); BASOPHILS % (AUTO) 1 % (0-1); EOSINOPHILS # (AUTO) 0.06 x10^3/uL (0-0.4); EOSINOPHILS % (AUTO) 1 % (1-7); LYMPHOCYTES # (AUTO) 1.73 x10^3/uL (1-3.4); LYMPHOCYTES % (AUTO) 21 % (22-44); MD NO; MEAN CORPUSCULAR HEMOGLOBIN 31.1 pg (27.0-34.8); MEAN CORPUSCULAR HGB CONC 32.9 g/dL (32.4-35.8); MEAN CORPUSCULAR VOLUME 94.6 fL (80-100); MEAN PLATELET VOLUME 7.9 fL (7.4-10.4); MONOCYTES # (AUTO) 0.76 x10^3/uL (0.2-0.8); MONOCYTES % (AUTO) 9 % (2-9); NEUTROPHILS # (AUTO) 5.72 x10^3/uL (1.8-6.8); NEUTROPHILS % (AUTO) 69 % (42-75); PLATELET COUNT 221 x10^3/uL (130-400); RED BLOOD COUNT 4.75 x10^6/uL (3.82-5.3); RED CELL DISTRIBUTION WIDTH 12.4 % (9.6-15.2)
[2019-05-11 09:24] LABS: ANION GAP 7 mmol/L (5-15); CALCIUM 9.3 mg/dL (8.5-10.1); CHLORIDE 108 mmol/L (98-107); CREATININE 0.57 mg/dL (0.55-1.02)
[2019-05-11 09:28] LABS: TROPONIN I < 0.015 ng/mL (0.000-0.045)
[2019-05-11 09:50] VITALS: BP 121/75
--- NOTE | 2019-05-11 10:00 | NUR ---
DPatient/Caregiver given discharge instructions and they have confirmed that they understand the instructions. Patient ambulatory with steady gait.
== END 2019-05-11 10:02 | disposition home or self-care (01) ==
LOC: ED 10:00
DX: J44.1 Chronic obstructive pulmonary disease with (acute) exacerbation (principal); I48.91 Unspecified atrial fibrillation; I10 Essential (primary) hypertension; F17.200 Nicotine dependence, unspecified, uncomplicated; E05.90 Thyrotoxicosis, unspecified without thyrotoxic crisis or storm; M54.6 Pain in thoracic spine; Z86.718 Personal history of other venous thrombosis and embolism; Z79.899 Other long term (current) drug therapy; Z91.14 Patient's other noncompliance with medication regimen; Z95.0 Presence of cardiac pacemaker; Z87.01 Personal history of pneumonia (recurrent)
CPT/HCPCS: 36415; 71045; 80048; 82040; 83880; 84484; 85025; 85379; 93005; 99284; J7512

== ENCOUNTER 2019-06-09 17:05 | Inpatient (IN) | payer MEDICAID ==
[~2019-06-09] VITALS: Ht 162.6 cm; Wt 53.6 kg
--- NOTE | 2019-06-09 17:47 | NUR ---
Lunch Coverage: assumed care of pt for primary RN lunch break only. warm bankets and socks given for comfort per pt request. pacemaker interrogation at bedside initiated
[2019-06-09 18:33] LABS: ALANINE AMINOTRANSFERASE 19 U/L (12-78); ALBUMIN 3.6 g/dL (3.4-5.0); ANION GAP 7 mmol/L (5-15); BASOPHILS # (AUTO) 0.03 x10^3/uL (0-0.1); BASOPHILS % (AUTO) 1 % (0-1); CHLORIDE 112 mmol/L (98-107); CREATININE 0.65 mg/dL (0.55-1.02); EOSINOPHILS # (AUTO) 0.09 x10^3/uL (0-0.4); EOSINOPHILS % (AUTO) 1 % (1-7); LYMPHOCYTES # (AUTO) 1.12 x10^3/uL (1-3.4); LYMPHOCYTES % (AUTO) 18 % (22-44); MD NO; MEAN CORPUSCULAR HEMOGLOBIN 30.9 pg (27.0-34.8); MEAN CORPUSCULAR HGB CONC 33.2 g/dL (32.4-35.8); MEAN CORPUSCULAR VOLUME 93.2 fL (80-100); MEAN PLATELET VOLUME 8.4 fL (7.4-10.4); MONOCYTES # (AUTO) 0.74 x10^3/uL (0.2-0.8); MONOCYTES % (AUTO) 12 % (2-9); NEUTROPHILS # (AUTO) 4.24 x10^3/uL (1.8-6.8); NEUTROPHILS % (AUTO) 68 % (42-75); PLATELET COUNT 232 x10^3/uL (130-400); RED CELL DISTRIBUTION WIDTH 12.5 % (9.6-15.2)
[2019-06-09 18:37] LABS: ALKALINE PHOSPHATASE 119 U/L (45-117); BILIRUBIN,TOTAL 0.9 mg/dL (0.2-1.0); TOTAL PROTEIN 8.1 g/dL (6.4-8.2)
[2019-06-09 18:43] LABS: TROPONIN I 0.218 ng/mL (0.000-0.045)
--- NOTE | 2019-06-09 18:53 | NUR ---
INTERROGATION MACHINE STILL READING TRANSMITTING. CRITICAL TROP REPORTED TO DR KEE. PT IN NAD, RESTING QUIETLY. CALL LIGHT WITHIN REACH.
[2019-06-09] MEDS ORDERED: ASPIRIN 81 MG TABLET CHEW PO ONE (20:00)
--- NOTE | 2019-06-09 20:27 | NUR ---
PT WITHOUT PAIN AT THIS TIME, REQUESTING FOOD AND DRINK. PER ERP, PT CAN HAVE WATER. AWAITING [facility] AND ADMIT BED.
[2019-06-09] MEDS ORDERED: ACETAMINOPHEN 325 MG TABLET PO PRN (21:30)
[2019-06-09] MEDS ORDERED: ENALAPRILAT 1.25 MG/ML, 2ML IVPush PRN (21:30)
[2019-06-09] MEDS ORDERED: DOCUSATE 100 MG CAPSULE PO PRN (21:30)
[2019-06-09] MEDS ORDERED: TEMAZEPAM 15 MG CAPSULE PO PRN (21:30)
[2019-06-09] MEDS ORDERED: LIDODERM 5% PATCH TD PRN (21:30)
[2019-06-09] MEDS: NICOTINE 21 MG/24 HR PATCH.TD24 TD SCH (21:50)
[2019-06-09] MEDS ORDERED: ALBUTEROL SULFATE 2.5 MG/3 ML ONE (21:54)
[2019-06-09 22:16] VITALS: BP 129/80
[2019-06-09] MEDS: ALBUTEROL SULFATE 2.5 MG/3 ML NPPB SCH (22:30)
[2019-06-09] MEDS ORDERED: ALBUTEROL SULFATE 2.5 MG/3 ML NPPB PRN (22:30)
[2019-06-10 01:03] VITALS: BP 120/70
[2019-06-10 01:09] LABS: TROPONIN I 0.513 ng/mL (0.000-0.045)
[2019-06-10 06:27] LABS: BASOPHILS # (AUTO) 0.06 x10^3/uL (0-0.1); BASOPHILS % (AUTO) 1 % (0-1); EOSINOPHILS # (AUTO) 0.39 x10^3/uL (0-0.4); EOSINOPHILS % (AUTO) 6 % (1-7); LYMPHOCYTES # (AUTO) 2.88 x10^3/uL (1-3.4); LYMPHOCYTES % (AUTO) 43 % (22-44); MD NO; MEAN CORPUSCULAR HEMOGLOBIN 30.7 pg (27.0-34.8); MEAN CORPUSCULAR HGB CONC 32.4 g/dL (32.4-35.8); MEAN CORPUSCULAR VOLUME 94.8 fL (80-100); MEAN PLATELET VOLUME 8.3 fL (7.4-10.4); MONOCYTES # (AUTO) 0.79 x10^3/uL (0.2-0.8); MONOCYTES % (AUTO) 12 % (2-9); NEUTROPHILS # (AUTO) 2.53 x10^3/uL (1.8-6.8); NEUTROPHILS % (AUTO) 38 % (42-75); PLATELET COUNT 183 x10^3/uL (130-400); RED BLOOD COUNT 5.02 x10^6/uL (3.82-5.3); RED CELL DISTRIBUTION WIDTH 12.4 % (9.6-15.2)
[2019-06-10 06:41] LABS: ANION GAP 7 mmol/L (5-15); CALCIUM 9.1 mg/dL (8.5-10.1); CHLORIDE 111 mmol/L (98-107)
[2019-06-10 06:44] LABS: TROPONIN I 0.389 ng/mL (0.000-0.045)
[2019-06-10 07:55] VITALS: BP 121/87
[2019-06-10] MEDS: AMIODARONE 200 MG TABLET PO SCH (08:50)
[2019-06-10] MEDS: RIVAROXABAN 20 MG TABLET PO SCH (08:50)
[2019-06-10] MEDS: ASPIRIN 81 MG TABLET EC PO SCH (08:50)
[2019-06-10] MEDS: FUROSEMIDE 20 MG TABLET PO SCH (08:51)
[2019-06-10] MEDS: SPIRONOLACTONE 25 MG TABLET PO SCH (08:51)
[2019-06-10] MEDS: LISINOPRIL 5 MG TABLET PO SCH (08:51)
[2019-06-10] MEDS: ALBUTEROL SULFATE 2.5 MG/3 ML NPPB SCH ×2 (09:40→20:23)
[2019-06-10] MEDS: BUDESONIDE 0.5 MG/2 ML INHA NPPB SCH ×2 (09:40→20:23)
[2019-06-10] MEDS: LIDODERM REMOVE PATCH NOTE XX SCH (10:00)
[2019-06-10 15:00] VITALS: BP 123/75
[2019-06-10] MEDS ORDERED: POTASSIUM CHLORIDE 40 MEQ in SODIUM CHLORIDE 0.9% 500 ML IV ONE (16:00)
[2019-06-10] MEDS ORDERED: POTASSIUM CHLORIDE 20 MEQ TAB.ER.PRT PO ONE (16:00)
[2019-06-10 19:22] VITALS: BP 121/73
[2019-06-10] MEDS: NICOTINE 21 MG/24 HR PATCH.TD24 TD SCH (21:30)
[2019-06-11 01:00] VITALS: BP 130/79
[2019-06-11] MEDS: ALBUTEROL SULFATE 2.5 MG/3 ML NPPB SCH ×4 (02:22→20:37)
[2019-06-11 05:36] LABS: BASOPHILS # (AUTO) 0.06 x10^3/uL (0-0.1); BASOPHILS % (AUTO) 1 % (0-1); EOSINOPHILS # (AUTO) 0.52 x10^3/uL (0-0.4); EOSINOPHILS % (AUTO) 8 % (1-7); LYMPHOCYTES # (AUTO) 2.79 x10^3/uL (1-3.4); LYMPHOCYTES % (AUTO) 40 % (22-44); MD NO; MEAN CORPUSCULAR HEMOGLOBIN 30.8 pg (27.0-34.8); MEAN CORPUSCULAR HGB CONC 32.6 g/dL (32.4-35.8); MEAN CORPUSCULAR VOLUME 94.4 fL (80-100); MEAN PLATELET VOLUME 8.4 fL (7.4-10.4); MONOCYTES # (AUTO) 0.81 x10^3/uL (0.2-0.8); MONOCYTES % (AUTO) 12 % (2-9); NEUTROPHILS # (AUTO) 2.83 x10^3/uL (1.8-6.8); NEUTROPHILS % (AUTO) 40 % (42-75); PLATELET COUNT 203 x10^3/uL (130-400); RED BLOOD COUNT 4.47 x10^6/uL (3.82-5.3); RED CELL DISTRIBUTION WIDTH 12.6 % (9.6-15.2)
[2019-06-11 05:46] LABS: ANION GAP 6 mmol/L (5-15); CHLORIDE 109 mmol/L (98-107)
[2019-06-11 05:49] LABS: CREATININE 0.53 mg/dL (0.55-1.02)
[2019-06-11 07:07] VITALS: BP 131/74
[2019-06-11] MEDS: RIVAROXABAN 20 MG TABLET PO SCH (08:52)
[2019-06-11] MEDS: ASPIRIN 81 MG TABLET EC PO SCH (08:52)
[2019-06-11] MEDS: FUROSEMIDE 20 MG TABLET PO SCH (08:52)
[2019-06-11] MEDS: SPIRONOLACTONE 25 MG TABLET PO SCH (08:52)
[2019-06-11] MEDS: LISINOPRIL 5 MG TABLET PO SCH (08:53)
[2019-06-11] MEDS: AMIODARONE 200 MG TABLET PO SCH (08:53)
[2019-06-11] MEDS: LIDODERM REMOVE PATCH NOTE XX SCH (08:53)
[2019-06-11] MEDS: BUDESONIDE 0.5 MG/2 ML INHA NPPB SCH ×2 (09:00→20:37)
[2019-06-11 13:29] VITALS: BP 126/68
[2019-06-11 19:30] VITALS: BP 122/74
[2019-06-11] MEDS: NICOTINE 21 MG/24 HR PATCH.TD24 TD SCH (21:30)
[2019-06-12 02:00] VITALS: BP 118/76
[2019-06-12] MEDS: ALBUTEROL SULFATE 2.5 MG/3 ML NPPB SCH ×2 (03:00→08:50)
[2019-06-12 07:50] VITALS: BP 115/72
[2019-06-12] MEDS: BUDESONIDE 0.5 MG/2 ML INHA NPPB SCH (08:50)
[2019-06-12] MEDS: ASPIRIN 81 MG TABLET EC PO SCH (09:17)
[2019-06-12] MEDS: FUROSEMIDE 20 MG TABLET PO SCH (09:17)
[2019-06-12] MEDS: AMIODARONE 200 MG TABLET PO SCH (09:17)
[2019-06-12] MEDS: LISINOPRIL 5 MG TABLET PO SCH (09:17)
[2019-06-12] MEDS: LIDODERM REMOVE PATCH NOTE XX SCH (09:18)
[2019-06-12] MEDS: SPIRONOLACTONE 25 MG TABLET PO SCH (09:18)
[2019-06-12] MEDS: RIVAROXABAN 20 MG TABLET PO SCH (09:18)
[2019-06-12] MEDS ORDERED: DOCU-131 PO (10:53)
[2019-06-12] MEDS ORDERED: METH10TA6 PO (10:53)
[2019-06-12 12:58] VITALS: BP 117/64
== END 2019-06-12 14:14 | disposition home or self-care (01) | DRG 190 ==
LOC: ED 19:19 → EDIP 20:46 → 5SO 21:16
PROVIDERS: ADMIT Family Medicine; ATTEND Family Medicine
PROC: 5A2204Z Restoration of Cardiac Rhythm, Single (ICD-10-PCS; principal; 2019-06-09)
PROC: 4B02XTZ Measurement of Cardiac Defibrillator, External Approach (ICD-10-PCS; 2019-06-09)
DX: I21.4 Non-ST elevation (NSTEMI) myocardial infarction (principal); J96.10 Chronic respiratory failure, unspecified whether with hypoxia or hypercapnia; D68.59 Other primary thrombophilia; I42.0 Dilated cardiomyopathy; I11.0 Hypertensive heart disease with heart failure; I50.42 Chronic combined systolic (congestive) and diastolic (congestive) heart failure; E03.9 Hypothyroidism, unspecified; E05.90 Thyrotoxicosis, unspecified without thyrotoxic crisis or storm; E87.6 Hypokalemia; F14.90 Cocaine use, unspecified, uncomplicated; F17.210 Nicotine dependence, cigarettes, uncomplicated; I25.2 Old myocardial infarction; I48.0 Paroxysmal atrial fibrillation; J44.9 Chronic obstructive pulmonary disease, unspecified; Z79.01 Long term (current) use of anticoagulants; Z86.711 Personal history of pulmonary embolism; Z86.718 Personal history of other venous thrombosis and embolism; Z91.14 Patient's other noncompliance with medication regimen; Z95.810 Presence of automatic (implantable) cardiac defibrillator; F17.213 Nicotine dependence, cigarettes, with withdrawal
CPT/HCPCS: 36415; 71045; 80048; 80053; 83735; 84100; 84443; 84484; 85025; 93005; 93306; 94640; 99291; G0378; J7613; J7626

== ENCOUNTER 2019-09-06 11:49 | Emergency (ER) | payer MEDICAID ==
[~2019-09-06] VITALS: Ht 162.6 cm; Wt 59.8 kg
[2019-09-06] MEDS ORDERED: FLUT1AER INH (12:36)
[2019-09-06] MEDS ORDERED: METH10TA6 PO (12:40)
[2019-09-06] MEDS ORDERED: DILT240C55 PO (12:45)
--- NOTE | 2019-09-06 12:58 | NUR ---
XRAY IN ROOM
--- NOTE | 2019-09-06 13:24 | NUR ---
PIV STARTED. LABS DRAWN.
[2019-09-06 13:25] VITALS: BP 115/64
[2019-09-06 13:25] LABS: MEAN CORPUSCULAR HEMOGLOBIN 31.3 pg (27.0-34.8); MEAN CORPUSCULAR HGB CONC 33.3 g/dL (32.4-35.8); MEAN CORPUSCULAR VOLUME 94.1 fL (80-100); MEAN PLATELET VOLUME 7.4 fL (7.4-10.4); PLATELET COUNT 304 x10^3/uL (130-400); RED BLOOD COUNT 4.12 x10^6/uL (3.82-5.3); RED CELL DISTRIBUTION WIDTH 13.7 % (9.6-15.2)
[2019-09-06 13:30] LABS: ALBUMIN 3.7 g/dL (3.4-5.0); ANION GAP 8 mmol/L (5-15); BASOPHILS # (AUTO) 0.07 x10^3/uL (0-0.1); BASOPHILS % (AUTO) 1 % (0-1); CALCIUM 8.4 mg/dL (8.5-10.1); CHLORIDE 104 mmol/L (98-107); EOSINOPHILS # (AUTO) 0.27 x10^3/uL (0-0.4); EOSINOPHILS % (AUTO) 3 % (1-7); LYMPHOCYTES # (AUTO) 1.94 x10^3/uL (1-3.4); LYMPHOCYTES % (AUTO) 25 % (22-44); MD NO; MONOCYTES % (AUTO) 8 % (2-9); NEUTROPHILS # (AUTO) 5.04 x10^3/uL (1.8-6.8); NEUTROPHILS % (AUTO) 64 % (42-75)
[2019-09-06 13:33] LABS: ALANINE AMINOTRANSFERASE 15 U/L (12-78); ALKALINE PHOSPHATASE 165 U/L (45-117); BILIRUBIN,TOTAL 0.5 mg/dL (0.2-1.0); CREATININE 0.72 mg/dL (0.55-1.02); TOTAL PROTEIN 7.8 g/dL (6.4-8.2)
--- NOTE | 2019-09-06 13:48 | NUR ---
FLOAT RN: PT RESTING IN ROOM. NO ACUTE DISTRESS NOTED. WILL CONTINUE TO MONITOR WHILE PRIMARY RN IS ON BREAK.
[2019-09-06] MEDS ORDERED: LIDOCAINE-MPF 1%, 5ML ONE (13:50)
--- NOTE | 2019-09-06 14:00 | NUR ---
KIRSTY RN: PT REFUSING MYELOGRAM.
--- NOTE | 2019-09-06 14:25 | NUR ---
REPORT GIVEN TO LETY KAUFMAN
== END 2019-09-06 15:10 | disposition home or self-care (01) ==
LOC: ED 13:38
DX: M25.561 Pain in right knee (principal); J44.9 Chronic obstructive pulmonary disease, unspecified; E03.9 Hypothyroidism, unspecified; I11.0 Hypertensive heart disease with heart failure; I50.9 Heart failure, unspecified; I25.2 Old myocardial infarction; E05.90 Thyrotoxicosis, unspecified without thyrotoxic crisis or storm; I48.91 Unspecified atrial fibrillation
CPT/HCPCS: 36415; 71045; 80053; 85025; 99284

== ENCOUNTER 2019-10-05 10:45 | Emergency (ER) | payer MEDICAID ==
[~2019-10-05] VITALS: Ht 162.6 cm; Wt 60.3 kg
[~2019-10-05 10:45] MED LIST changes: +DILT240C55 PO
[2019-10-05 11:21] VITALS: BP 124/79
[2019-10-05] MEDS ORDERED: ONDANSETRON ODT 4 MG ONE (11:22)
--- NOTE | 2019-10-05 11:26 | NUR ---
LAB AT BEDSIDE. PT PROVIDED WITH WARM BROTH PER ERP REQUEST. ODT GIVEN PER MAR. PT DENIES ANY FURTHER NEEDS OR CONCERNS. CALL LIGHT IN REACH.
[2019-10-05] MEDS ORDERED: ONDANSETRON ODT 8 MG PO ONE (11:30)
[2019-10-05 11:37] LABS: BASOPHILS # (AUTO) 0.03 x10^3/uL (0-0.1); BASOPHILS % (AUTO) 1 % (0-1); EOSINOPHILS # (AUTO) 0.18 x10^3/uL (0-0.4); EOSINOPHILS % (AUTO) 4 % (1-7); LYMPHOCYTES # (AUTO) 1.72 x10^3/uL (1-3.4); LYMPHOCYTES % (AUTO) 34 % (22-44); MD NO; MEAN CORPUSCULAR HEMOGLOBIN 32.1 pg (27.0-34.8); MEAN CORPUSCULAR HGB CONC 33.4 g/dL (32.4-35.8); MEAN PLATELET VOLUME 7.9 fL (7.4-10.4); MONOCYTES # (AUTO) 0.32 x10^3/uL (0.2-0.8); MONOCYTES % (AUTO) 6 % (2-9); NEUTROPHILS # (AUTO) 2.81 x10^3/uL (1.8-6.8); NEUTROPHILS % (AUTO) 56 % (42-75); PLATELET COUNT 262 x10^3/uL (130-400); RED BLOOD COUNT 4.41 x10^6/uL (3.82-5.3)
[2019-10-05 11:50] LABS: ALANINE AMINOTRANSFERASE 22 U/L (12-78); ANION GAP 4 mmol/L (5-15); CALCIUM 8.5 mg/dL (8.5-10.1); CHLORIDE 107 mmol/L (98-107); CREATININE 0.69 mg/dL (0.55-1.02)
[2019-10-05 11:53] LABS: ALKALINE PHOSPHATASE 174 U/L (45-117); BILIRUBIN,TOTAL 0.4 mg/dL (0.2-1.0); TOTAL PROTEIN 8.3 g/dL (6.4-8.2)
== END 2019-10-05 12:23 | disposition home or self-care (01) ==
LOC: ED 12:17
DX: K52.9 Noninfective gastroenteritis and colitis, unspecified (principal); R11.2 Nausea with vomiting, unspecified; I11.0 Hypertensive heart disease with heart failure; I50.9 Heart failure, unspecified; J44.9 Chronic obstructive pulmonary disease, unspecified; I25.2 Old myocardial infarction; I48.91 Unspecified atrial fibrillation; E05.90 Thyrotoxicosis, unspecified without thyrotoxic crisis or storm; E03.9 Hypothyroidism, unspecified; F17.200 Nicotine dependence, unspecified, uncomplicated
CPT/HCPCS: 36415; 80053; 83690; 85025; 99283; Q0162

== ENCOUNTER 2019-11-09 09:52 | Emergency (ER) | payer MEDICAID ==
[~2019-11-09] VITALS: Ht 162.6 cm; Wt 60.5 kg
--- NOTE | 2019-11-09 10:17 | NUR ---
AMBULATORY TO ED "I WANT TO MAKE SURE I DONT HAVE PNEUMONIA AGAIN" PROD COUGH X3 DAYS, SLIGHT CHILLS. DENIES CP/SOB. PA IN ROOM FOR EVAL PLAN LABS/XR. CALL NGUYEN IN REACH. PT LAUGHING, TALKING ON PHONE.
[2019-11-09 10:43] LABS: BASOPHILS # (AUTO) 0.03 x10^3/uL (0-0.1); BASOPHILS % (AUTO) 0 % (0-1); EOSINOPHILS # (AUTO) 0.28 x10^3/uL (0-0.4); EOSINOPHILS % (AUTO) 4 % (1-7); LYMPHOCYTES # (AUTO) 1.61 x10^3/uL (1-3.4); LYMPHOCYTES % (AUTO) 22 % (22-44); MD NO; MEAN CORPUSCULAR HGB CONC 33.5 g/dL (32.4-35.8); MEAN CORPUSCULAR VOLUME 95.5 fL (80-100); MEAN PLATELET VOLUME 7.8 fL (7.4-10.4); MONOCYTES # (AUTO) 0.56 x10^3/uL (0.2-0.8); MONOCYTES % (AUTO) 8 % (2-9); NEUTROPHILS # (AUTO) 4.82 x10^3/uL (1.8-6.8); NEUTROPHILS % (AUTO) 66 % (42-75); PLATELET COUNT 291 x10^3/uL (130-400); RED CELL DISTRIBUTION WIDTH 13.2 % (9.6-15.2)
--- NOTE | 2019-11-09 10:47 | NUR ---
roxanne refused x-ray @ [id number]
[2019-11-09 10:48] LABS: ALANINE AMINOTRANSFERASE 28 U/L (12-78); ALBUMIN 3.5 g/dL (3.4-5.0); ANION GAP 7 mmol/L (5-15); CALCIUM 8.2 mg/dL (8.5-10.1); CHLORIDE 107 mmol/L (98-107); CREATININE 0.89 mg/dL (0.55-1.02)
[2019-11-09 10:50] LABS: INTERNATIONAL NORMALIZED RATIO 1.76 (0.93-1.1); PROTHROMBIN TIME 18.1 Seconds (9.6-11.5)
[2019-11-09 10:52] LABS: ALKALINE PHOSPHATASE 137 U/L (45-117); BILIRUBIN,TOTAL 0.8 mg/dL (0.2-1.0); TOTAL PROTEIN 7.8 g/dL (6.4-8.2); TROPONIN I < 0.015 ng/mL (0.000-0.045)
[2019-11-09 11:15] VITALS: BP 116/58
--- NOTE | 2019-11-09 11:16 | NUR ---
CXR CLEAR, AWAITING LACTIC. NAD, TALKING ON PHONE.
[2019-11-09] MEDS ORDERED: ONDANSETRON 2MG/ML, 2ML ONE (12:21)
== END 2019-11-09 11:57 | disposition home or self-care (01) ==
LOC: ED 10:40
DX: J06.9 Acute upper respiratory infection, unspecified (principal); I11.0 Hypertensive heart disease with heart failure; I50.9 Heart failure, unspecified; I48.91 Unspecified atrial fibrillation; J44.9 Chronic obstructive pulmonary disease, unspecified; E05.90 Thyrotoxicosis, unspecified without thyrotoxic crisis or storm; I25.2 Old myocardial infarction; Z88.0 Allergy status to penicillin; Z88.8 Allergy status to other drugs, medicaments and biological substances
CPT/HCPCS: 36415; 71046; 80053; 83605; 83880; 84484; 85025; 85610; 85730; 93005; 99284

== ENCOUNTER 2019-11-10 03:58 | Emergency (ER) | payer MEDICAID ==
[~2019-11-10] VITALS: Ht 162.6 cm; Wt 61.5 kg
--- NOTE | 2019-11-10 04:08 | NUR ---
assessment made. chart up for MD to see.
[2019-11-10] MEDS ORDERED: ONDANSETRON ODT 4 MG ONE (04:57)
[2019-11-10] MEDS ORDERED: ONDANSETRON ODT 4 MG PO ONE (05:00)
[2019-11-10] MEDS ORDERED: MECLIZINE CHEWABLE 25 MG TAB PO ONE (05:00)
--- NOTE | 2019-11-10 05:09 | NUR ---
PT MEDICATED ORDERED. REVIEWED POC W/ PT AND SPOUSE INCLUDING PENDING TESTS AND CHART REVIEW BY ERP.
[2019-11-10 05:13] LABS: ALBUMIN 3.2 g/dL (3.4-5.0); ANION GAP 5 mmol/L (5-15); CALCIUM 8.2 mg/dL (8.5-10.1); CHLORIDE 111 mmol/L (98-107); CREATININE 0.65 mg/dL (0.55-1.02); MEAN CORPUSCULAR HEMOGLOBIN 31.6 pg (27.0-34.8); MEAN CORPUSCULAR HGB CONC 32.8 g/dL (32.4-35.8); MEAN CORPUSCULAR VOLUME 96.4 fL (80-100); MEAN PLATELET VOLUME 7.2 fL (7.4-10.4); PLATELET COUNT 261 x10^3/uL (130-400); RED BLOOD COUNT 3.69 x10^6/uL (3.82-5.3); RED CELL DISTRIBUTION WIDTH 13.1 % (9.6-15.2)
[2019-11-10 05:23] LABS: FREE T4 (FREE THYROXINE) 1.48 ng/dL (0.76-1.46)
[2019-11-10 05:47] VITALS: BP 106/54
[2019-11-10 05:47] LABS: BASOPHILS # (AUTO) 0.04 x10^3/uL (0-0.1); BASOPHILS % (AUTO) 1 % (0-1); EOSINOPHILS # (AUTO) 0.33 x10^3/uL (0-0.4); EOSINOPHILS % (AUTO) 5 % (1-7); LYMPHOCYTES # (AUTO) 1.49 x10^3/uL (1-3.4); LYMPHOCYTES % (AUTO) 21 % (22-44); MD SCAN; MONOCYTES # (AUTO) 0.54 x10^3/uL (0.2-0.8); MONOCYTES % (AUTO) 7 % (2-9); NEUTROPHILS # (AUTO) 4.89 x10^3/uL (1.8-6.8); NEUTROPHILS % (AUTO) 67 % (42-75)
--- NOTE | 2019-11-10 05:47 | NUR ---
PT REPORTS IS FEELING BETTER, RESTING QUIETLY AT THIS TIME.
--- NOTE | 2019-11-10 06:10 | NUR ---
REVIEWED DISCHARGE INSTRUCTIONS AND PRESCRIPTION W/ PT AND SPOUSE, VERBALIZED UNDERSTANDING TO INFORMATION PROVIDED INCLUDING FOLLOW UP CARE, RETURN PRECAUTIONS AND MEDICATIONS, DENIED QUESTIONS/CONCERNS. PT AMBUALTED FROM ED W/ SPOUSE.
== END 2019-11-10 06:11 | disposition home or self-care (01) ==
LOC: ED 04:04
DX: H81.11 Benign paroxysmal vertigo, right ear (principal); E03.9 Hypothyroidism, unspecified; I48.91 Unspecified atrial fibrillation; J44.9 Chronic obstructive pulmonary disease, unspecified; I11.0 Hypertensive heart disease with heart failure; I50.9 Heart failure, unspecified; F17.210 Nicotine dependence, cigarettes, uncomplicated
CPT/HCPCS: 36415; 80048; 82040; 84439; 84443; 85025; 93005; 99284; Q0162

== ENCOUNTER 2019-12-05 13:10 | Emergency (ER) | payer MEDICAID ==
[~2019-12-05] VITALS: Ht 162.6 cm; Wt 61.1 kg
[2019-12-05 13:58] LABS: MEAN CORPUSCULAR HEMOGLOBIN 32.1 pg (27.0-34.8); MEAN CORPUSCULAR HGB CONC 33.2 g/dL (32.4-35.8); MEAN CORPUSCULAR VOLUME 96.7 fL (80-100); MEAN PLATELET VOLUME 7.9 fL (7.4-10.4); PLATELET COUNT 323 x10^3/uL (130-400); RED BLOOD COUNT 4.41 x10^6/uL (3.82-5.3); RED CELL DISTRIBUTION WIDTH 13.3 % (9.6-15.2)
[2019-12-05 14:00] LABS: ANION GAP 6 mmol/L (5-15); CALCIUM 8.7 mg/dL (8.5-10.1); CHLORIDE 105 mmol/L (98-107)
[2019-12-05 14:06] LABS: ALANINE AMINOTRANSFERASE 18 U/L (12-78); ALKALINE PHOSPHATASE 159 U/L (45-117); BILIRUBIN,TOTAL 0.5 mg/dL (0.2-1.0); CREATININE 0.92 mg/dL (0.55-1.02); TOTAL PROTEIN 8.6 g/dL (6.4-8.2); TROPONIN I < 0.015 ng/mL (0.000-0.045)
[2019-12-05 14:17] LABS: BASOPHILS # (AUTO) 0.06 x10^3/uL (0-0.1); BASOPHILS % (AUTO) 1 % (0-1); EOSINOPHILS # (AUTO) 0.47 x10^3/uL (0-0.4); EOSINOPHILS % (AUTO) 6 % (1-7); LYMPHOCYTES # (AUTO) 1.95 x10^3/uL (1-3.4); LYMPHOCYTES % (AUTO) 24 % (22-44); MD SCAN; MONOCYTES # (AUTO) 0.52 x10^3/uL (0.2-0.8); MONOCYTES % (AUTO) 6 % (2-9); NEUTROPHILS # (AUTO) 5.29 x10^3/uL (1.8-6.8); NEUTROPHILS % (AUTO) 64 % (42-75)
[2019-12-05 15:03] VITALS: BP 114/70
--- NOTE | 2019-12-05 15:03 | NUR ---
PT TO ROOM FROM LOBBY, CHANGED IN TO GOWN & UPRIGHT ON GURNEY AWAKE & COMFORTABLE, RESPONDS APPROP TO STAFF, NAD, COMFORT MEASURES PROVIDED, FRIEND AT BS, CALL LIGHT WITHIN REACH.
--- NOTE | 2019-12-05 16:15 | NUR ---
Patient given discharge instructions and Rx, they have confirmed that they understand the instructions. Patient ambulatory with steady gait.
[2019-12-05 16:17] LABS: MICROSCOPIC NOT IND
[2019-12-05 16:20] LABS: CULTURE INDICATED? NO
== END 2019-12-05 16:16 | disposition home or self-care (01) ==
LOC: ED 15:50
DX: R42 Dizziness and giddiness (principal); I25.2 Old myocardial infarction; J44.0 Chronic obstructive pulmonary disease with (acute) lower respiratory infection; E03.9 Hypothyroidism, unspecified; Z86.718 Personal history of other venous thrombosis and embolism; I11.0 Hypertensive heart disease with heart failure; I48.91 Unspecified atrial fibrillation; E05.90 Thyrotoxicosis, unspecified without thyrotoxic crisis or storm; Z86.39 Personal history of other endocrine, nutritional and metabolic disease
CPT/HCPCS: 36415; 71045; 80053; 81003; 84484; 85025; 93005; 99284

== ENCOUNTER 2020-01-12 11:38 | Emergency (ER) | payer MEDICAID ==
[~2020-01-12] VITALS: Ht 162.6 cm; Wt 61.9 kg
--- NOTE | 2020-01-12 12:08 | NUR ---
PT C/O NAUSEA AND FEELING LIKE HAS A GI BUG. PT C/O INTERMITTENT DIZZINES AND DECREASE IN APPETITE. PT DENIES V/D, AND CP. CONNECTED TO MONITORING. CALL LIGHT IN REACH. AWAITING ORDERS AT THIS TIME.
[2020-01-12] MEDS ORDERED: ONDANSETRON ODT 4 MG PO ONE (12:30)
[2020-01-12 12:51] LABS: MEAN CORPUSCULAR HEMOGLOBIN 32.7 pg (27.0-34.8); MEAN CORPUSCULAR HGB CONC 33.6 g/dL (32.4-35.8); MEAN CORPUSCULAR VOLUME 97.4 fL (80-100); MEAN PLATELET VOLUME 7.3 fL (7.4-10.4); PLATELET COUNT 312 x10^3/uL (130-400); RED BLOOD COUNT 4.17 x10^6/uL (3.82-5.3); RED CELL DISTRIBUTION WIDTH 13.3 % (9.6-15.2)
[2020-01-12] MEDS ORDERED: ONDANSETRON ODT 4 MG ONE (12:51)
--- NOTE | 2020-01-12 12:52 | NUR ---
MEDS ADMIN PER JAN. PT RESTING COMFORTABLY ON GURNEY WATCHING TV. VALERIO.
[2020-01-12 12:53] VITALS: BP 105/68
[2020-01-12 13:02] LABS: ALBUMIN 4.2 g/dL (3.4-5.0); ANION GAP 4 mmol/L (5-15); CALCIUM 8.7 mg/dL (8.5-10.1); CHLORIDE 103 mmol/L (98-107)
[2020-01-12 13:07] LABS: ALANINE AMINOTRANSFERASE 21 U/L (12-78); ALKALINE PHOSPHATASE 126 U/L (45-117); BILIRUBIN,TOTAL 0.6 mg/dL (0.2-1.0); CREATININE 0.92 mg/dL (0.55-1.02); TOTAL PROTEIN 8.5 g/dL (6.4-8.2); TROPONIN I < 0.015 ng/mL (0.000-0.045)
--- NOTE | 2020-01-12 13:16 | NUR ---
MD AT BEDSIDE TO UPDATE PT ON POC.
[2020-01-12 13:17] LABS: BASOPHILS % (AUTO) 1 % (0-1); EOSINOPHILS # (AUTO) 0.59 x10^3/uL (0-0.4); EOSINOPHILS % (AUTO) 7 % (1-7); LYMPHOCYTES # (AUTO) 2.03 x10^3/uL (1-3.4); LYMPHOCYTES % (AUTO) 26 % (22-44); MD SCAN; MONOCYTES % (AUTO) 6 % (2-9); NEUTROPHILS # (AUTO) 4.75 x10^3/uL (1.8-6.8); NEUTROPHILS % (AUTO) 60 % (42-75)
[2020-01-12 13:18] LABS: INTERNATIONAL NORMALIZED RATIO 1.67 (0.93-1.1); PROTHROMBIN TIME 17.8 Seconds (9.6-11.5)
[2020-01-12 13:33] LABS: FREE T4 (FREE THYROXINE) 1.11 ng/dL (0.76-1.46)
--- NOTE | 2020-01-12 13:36 | NUR ---
ALL RESULTS ARE BACK AT THIS TIME. CHART UP FOR RECHECK.
== END 2020-01-12 14:04 | disposition home or self-care (01) ==
LOC: ED 13:50
DX: S80.12XA Contusion of left lower leg, initial encounter (principal); I25.2 Old myocardial infarction; J44.9 Chronic obstructive pulmonary disease, unspecified; E05.90 Thyrotoxicosis, unspecified without thyrotoxic crisis or storm; I11.0 Hypertensive heart disease with heart failure; I50.9 Heart failure, unspecified; I48.91 Unspecified atrial fibrillation; Z95.0 Presence of cardiac pacemaker; R00.2 Palpitations; R11.0 Nausea; Z86.718 Personal history of other venous thrombosis and embolism; X58.XXXA Exposure to other specified factors, initial encounter; Y93.89 Activity, other specified; Y92.89 Other specified places as the place of occurrence of the external cause; Y99.8 Other external cause status
CPT/HCPCS: 36415; 71045; 73590; 80053; 83880; 84439; 84443; 84481; 84484; 85025; 85610; 85730; 93005; 99285; Q0162

== ENCOUNTER 2020-02-06 08:17 | Emergency (ER) | payer MEDICAID ==
[~2020-02-06] VITALS: Ht 162.6 cm; Wt 60.0 kg
[2020-02-06] MEDS ORDERED: SODIUM CHLORIDE FLUSH 10ML SYR IVF ONE (08:30)
[2020-02-06] MEDS ORDERED: DIAZEPAM 5 MG/ML, 10ML VIAL IV ONE ×2 (08:30→10:30)
[2020-02-06] MEDS ORDERED: ONDANSETRON 2MG/ML, 2ML IVPush ONE (08:30)
--- NOTE | 2020-02-06 08:45 | NUR ---
pt biba from home after sudden onset dizziness upon waking this am. 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 piv established en route and 4mg zofran administered. pt states continued dizziness and nausea upon arrival. purewick placed for pt comfort. pt connected to all monitors. vss. DELL Altman to bs for assessment. orders received. biological lab technician tobs for draw. tech tobs for ekg. awaiting xr and ct and results.
[2020-02-06] MEDS ORDERED: ONDANSETRON 2MG/ML, 2ML ONE (08:49)
[2020-02-06] MEDS ORDERED: MECLIZINE CHEWABLE 25 MG TAB ONE (08:49)
[2020-02-06 08:51] LABS: BASOPHILS # (AUTO) 0.04 x10^3/uL (0-0.1); BASOPHILS % (AUTO) 1 % (0-1); EOSINOPHILS # (AUTO) 0.17 x10^3/uL (0-0.4); EOSINOPHILS % (AUTO) 2 % (1-7); LYMPHOCYTES # (AUTO) 1.22 x10^3/uL (1-3.4); LYMPHOCYTES % (AUTO) 17 % (22-44); MD NO; MEAN CORPUSCULAR HEMOGLOBIN 32.8 pg (27.0-34.8); MEAN CORPUSCULAR HGB CONC 33.4 g/dL (32.4-35.8); MEAN CORPUSCULAR VOLUME 98.1 fL (80-100); MEAN PLATELET VOLUME 6.9 fL (7.4-10.4); MONOCYTES # (AUTO) 0.31 x10^3/uL (0.2-0.8); MONOCYTES % (AUTO) 4 % (2-9); NEUTROPHILS # (AUTO) 5.63 x10^3/uL (1.8-6.8); NEUTROPHILS % (AUTO) 76 % (42-75); PLATELET COUNT 339 x10^3/uL (130-400); RED BLOOD COUNT 4.13 x10^6/uL (3.82-5.3); RED CELL DISTRIBUTION WIDTH 13.1 % (9.6-15.2)
[2020-02-06] MEDS ORDERED: MECLIZINE CHEWABLE 25 MG TAB PO ONE (09:00)
[2020-02-06] MEDS ORDERED: PLEASE ENTER HEIGHT AND WEIGHT MC SCH (09:00)
[2020-02-06 09:06] LABS: TROPONIN I < 0.015 ng/mL (0.000-0.045)
--- NOTE | 2020-02-06 09:15 | NUR ---
pt resting in room. vss. no needs expressed. all interventions complete. awaiting resutls.
[2020-02-06 09:33] LABS: MICROSCOPIC INDICATED
[2020-02-06 09:40] LABS: ANION GAP 9 mmol/L (5-15); CALCIUM 8.5 mg/dL (8.5-10.1); CHLORIDE 108 mmol/L (98-107); CREATININE 0.88 mg/dL (0.55-1.02)
[2020-02-06] MEDS ORDERED: CEFTRIAXONE PMX 1GM/50ML 50 ML ONE (10:28)
[2020-02-06] MEDS ORDERED: DIAZEPAM 5 MG/ML, 2ML ONE (10:28)
[2020-02-06] MEDS ORDERED: CEFTRIAXONE PMX 1GM/50ML 50 ML IV ONE (10:30)
--- NOTE | 2020-02-06 10:30 | NUR ---
PER PT, OK TO GIVE INFO TO PT'S DAUGHTER FLACO YOAN. Addendum: 02/06/20 at 1031 by [email or web address] PER PTTIN TO GIVE INFO TO PT'S DAUGHTER FLACO CARMINEShanika.
--- NOTE | 2020-02-06 10:36 | NUR ---
PT RESTING IN ROOM. VSS. NO NEEDS EXPRESSED. PT MEDICATED PER MAR. WILL CONTINUE TO MONITOR.
[2020-02-06 11:40] VITALS: BP 126/73
--- NOTE | 2020-02-06 11:41 | NUR ---
pt unable to ambulate without dizziness at this time. lauri Altman and juli Bragg aware. vss. plan to recheck in half an hour.
--- NOTE | 2020-02-06 12:23 | NUR ---
pt now able to ambulate with minimal dizziness. plan to dc.
== END 2020-02-06 12:38 | disposition home or self-care (01) ==
LOC: ED 09:12
DX: N30.00 Acute cystitis without hematuria (principal); R42 Dizziness and giddiness; E03.9 Hypothyroidism, unspecified; J44.9 Chronic obstructive pulmonary disease, unspecified; I25.2 Old myocardial infarction; F17.210 Nicotine dependence, cigarettes, uncomplicated; I11.0 Hypertensive heart disease with heart failure; I50.9 Heart failure, unspecified; I48.91 Unspecified atrial fibrillation
CPT/HCPCS: 36415; 70450; 71045; 80048; 81001; 83880; 84484; 85025; 93005; 96365; 96375; 99285; J0696; J2405; J3360

== ENCOUNTER → 2020-06-12 | Outpatient (CLI) | payer MEDICAID | END | disposition home or self-care (01) | LOC: CFH 15:39 | PROVIDERS: ATTEND Internal Medicine Cardiovascular Disease | DX: I07.1 Rheumatic tricuspid insufficiency (principal); I42.9 Cardiomyopathy, unspecified | CPT/HCPCS: 93306 ==

== ENCOUNTER 2020-06-18 13:03 | Emergency (ER) | payer MEDICAID ==
[~2020-06-18] VITALS: Ht 162.6 cm; Wt 68.0 kg
[2020-06-18 13:09] VITALS: BP 95/61
--- NOTE | 2020-06-18 13:33 | NUR ---
PATIENT CARE ASSOCIATE: PT AMBULATORY WITH STEADY GAIT TO ROOM AT THIS TIME.
[2020-06-18] MEDS ORDERED: ACETAMINOPHEN 500 MG TABLET ONE (13:46)
[2020-06-18] MEDS ORDERED: ACETAMINOPHEN 500 MG TABLET PO ONE (14:00)
== END 2020-06-18 14:31 | disposition home or self-care (01) ==
LOC: ED 14:00
DX: S50.11XA Contusion of right forearm, initial encounter (principal); S60.221A Contusion of right hand, initial encounter; G89.11 Acute pain due to trauma; J44.9 Chronic obstructive pulmonary disease, unspecified; I48.91 Unspecified atrial fibrillation; I50.9 Heart failure, unspecified; Z86.718 Personal history of other venous thrombosis and embolism; Z95.0 Presence of cardiac pacemaker; X58.XXXA Exposure to other specified factors, initial encounter; Y93.89 Activity, other specified; Y92.89 Other specified places as the place of occurrence of the external cause; Y99.8 Other external cause status
CPT/HCPCS: 99284

== ENCOUNTER 2021-02-01 09:13 | Emergency (ER) | payer MEDICAID ==
[~2021-02-01] VITALS: Ht 157.5 cm; Wt 65.0 kg
[~2021-02-01 09:13] MED LIST changes: -ASPI-515 NG; -ASPI-515 PO; +ASPI-963 NG; +ASPI-963 PO; -NICO-487 TD; +NICO-587 TD
[2021-02-01 09:17] VITALS: BP 124/81
[2021-02-01] MEDS ORDERED: DIAZEPAM 5 MG TABLET ONE (09:49)
[2021-02-01] MEDS ORDERED: LIDODERM 5% PATCH TD ONE ×2 (09:58→10:30)
[2021-02-01] MEDS ORDERED: DIAZEPAM 5 MG TABLET PO ONE (10:30)
--- NOTE | 2021-02-01 10:57 | NUR ---
Patient given discharge instructions and they have confirmed that they understand the instructions. Patient ambulatory with steady gait.
== END 2021-02-01 10:58 | disposition home or self-care (01) ==
LOC: ED 09:57
DX: S39.012A Strain of muscle, fascia and tendon of lower back, initial encounter (principal); I11.0 Hypertensive heart disease with heart failure; I50.9 Heart failure, unspecified; J44.9 Chronic obstructive pulmonary disease, unspecified; I48.91 Unspecified atrial fibrillation; E05.90 Thyrotoxicosis, unspecified without thyrotoxic crisis or storm; E03.9 Hypothyroidism, unspecified; I25.2 Old myocardial infarction; Z86.711 Personal history of pulmonary embolism; X58.XXXA Exposure to other specified factors, initial encounter; Y93.89 Activity, other specified; Y92.89 Other specified places as the place of occurrence of the external cause; Y99.8 Other external cause status
CPT/HCPCS: 99284; J7512

== ENCOUNTER 2021-07-05 10:15 | Outpatient (CLI) | payer MEDICAID | END 2021-07-05 23:59 | disposition home or self-care (01) | LOC: CVU 10:15 | PROVIDERS: ATTEND Internal Medicine Cardiovascular Disease | DX: I08.1 Rheumatic disorders of both mitral and tricuspid valves (principal); I11.9 Hypertensive heart disease without heart failure; I48.0 Paroxysmal atrial fibrillation; I42.9 Cardiomyopathy, unspecified | CPT/HCPCS: 93306 ==

== ENCOUNTER 2021-07-18 11:49 | Outpatient (CLI) | payer MEDICAID | END 2021-07-18 23:59 | disposition home or self-care (01) | LOC: CFH 11:49 | PROVIDERS: ATTEND Internal Medicine Cardiovascular Disease | DX: Z02.9 Encounter for administrative examinations, unspecified (principal) ==

== ENCOUNTER 2021-07-31 07:21 | Emergency (ER) | payer MEDICAID ==
[~2021-07-31] VITALS: Ht 162.6 cm; Wt 66.8 kg
--- NOTE | 2021-07-31 07:47 | NUR ---
PT WALKED BACK FROM TRIAGE WITH CHIEF COMPLAINT OF COUGH SOB FOR 3 DAYS, DENIES ALL OTHER SYMPTOMS.
[2021-07-31] MEDS ORDERED: AZITHROMYCIN 500 MG in SODIUM CHLORIDE 0.9% 250 ML IV ONE (09:00)
[2021-07-31] MEDS ORDERED: CEFTRIAXONE 1,000 MG in DEXTROSE 5% 50 ML IVPB ONE (09:00)
[2021-07-31] MEDS ORDERED: SODIUM CHLORIDE FLUSH 10ML SYR IVF ONE (09:00)
[2021-07-31 09:01] LABS: BASOPHILS % (AUTO) 1 % (0-1); EOSINOPHILS % (AUTO) 4 % (1-7); LYMPHOCYTES % (AUTO) 23 % (22-44); MEAN CORPUSCULAR HEMOGLOBIN 33.7 pg (27.0-34.8); MEAN CORPUSCULAR HGB CONC 34.3 g/dL (32.4-35.8); MEAN PLATELET VOLUME 7.4 fL (7.4-10.4); MONOCYTES % (AUTO) 8 % (2-9); NEUTROPHILS % (AUTO) 65 % (42-75); PLATELET COUNT 242 x10^3/uL (130-400); RED BLOOD COUNT 4.41 x10^6/uL (3.82-5.3); RED CELL DISTRIBUTION WIDTH 12.6 % (9.6-15.2)
[2021-07-31 09:18] LABS: ALBUMIN 4.2 g/dL (3.4-5.0); ANION GAP 7 mmol/L (5-15); CALCIUM 9.4 mg/dL (8.5-10.1); CHLORIDE 106 mmol/L (98-107)
--- NOTE | 2021-07-31 09:20 | NUR ---
PT RESTING IN BED. SUPPORTIVE AT BEDSIDE. SIDE RAILS UP X2. CALL LIGHT IN REACH.
[2021-07-31 10:55] VITALS: BP 112/72
== END 2021-07-31 11:01 | disposition home or self-care (01) ==
LOC: ED 07:51
DX: J18.0 Bronchopneumonia, unspecified organism (principal); Z20.822 Contact with and (suspected) exposure to COVID-19; I48.91 Unspecified atrial fibrillation; J44.9 Chronic obstructive pulmonary disease, unspecified; I50.9 Heart failure, unspecified; I25.2 Old myocardial infarction; E03.9 Hypothyroidism, unspecified; Z86.718 Personal history of other venous thrombosis and embolism
CPT/HCPCS: 36415; 71045; 80048; 82040; 83605; 83880; 85025; 87040; 93005; 96365; 96368; 99285; J0456; J0696; J7050; U0003; U0005